=== PATIENT | female | born 1965 | race Two or more races ===

== ENCOUNTER → 2018-06-13 | Day surgery (SDC) | payer OTHER ==
--- NOTE | 2018-06-16 14:01 | OP ---
DATE OF OPERATION: 06/13/2018 PREOPERATIVE DIAGNOSIS: Right breast mass 10 o'clock to 11 o'clock 4 cm from the nipple with suspicious right axillary node. PROCEDURE: Right breast and right axillary node ultrasound-guided core biopsies with clip placements. ANESTHESIA: Local. ATTENDING SURGEON: Maria Alejandra Robertson MD ESTIMATED BLOOD LOSS: Minimal. COMPLICATIONS: None. DESCRIPTION OF PROCEDURE: The patient was made aware of the risks and benefits of the surgery and consented. She was placed in a supine position, and under sterile conditions and 1% lidocaine for local anesthesia, the right axillary node was approached, and a small maurice was made in the skin. Using a 13-gauge suction biopsy device under ultrasound guidance, multiple cores were obtained and submitted to Pathology. Likewise, under ultrasound guidance, a [employer]mark open core clip was placed into the biopsy region. Steri-Strips and a sterile bandage were applied. Right breast mass was then approached. Under sterile conditions with 1% lidocaine for local anesthesia, a small maurice was made in the skin. Using a 13-gauge suction biopsy device under ultrasound guidance, multiple cores were obtained and submitted to Pathology. Likewise, under ultrasound guidance, a U-shaped clip was placed into the biopsy region. Steri-Strips and a sterile dressing was then applied well tolerated by patient. We will contact her with these results. MARIA ALEJANDRA ROBERTSON M.D. [id number]
--- NOTE | 2018-06-16 14:29 | PATH ---
Surgical Pathology Report Patient Name: GENE ARIAS [facility]. Rec. #: [id number] /Age/Gender: 1965 (Age: 53) / F Account: [id number] Location: [facility] Taken: 06/13/2018 Received: 06/13/2018 Reported: 06/16/2018 Physicians: Maria Alejandra Robertson M.D. Specimen(s) Received A: RIGHT AXILLARY LYMPH NODE CORE BIOPSY B: RIGHT BREAST 10:00 4 CM FN CORE BIOPSY Clinical History Ultrasound findings: Highly suspicious/malignant Final Diagnosis A. 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 (See note). Note: No landmark lymph node tissue is identified; this may represent lymph node tissue extensively involved/replaced by metastatic carcinoma. B. breast, right, 10 -:00, 4 cm FN, core biopsy: Invasive ductal carcinoma, poorly differentiated with extensive necrosis. Results of ER and IN studies performed on block B at [facility] are as follows: ER (clone [id number] mouse monoclonal antibody by [employer]): ~5 % nuclear staining with weak intensity (Low Positive). IN (clone16 mouse monoclonal antibody by [employer]): 0 % nuclear staining (Negative). Results of Her2 & Ki67 studies will be reported separately in an addendum. Positive and negative controls (internal if applicable) show appropriate results. Formalin fixation time is within current ASCO/CAP recommendations for ER, IN and Her2 testing. Time to formalin fixation (cold ischemic time) is not given, but presumed to be immediate. Electronically Signed Venecia Lopez M.D. Addendum Reported: 06/17/2018 Addendum Diagnosis Results of Her2 (IHC) & Ki-67 studies performed on block B at [place], [place] ([id number]) are as follows: Her2 IHC (EP3 from [employer], formerly known as [id number], using Fernández Polymer Refine detection kit): 0 (Negative). Ki-67: ~90% (high proliferative index). Positive and negative controls (internal if applicable) show appropriate results. Venecia Lopez M.D. Gross Description A. Received in formalin labeled "right axilla lymph node #1," is a 1.2 x 1.1 x 0.2 cm aggregate of avalos-yellow, irregular to cylindrical portions of fibroadipose tissue admixed with blood clot. The formalin is filtered and the specimen is entirely submitted in one cassette. B. Received in formalin labeled "right breast 10-11:00, 4cmfn #2," is a 1.5 x 1.5 x 0.3 cm aggregate of avalos-yellow, irregular to cylindrical portions of fibroadipose tissue. The formalin is filtered and the specimen is entirely submitted in one cassette. Time to formalin fixation: Not given, presumed immediate Total formalin fixation time: Approximately 6 hours 06/13/201806/13/2018
== END | disposition home or self-care (01) ==
LOC: FRADUS-SUR 10:32
PROVIDERS: ATTEND Surgery Surgical Oncology
PROC: 0HBT3ZX Excision of Right Breast, Percutaneous Approach, Diagnostic (ICD-10-PCS; principal; 2018-06-13)
PROC: 07B53ZX Excision of Right Axillary Lymphatic, Percutaneous Approach, Diagnostic (ICD-10-PCS; 2018-06-13)
PROC: BH47ZZZ Ultrasonography of Upper Extremity (ICD-10-PCS; 2018-06-13)
DX: C50.411 Malignant neoplasm of upper-outer quadrant of right female breast (principal); C77.3 Secondary and unspecified malignant neoplasm of axilla and upper limb lymph nodes; Z17.0 Estrogen receptor positive status [ER+]; N63.11 Unspecified lump in the right breast, upper outer quadrant
CPT/HCPCS: 19083; 76641-TC-RT; 76942-TC; 87899; 88305-TC; 88342-TC; A4648

== ENCOUNTER 2018-07-18 07:22 | Day surgery (SDC) | payer OTHER ==
[2018-07-18] MEDS ORDERED: PALONOSETRON HCL 0.25 MG/5 ML VIAL IVPUSH ONE (08:00)
[2018-07-18] MEDS ORDERED: diphenhydrAMINE HCL 25 MG CAPSULE (FP) PO ONE (08:00)
[2018-07-18] MEDS ORDERED: DEXAMETHASONE SODIUM PHOSPHATE 10 MG in SODIUM CHLORIDE 50 ML IVPB ONE (08:00)
[2018-07-18] MEDS ORDERED: FOSAPREPITANT DIMEGLUMINE 150 MG in SODIUM CHLORIDE 145 ML IVPB ONE (08:00)
[2018-07-18] MEDS ORDERED: ACETAMINOPHEN 325 MG TABLET (FP) PO ONE (08:00)
[2018-07-18] MEDS ORDERED: SODIUM CHLORIDE IV ONE (08:30)
[2018-07-18] MEDS ORDERED: DOCETAXEL IV ONE (08:30)
[2018-07-18] MEDS ORDERED: SODIUM CHLORIDE IVPB ONE (09:30)
[2018-07-18] MEDS ORDERED: CARBOPLATIN IVPB ONE (09:30)
[2018-07-18] MEDS ORDERED: SODIUM CHLORIDE 750 ML IV STA (09:36)
[2018-07-18 09:48] LABS: BASO % 0.1 % (0-2.0); HEMATOCRIT 35.1 % (32.4-45.2); HEMOGLOBIN 11.9 GM/dL (10.7-15.3); LYMPH % 10.1 % (8-40); MCH 31.7 pg (25.7-33.7); MEAN CELL VOLUME 93.1 fl (80-96); MONO % 4.4 % (3.8-10.2); NEUT % 85.4 % (42.8-82.8); PLATELET COUNT 263 K/MM3 (134-434); RBC 3.77 M/mm3 (3.60-5.2); RDW 12.5 % (11.6-15.6); WHITE BLOOD COUNT 7.9 K/mm3 (4.0-10.0)
[2018-07-18 10:18] LABS: ALBUMIN 3.8 g/dl (3.4-5.0); ALK PHOS 95 U/L (45-117); ANION GAP 9 MMOL/L (8-16); BILIRUBIN,DIRECT 0.2 mg/dL (0.0-0.2); BILIRUBIN,TOTAL 0.9 mg/dL (0.2-1); BLOOD UREA NITROGEN 20 mg/dL (7-18); CHLORIDE 105 mmol/L (98-107); CO2 27 mmol/L (21-32); CREATININE 0.6 mg/dL (0.55-1.3); GLUCOSE,RANDOM 138 mg/dL (74-106); POTASSIUM 3.8 mmol/L (3.5-5.1); SGOT/AST 14 U/L (15-37); SGPT/ALT 28 U/L (13-61); SODIUM 141 mmol/L (136-145); TOT PROT 7.6 g/dl (6.4-8.2)
[2018-07-18] MEDS ORDERED: PORTA CATH FLUSH 10 ML IVPUSH ONE (11:10)
[2018-07-18 17:34] VITALS: BP 113/61; PULSE 113; TEMP 98.3
== END 2018-07-18 17:43 | disposition home or self-care (01) ==
LOC: JONCCHEMO 07:22 → J7W 10:13 → JONCCHEMO 17:43
PROVIDERS: ATTEND Internal Medicine Hematology & Oncology
DX: Z51.11 Encounter for antineoplastic chemotherapy (principal); C50.411 Malignant neoplasm of upper-outer quadrant of right female breast; C77.3 Secondary and unspecified malignant neoplasm of axilla and upper limb lymph nodes; Z17.0 Estrogen receptor positive status [ER+]
CPT/HCPCS: 36415; 80048; 80076; 83735; 85025; 96361; 96367; 96375; 96413; 96417; J1453; J2469; J7030; J9171

== ENCOUNTER 2018-07-19 11:46 | Day surgery (SDC) | payer OTHER ==
[~2018-07-19 11:46] MED LIST: PEGFILGRASTIM 6 MG/0.6 ML DISP.SYRIN SQ ONE
[2018-07-19 12:12] VITALS: BP 107/58; PULSE 68; TEMP 98
== END 2018-07-19 12:30 | disposition home or self-care (01) ==
LOC: JONCCHEMO 11:46 → J7W 11:58 → JONCCHEMO 12:30
PROVIDERS: ATTEND Internal Medicine Hematology & Oncology
PROC: 3E013GC Introduction of Other Therapeutic Substance into Subcutaneous Tissue, Percutaneous Approach (ICD-10-PCS; principal; 2018-07-19)
DX: C50.411 Malignant neoplasm of upper-outer quadrant of right female breast (principal); C77.3 Secondary and unspecified malignant neoplasm of axilla and upper limb lymph nodes; Z17.0 Estrogen receptor positive status [ER+]; Z76.89 Persons encountering health services in other specified circumstances
CPT/HCPCS: 96372; J2505

== ENCOUNTER 2018-08-08 06:38 | Day surgery (SDC) | payer OTHER ==
[2018-08-08 09:32] LABS: BASO % 0.7 % (0-2.0); EOS % 0.1 % (0-4.5); HEMATOCRIT 35.8 % (32.4-45.2); HEMOGLOBIN 12.4 GM/dL (10.7-15.3); LYMPH % 19.3 % (8-40); MCH 32.9 pg (25.7-33.7); MCHC 34.6 g/dl (32.0-36.0); MEAN CELL VOLUME 95.1 fl (80-96); MEAN PLT VOLUME 7.9 fl (7.5-11.1); MONO % 5.1 % (3.8-10.2); NEUT % 74.8 % (42.8-82.8); PLATELET COUNT 237 K/MM3 (134-434); RBC 3.76 M/mm3 (3.60-5.2); RDW 13.7 % (11.6-15.6); WHITE BLOOD COUNT 4.3 K/mm3 (4.0-10.0)
[2018-08-08] MEDS ORDERED: FOSAPREPITANT DIMEGLUMINE 150 MG in SODIUM CHLORIDE 150 ML IVPB ONE (10:00)
[2018-08-08] MEDS ORDERED: PALONOSETRON HCL 0.25 MG/5 ML VIAL IVPUSH ONE (10:00)
[2018-08-08] MEDS ORDERED: DEXAMETHASONE SODIUM PHOSPHATE 10 MG in SODIUM CHLORIDE 50 ML IVPB ONE (10:00)
[2018-08-08] MEDS ORDERED: ACETAMINOPHEN 325 MG TABLET (FP) PO ONE (10:00)
[2018-08-08] MEDS ORDERED: diphenhydrAMINE HCL 25 MG CAPSULE (FP) PO ONE (10:00)
[2018-08-08 10:11] LABS: ALK PHOS 121 U/L (45-117); ANION GAP 4 MMOL/L (8-16); BILIRUBIN,DIRECT 0.1 mg/dL (0.0-0.2); BILIRUBIN,TOTAL 0.5 mg/dL (0.2-1); BLOOD UREA NITROGEN 19 mg/dL (7-18); CALCIUM 9.3 mg/dL (8.5-10.1); CHLORIDE 105 mmol/L (98-107); CO2 29 mmol/L (21-32); CREATININE 0.6 mg/dL (0.55-1.3); GLUCOSE,RANDOM 110 mg/dL (74-106); MAGNESIUM 2.1 mg/dL (1.8-2.4); POTASSIUM 4.9 mmol/L (3.5-5.1); SGOT/AST 18 U/L (15-37); SGPT/ALT 40 U/L (13-61); SODIUM 138 mmol/L (136-145); TOT PROT 7.9 g/dl (6.4-8.2)
[2018-08-08] MEDS ORDERED: DOCETAXEL IV ONE (10:30)
[2018-08-08] MEDS ORDERED: SODIUM CHLORIDE IV ONE (10:30)
[2018-08-08] MEDS ORDERED: SODIUM CHLORIDE 750 ML IV SCH (11:15)
[2018-08-08] MEDS ORDERED: DEXAMETHASONE SOD PHOSPHATE 10 MG/1 ML VIAL IVPB ONE (11:15)
[2018-08-08] MEDS ORDERED: SODIUM CHLORIDE IVPB ONE (11:30)
[2018-08-08] MEDS ORDERED: CARBOPLATIN IVPB ONE (11:30)
[2018-08-08 13:35] VITALS: TEMP 98
[2018-08-08] MEDS ORDERED: PORTA CATH FLUSH 10 ML IVPUSH ONE (14:31)
[2018-08-08 17:27] VITALS: BP 113/58; PULSE 61
== END 2018-08-08 17:15 | disposition home or self-care (01) ==
LOC: JONCCHEMO 06:38 → J7W 10:28 → JONCCHEMO 17:15
PROVIDERS: ATTEND Internal Medicine Hematology & Oncology
DX: Z51.11 Encounter for antineoplastic chemotherapy (principal); C50.411 Malignant neoplasm of upper-outer quadrant of right female breast; C77.3 Secondary and unspecified malignant neoplasm of axilla and upper limb lymph nodes; Z17.0 Estrogen receptor positive status [ER+]
CPT/HCPCS: 36415; 80048; 80076; 83735; 85025; 96361; 96367; 96375; 96413; 96417; J1100; J1453; J2469; J7030; J9171

== ENCOUNTER 2018-08-09 10:35 | Day surgery (SDC) | payer OTHER ==
[2018-08-09 11:03] VITALS: BP 115/71; PULSE 78; TEMP 98.4
== END 2018-08-09 11:20 | disposition home or self-care (01) ==
LOC: JONCCHEMO 10:35 → J7W 10:36 → JONCCHEMO 11:20
PROVIDERS: ATTEND Internal Medicine Hematology & Oncology
PROC: 3E013GC Introduction of Other Therapeutic Substance into Subcutaneous Tissue, Percutaneous Approach (ICD-10-PCS; principal; 2018-08-09)
DX: C50.411 Malignant neoplasm of upper-outer quadrant of right female breast (principal); C77.3 Secondary and unspecified malignant neoplasm of axilla and upper limb lymph nodes; Z17.0 Estrogen receptor positive status [ER+]; Z76.89 Persons encountering health services in other specified circumstances
CPT/HCPCS: 96372; J2505

== ENCOUNTER 2018-08-14 15:33 | Inpatient (IN) | payer OTHER ==
--- NOTE | 2018-08-14 15:54 | PDOC ---
Rapid Medical Evaluation Chief Complaint: Cold Symptoms Time Seen by Provider: 08/14/18 15:51 Medical Evaluation: Allergies Allergy/AdvReac Type Severity Reaction Status Date / Time No Known Allergies Allergy Verified 07/16/18 21:12 Vital Signs Temp Pulse Resp BP Pulse Ox 98.9 F 106 H 16 115/73 98 08/14/18 15:40 08/14/18 15:40 08/14/18 15:40 08/14/18 15:40 08/14/18 15:40 08/14/18 15:51 I have performed a brief in-person evaluation of this patient. The patient presents with a chief complaint of: BIBA with h/o breast CA with complains of fever and chills since this AM. Pt report had fever of 104F and took tylenol prior to EMS arriving which fever had improved. Denies cough, SOB, CP, N/V, nasal congestion,. Pertinent physical exam findings: A&O x 3, Afebrile I have ordered the following: CBC, CMP, UA, UCX The patient will proceed to the ED for further evaluation. 08/14/18 15:53 Discharge Disposition - Diagnosis Fever Qualifiers: Fever type: unspecified Qualified Code(s): R50.9 - Fever, unspecified - Discharge Dispostion Condition at time of disposition: Stable - Referrals - Patient Instructions - Post Discharge Activity
[2018-08-14 16:21] LABS: URINE APPEARANCE CLEAR; URINE BILIRUBIN NEGATIVE (<2.0 mg/dL); URINE COLOR LTYELLOW; URINE GLUCOSE (UA) NEGATIVE (NEGATIVE); URINE KETONE NEGATIVE (NEGATIVE); URINE LEUK ESTERASE NEGATIVE (NEGATIVE); URINE NITRITE NEGATIVE (NEGATIVE); URINE PROTEIN NEGATIVE (NEGATIVE); URINE UROBILINOGEN NEGATIVE mg/dL (0.2-1.0)
[2018-08-14 16:25] LABS: HEMATOCRIT 33.4 % (32.4-45.2); HEMOGLOBIN 11.6 GM/dL (10.7-15.3); MCH 32.9 pg (25.7-33.7); MCHC 34.9 g/dl (32.0-36.0); MEAN CELL VOLUME 94.3 fl (80-96); MEAN PLT VOLUME 9.1 fl (7.5-11.1); PLATELET COUNT 161 K/MM3 (134-434); RBC 3.54 M/mm3 (3.60-5.2); RDW 13.9 % (11.6-15.6); WHITE BLOOD COUNT 4.3 K/mm3 (4.0-10.0)
[2018-08-14 16:26] LABS: EOS % 1.3 % (0-4.5); LYMPH % 28.7 % (8-40); MONO % 7.9 % (3.8-10.2); NEUT % 61.1 % (42.8-82.8)
[2018-08-14 16:39] LABS: ALBUMIN 4.4 g/dl (3.4-5.0); ALK PHOS 143 U/L (45-117); ANION GAP 8 MMOL/L (8-16); BILIRUBIN,TOTAL 0.4 mg/dL (0.2-1); BLOOD UREA NITROGEN 18 mg/dL (7-18); CALCIUM 8.7 mg/dL (8.5-10.1); CHLORIDE 102 mmol/L (98-107); CO2 28 mmol/L (21-32); CREATININE 0.6 mg/dL (0.55-1.3); GLUCOSE,RANDOM 97 mg/dL (74-106); POTASSIUM 4.3 mmol/L (3.5-5.1); SGOT/AST 25 U/L (15-37); SGPT/ALT 40 U/L (13-61); SODIUM 137 mmol/L (136-145); TOT PROT 7.5 g/dl (6.4-8.2)
--- NOTE | 2018-08-14 16:46 | PDOC ---
History of Present Illness - General Chief Complaint: Cold Symptoms Stated Complaint: FEVER Time Seen by Provider: 08/14/18 15:51 History Source: Patient - History of Present Illness Initial Comments: 08/14/18 16:55 53 yo female with PMH breast CA (left sided s/p 6 doses chemo and Left total mastectomy, now recent dx right breast Ca, 2nd dose chemo 08/08/18, plan for Right mastectomy) presents with fever that began today around 1pm. She states that her initial temperature was 100.4. She took a cold shower and her temperature improved to 100.2. She denies any other associated symptoms including headache, cough, chills, myalgias, chest pain, SOB, nausea, abdominal pain, vomiting, diarrhea, dysuria, hematuria. She states that with her recent dose of chemo she spoke with her Oncologist, Dr. Finch, who recommended she come to the Emergency room for evaluation and further management. Past History - Travel Traveled outside of the country in the last 30 days: No - Past Medical History Allergies/Adverse Reactions: Allergies Allergy/AdvReac Type Severity Reaction Status Date / Time No Known Allergies Allergy Verified 07/16/18 21:12 Home Medications: Ambulatory Orders NK [No Known Home Medication] 08/14/18 Asthma: No Cancer: Yes (Left breast CA @ 38, recent dx Right breast CA) Cardiac Disorders: No COPD: No Diabetes: No HTN: No - Surgical History Other Surgical History: 08/14/18 17:00 Left total Mastectomy - Immunization History Immunization Up to Date: Yes - Suicide/Smoking/Psychosocial Hx Smoking History: Never smoked Have you smoked in the past 12 months: No Hx Alcohol Use: No Drug/Substance Use Hx: No Review of Systems - Review of Systems Able to Perform ROS?: Yes Is the patient limited Grenadian proficient: Yes Constitutional: Yes: Fever. No: Chills, Loss of Appetite, Night Sweats HEENTM: No: Blurred Vision, Throat Pain Respiratory: No: Cough, Shortness of Breath, Wheezing Cardiac (ROS): No: Chest Pain, Edema ABD/GI: No: Abdominal Distended, Nausea, Vomiting : No: Burning, Dysuria, Discharge, Hematuria Musculoskeletal: No: Back Pain, Muscle Pain Neurological: No: Headache, Weakness *Physical Exam - Vital Signs Last Vital Signs Temp Pulse Resp BP Pulse Ox 98.9 F 106 H 16 115/73 98 02/14/19 15:40 08/14/18 15:40 08/14/18 15:40 08/14/18 15:40 08/14/18 15:40 - Physical Exam Comments: 08/14/18 17:01 GEN: A&O, no acute distress HEENT: moist mucus membranes, no exudates, PERRL, EOMI NECK: Supple, no lymphadenopathy, no point tenderness or nuchal rigidity HEART: Tachycardic, no murmurs or rubs LUNGS: CTA b/l, no wheezes or rhonchi ABDOMEN: Soft, nontender, normoactice bowel sounds EXTREMITIES: no peripheral edema, no calf tenderness Moderate Sedation - Procedure Monitoring Vital Signs: Procedure Monitoring Vital Signs Temperature 98.9 F 08/14/18 15:40 Pulse Rate 106 H 08/14/18 15:40 Respiratory Rate 16 08/14/18 15:40 Blood Pressure 115/73 08/14/18 15:40 O2 Sat by Pulse Oximetry (%) 98 08/14/18 15:40 ED Treatment Course - LABORATORY CBC & Chemistry Diagram: 08/14/18 16:02 08/14/18 16:04 - ADDITIONAL ORDERS Additional order review: Laboratory Results 08/14/18 08/14/18 16:04 16:04 Sodium 137 Potassium 4.3 Chloride 102 Carbon Dioxide 28 Anion Gap 8 BUN 18 Creatinine 0.6 Creat Clearance w eGFR > 60 Random Glucose 97 Calcium 8.7 Total Bilirubin 0.4 AST 25 ALT 40 Alkaline Phosphatase 143 H Total Protein 7.5 Albumin 4.4 Urine Color Ltyellow Urine Appearance Clear Urine pH 5.0 Ur Specific [place] 1.015 Urine Protein Negative Urine Glucose (UA) Negative Urine Ketones Negative Urine Blood Negative Urine Nitrite Negative Urine Bilirubin Negative Urine Urobilinogen Negative Ur Leukocyte Esterase Negative 08/14/18 16:02 RBC 3.54 L MCV 94.3 MCHC 34.9 RDW 13.9 MPV 9.1 D Neutrophils % 61.1 Lymphocytes % 28.7 D Monocytes % 7.9 Eosinophils % 1.3 D Basophils % 1.0 Medical Decision Making - Medical Decision Making 08/14/18 17:[address] Finch who recommends admission for close observation until cultures result, CXR, hydration, cultures (blood/urine/fifi cath), Vanc/ Zosyn, and ID consultation. Discussed with patient who is in agreement with oncology recommendations. 08/14/18 17:30 Case discussed with ED attending, will await CXR and cultures to be drawn and discuss with hospitalist for admission/observation *DC/Admit/Observation/Transfer Diagnosis at time of Disposition: Breast CA Fever Qualifiers: Fever type: unspecified Qualified Code(s): R50.9 - Fever, unspecified - Discharge Dispostion Condition at time of disposition: Stable Decision to Admit order: Yes - Referrals Referrals: Jayla Zamora [Primary Care Provider] - - Patient Instructions - Post Discharge Activity Forms/Work/School Notes: Back to Work
--- NOTE | 2018-08-14 16:49 | PDOC ---
Attending Attestation - HPI HPI: 08/14/18 17:32 The patient is a 53 year old female with a PMH of breast CA who presents to the ER with fever today. Patient states her temperature was 100.4 today. Patient denies any other associated symptoms. Patient follows with Dr. Finch, her oncologist. Denies cp, sob, nausea, vomiting, diarrhea, abd pain, or urinary symptoms. Allergies: NKA Past surgical history: Left total Mastectomy Social history: No reported alcohol, drug or cigarette use. PCP: Dr. Zamora <Leslie Castro - Last Filed: 08/14/18 17:37> - Resident Resident Name: Kendall Real - Physicial Exam PE: 08/14/18 18:15 Agree with resident exam . Patient is alert and oriented x 3 and in no acute distress. Lungs are clear. Heart has regular rate and rhythm. - Medical Decision Making 08/14/18 18:16 Pt presents to the ED complaining of fever at home. Recently started on chemo. Patient has no symptoms that point to a source, and is in no acute distress. However, she was recently started on chemotherapy and Dr. Camacho would like her to be admitted given her immunocompromised state and her fever. Will check labs , blood and urine cx and cxr and start broad spectrum antibiotics. <Carlene Trujillo - Last Filed: 08/14/18 18:18>
[2018-08-14] MEDS ORDERED: LACTATED RINGERS SOLUTION 1000 ML INFUS.BAG IV ONE (17:21)
[2018-08-14] MEDS ORDERED: VANCOMYCIN 1 GM in D5W (PRE-DOCKED) 1,000 MG/250 ML IVPB ONE (17:25)
[2018-08-14] MEDS ORDERED: PIPERACILLIN/TAZOB 3.375 GM 3.375 GM in DEXTROSE 5%-WATER - 50 ML IVPB ONE (17:26)
--- NOTE | 2018-08-14 18:02 | CONSULT ---
Consult - text type - Consultation Consultation Note: Patient seen and exammined Well known to our service 53 y/o patient with stage IIB breast cancer, triple negative , BRCA mutated , on taxotere/carboplatin, here with fever and shaking chaills. Denies abdominal pain/cough/SOB/nausea/vomiting/urinary symptoms Last Vital Signs Temp Pulse Resp BP Pulse Ox 98 F 82 18 125/85 99 08/16/18 09:00 08/16/18 09:00 08/16/18 09:00 08/16/18 09:00 08/16/18 09:00 Cor: RSR, No murmurs, No gallops Lungs: Clear to P&A Abd: Soft, Normal bowel sounds, No organomegaly Ext:No significant edema Labs/Meds reviewed A/P 53 y/o patient with stage IIB breast cancer , triple negative, BRCA mutated,l C2 D7 taxotere/carboplatin Very good clinical response Now with fever to 101 No localizing signs/symptoms Check cultures empiric vanc/zosyn Fluids ID consult
[2018-08-14] MEDS ORDERED: VANCOMYCIN 1 GRAM (PRE-DOCKED) 1,000 MG/250 ML BAG IVPB ONE (19:49)
[2018-08-14] MEDS ORDERED: PIPERACILLIN/TAZOB 3.375 GM 3.375 GM/50 ML BAG IVPB ONE (19:49)
--- NOTE | 2018-08-14 20:29 | HP ---
CHIEF COMPLAINT: fever PCP: Noah Oncology: Josette HISTORY OF PRESENT ILLNESS: This is a 53 year old female with a past medical history of left breast cancer 2002, s/p mastectomy, recent dx right breast cancer, BrCA1 mutation on chemo who presented with fever. Pt denies any other complaints such as cough, runny nose, chest pain, abdominal pain, N/V/D. Pt reports that a bump appeared on her left inner forearm just now. + itchiness. ER course was notable for: (1) given vanc/zosyn (2) CXR unremarkable (3) WBC 4.3 Recent Travel: pt denies PAST MEDICAL HISTORY: Left breast cancer PAST SURGICAL HISTORY: left mastectomy Social History: Smoking: pt denies Alcohol: pt denies Drugs: pt denies Family History: mother , accident father , lung CA aunt s/p breast cancer survivor siblings and children all without medical issues Allergies No Known Allergies Allergy (Verified 07/16/18 21:12) HOME MEDICATIONS: 3 Medication Instructions Recorded NK [No Known Home Medication] 08/14/18 REVIEW OF SYSTEMS CONSTITUTIONAL: present: fever Absent: chills, diaphoresis, generalized weakness, malaise, loss of appetite, weight change HEENT: Absent: rhinorrhea, nasal congestion, throat pain, throat swelling, difficulty swallowing, mouth swelling, ear pain, eye pain, visual changes CARDIOVASCULAR: Absent: chest pain, syncope, palpitations, irregular heart rate, lightheadedness , peripheral edema RESPIRATORY: Absent: cough, shortness of breath, dyspnea with exertion, orthopnea, wheezing, stridor, hemoptysis GASTROINTESTINAL: Absent: abdominal pain, abdominal distension, nausea, vomiting, diarrhea, constipation, melena, hematochezia GENITOURINARY: Absent: dysuria, frequency, urgency, hesitancy, hematuria, flank pain, genital pain MUSCULOSKELETAL: Absent: myalgia, arthralgia, joint swelling, back pain, neck pain SKIN: Present: itching Absent: rash, pallor HEMATOLOGIC/IMMUNOLOGIC: Absent: easy bleeding, easy bruising, lymphadenopathy, frequent infections ENDOCRINE: Absent: unexplained weight gain, unexplained weight loss, heat intolerance, cold intolerance NEUROLOGIC: Absent: headache, focal weakness or paresthesias, dizziness, unsteady gait, seizure, mental status changes, bladder or bowel incontinence PSYCHIATRIC: Absent: anxiety, depression, suicidal or homicidal ideation, hallucinations. PHYSICAL EXAMINATION Vital Signs - 24 hr 3 08/14/18 15:40 Temperature 98.9 F Pulse Rate 106 H Respiratory 16 Rate Blood Pressure 115/73 O2 Sat by Pulse 98 Oximetry (%) GENERAL: Awake, alert, and fully oriented, in no acute distress. HEAD: Normal with no signs of trauma. EYES: Pupils equal, round and reactive to light, extraocular movements intact, sclera anicteric, conjunctiva clear. No lid lag. EARS, NOSE, THROAT: Ears normal, nares patent, oropharynx clear without exudates. Moist mucous membranes. NECK: Normal range of motion, supple without lymphadenopathy, JVD, or masses. LUNGS: Breath sounds equal, clear to auscultation bilaterally. No wheezes, and no crackles. No accessory muscle use. HEART: Regular rate and rhythm, normal S1 and S2 without murmur, rub or gallop. ABDOMEN: Soft, nontender, not distended, normoactive bowel sounds, no guarding, no rebound, no masses. No hepatomegaly or splenomegaly. MUSCULOSKELETAL: Normal range of motion at all joints. No bony deformities or tenderness. No CVA tenderness. UPPER EXTREMITIES: 2+ pulses, warm, well-perfused. No cyanosis. No clubbing. No peripheral edema. LOWER EXTREMITIES: 2+ pulses, warm, well-perfused. No calf tenderness. No peripheral edema. NEUROLOGICAL: Cranial nerves II-XII intact. Normal speech. Normal gait. PSYCHIATRIC: Cooperative. Good eye contact. Appropriate mood and affect. SKIN: Warm, dry, normal turgor, normal capillary refill. + papule left inner forearm, flesh colored, approx 0.7cm diameter. No erythema to surrounding skin Laboratory Results - last 24 hr 3 08/14/18 08/14/18 08/14/18 08/14/18 16:02 16:04 16:04 16:25 WBC 4.3 RBC 3.54 L Hgb 11.6 Hct 33.4 MCV 94.3 MCH 32.9 MCHC 34.9 RDW 13.9 Plt Count 161 D MPV 9.1 D Absolute Neuts (auto) 2.6 Neutrophils % 61.1 Lymphocytes % 28.7 D Monocytes % 7.9 Eosinophils % 1.3 D Basophils % 1.0 Nucleated RBC % 0 Sodium 137 Potassium 4.3 Chloride 102 Carbon Dioxide 28 Anion Gap 8 BUN 18 Creatinine 0.6 Creat Clearance w eGFR > 60 Random Glucose 97 Calcium 8.7 Total Bilirubin 0.4 AST 25 ALT 40 Alkaline Phosphatase 143 H Total Protein 7.5 Albumin 4.4 Urine Color Ltyellow Urine Appearance Clear Urine pH 5.0 Ur Specific [place] 1.015 Urine Protein Negative Urine Glucose (UA) Negative Urine Ketones Negative Urine Blood Negative Urine Nitrite Negative Urine Bilirubin Negative Urine Urobilinogen Negative Ur Leukocyte Esterase Negative Influenza A (Rapid) Negative Influenza B (Rapid) Negative ASSESSMENT/PLAN: 53yF with Breast cancer currently on chemo presented with fever. Fever of unknown origin in setting of current chemotherapy - flu swab negative, u/a negative, CXR unremarkable - cont coverage with vanc/zosyn for now - pt expected to become neutropenic in the next few days, monitor CBC, s/p neulasta on 08/09 - ID consult Skin papule - consider derm consult, monitor closely for s/s progressing rash Breast cancer - s/p chemo 08/08: carboplatin, docetaxel, fosaprepitant, palonosetron, dex and benadryl - d/w Dr. Finch, will be entering [facility] in next few days. DVT PPX - heparin bid FEN - tolerating po - monitor BMP, lytes stable presently - regular diet as tolerated Dispo: pt currently requires further inpatient management for IV antibiotics and close monitoring of her CBC. Visit type - Emergency Visit Emergency Visit: Yes ED Registration Date: 08/14/18 Care time: The patient presented to the Emergency Department on the above date and was hospitalized for further evaluation of their emergent condition. - New Patient This patient is new to me today: Yes Date on this admission: 08/14/18 - Critical Care Critical Care patient: No
[2018-08-14 22:09] LABS: PLATELET ESTIMATE ADEQUATE
[2018-08-14] MEDS ORDERED: HEPARIN NA (PORCINE) 5,000 UNITS/ML 1ML VIAL ONE (23:26)
[2018-08-14] MEDS: HEPARIN NA (PORCINE) 5,000 UNITS/ML 1ML VIAL SQ SCH (23:48)
[2018-08-15 02:49] VITALS: BMI 27.5
[2018-08-15] MEDS ORDERED: PIPERACILLIN/TAZOBACTAM 3.375 GM VIAL IVPB ONE (02:56)
[2018-08-15] MEDS ORDERED: DEXTROSE 5%-WATER - 50 ML IVPB ONE ×2 (02:56→15:55)
[2018-08-15] MEDS ORDERED: PIPERACILLIN/TAZOB 3.375 GM 3.375 GM in DEXTROSE 5%-WATER - 50 ML IVPB ONE (03:00)
[2018-08-15] MEDS ORDERED: SODIUM CHLORIDE 500 ML IV STA (07:08)
[2018-08-15 07:47] LABS: BASO % 1.2 % (0-2.0); EOS % 1.2 % (0-4.5); HEMATOCRIT 29.8 % (32.4-45.2); HEMOGLOBIN 10.2 GM/dL (10.7-15.3); LYMPH % 29.2 % (8-40); MCH 32.2 pg (25.7-33.7); MCHC 34.4 g/dl (32.0-36.0); MEAN CELL VOLUME 93.4 fl (80-96); MEAN PLT VOLUME 8.8 fl (7.5-11.1); MONO % 18.5 % (3.8-10.2); NEUT % 49.9 % (42.8-82.8); PLATELET COUNT 127 K/MM3 (134-434); RBC 3.18 M/mm3 (3.60-5.2); RDW 13.9 % (11.6-15.6); WHITE BLOOD COUNT 2.9 K/mm3 (4.0-10.0)
[2018-08-15 08:10] LABS: ANION GAP 4 MMOL/L (8-16); BLOOD UREA NITROGEN 13 mg/dL (7-18); CALCIUM 8.8 mg/dL (8.5-10.1); CHLORIDE 102 mmol/L (98-107); CO2 32 mmol/L (21-32); CREATININE 0.5 mg/dL (0.55-1.3); GLUCOSE,RANDOM 85 mg/dL (74-106); MAGNESIUM 2.3 mg/dL (1.8-2.4); PHOSPHOROUS 4.4 mg/dL (2.5-4.9); POTASSIUM 4.4 mmol/L (3.5-5.1); SODIUM 137 mmol/L (136-145)
[2018-08-15] MEDS: SODIUM CHLORIDE 1,000 ML IV SCH (09:27)
[2018-08-15] MEDS: HEPARIN NA (PORCINE) 5,000 UNITS/ML 1ML VIAL SQ SCH ×2 (09:27→22:24)
--- NOTE | 2018-08-15 12:56 | PN ---
Progress Note (short form) - Note Progress Note: ID consult dictated imp/reccd 53 yo female with recurrent breast cancer s/p second cycle chemo 07/28 no neutropoenic admitted yesterday with fever 100.4 no symptoms cultured and admitted given vanco/zosyn no further fevers workup negative to date cultures pending suspect transient fever she looks well rocephin today if cultures negative and afebrile home in am off antibiotics d/w dr miller Problem List - Problems (1) Fever Code(s): R50.9 - FEVER, UNSPECIFIED Qualifiers: Fever type: unspecified Qualified Code(s): R50.9 - Fever, unspecified (2) Breast CA Code(s): C50.919 - MALIGNANT NEOPLASM OF UNSP SITE OF UNSPECIFIED FEMALE BREAST
--- NOTE | 2018-08-15 15:43 | PN ---
Progress Note, Physician Chief Complaint: Fever Breast CA L mastectomy History of Present Illness: Previous notes and events reviewed awake and alert NAD currently afebrile WBC 2.9 denies chest pain, SOB - Current Medication List Current Medications: Active Medications Heparin Sodium (Porcine) (Heparin -) 5,000 unit SQ BID [facility] Last Admin: 08/15/18 09:27 Dose: 5,000 unit Sodium Chloride (Normal Saline -) 1,000 mls @ 100 mls/hr IV ASDIR [facility] Last Admin: 08/15/18 09:27 Dose: 100 mls/hr Ceftriaxone Sodium 1 gm/ (Dextrose) 50 mls @ 100 mls/hr IVPB DAILY [facility]; Protocol - Objective Vital Signs: Vital Signs Temperature 98.7 F 08/15/18 13:42 Pulse Rate 102 H 08/15/18 13:42 Respiratory Rate 18 08/15/18 13:42 Blood Pressure 113/67 08/15/18 13:42 O2 Sat by Pulse Oximetry (%) 98 08/15/18 09:00 Constitutional: Yes: No Distress, Calm Eyes: Yes: Conjunctiva Clear HENT: Yes: Normocephalic Cardiovascular: Yes: Regular Rate and Rhythm Respiratory: Yes: Regular, CTA Bilaterally Gastrointestinal: Yes: Normal Bowel Sounds, Soft Musculoskeletal: Yes: Muscle Weakness Extremities: Yes: WNL Edema: No Neurological: Yes: Alert, Oriented Psychiatric: Yes: Alert, Oriented Labs: CBC, BMP 08/15/18 06:00 08/15/18 06:00 Problem List - Problems (1) Breast CA Assessment/Plan: -oncology on board -currently afebrile -ID on board -cont with ceftriaxone -monitor WBC Code(s): C50.919 - MALIGNANT NEOPLASM OF UNSP SITE OF UNSPECIFIED FEMALE BREAST (2) Fever Assessment/Plan: -ID on board -BC, UC pending -currently afebrile -continue ceftriaxone Code(s): R50.9 - FEVER, UNSPECIFIED Qualifiers: Fever type: unspecified Qualified Code(s): R50.9 - Fever, unspecified Assessment/Plan see problem list dvt ppx
[2018-08-15] MEDS ORDERED: cefTRIAXone SODIUM 1 GM VIAL ONE (15:55)
[2018-08-15] MEDS: CEFTRIAXONE 1 GM in DEXTROSE 5%-WATER - 50 ML IVPB SCH (15:57)
--- NOTE | 2018-08-15 16:03 | PN ---
Progress Note (short form) - Note Progress Note: Patient seen and examined Offers no specific complaints on ROS Last Vital Signs Temp Pulse Resp BP Pulse Ox 98.7 F 102 H 18 113/67 98 08/15/18 13:42 08/15/18 13:42 08/15/18 13:42 08/15/18 13:42 08/15/18 09:00 HEENT: NATASHA, EOM Intact Oropharynx: No thrush, No mucositis Cor: RSR, No murmurs, No gallops Lungs: Clear to P&A Abd: Soft, Normal bowel sounds, No organomegaly Ext:No significant edema Skin: No rashes, Integument intact CBC, BMP 08/15/18 06:00 08/15/18 06:00 Current Medications Generic Name Dose Route Start Last Admin Trade Name Freq PRN Reason Stop Dose Admin Heparin Sodium (Porcine) 5,000 unit 08/14/18 22:00 08/15/18 09:27 Heparin - SQ 5,000 unit BID ABEL Administration Sodium Chloride 1,000 mls @ 100 mls/hr 08/15/18 08:08 08/15/18 09:27 Normal Saline - IV 100 mls/hr ASDIR ABEL Administration Ceftriaxone Sodium 1 gm/ 50 mls @ 100 mls/hr 08/15/18 13:00 08/15/18 15:57 Dextrose IVPB 100 mls/hr DAILY ABEL Administration Protocol Impression: Breast ca Chemotherapy Fevers--etiology unclear Neutropenia secondary to chemotherapy Plan: Antibiotic management per ID G-CSF
[2018-08-15] MEDS ORDERED: TBO-FILGRASTIM 300 MCG/0.5 ML DISP.SYRINGE SQ ONE (16:15)
--- NOTE | 2018-08-15 19:08 | CONS ---
DATE OF CONSULTATION: DATE OF DICTATION: 08/15/2018 INFECTIOUS DISEASE CONSULTATION REQUESTING CONSTITUTION PARTY: Hospitalist Service CONSULTING PHYSICIAN: Martha Gonzalez M.D. HISTORY OF PRESENT ILLNESS: This is a 53-year-old woman with recurrent breast cancer status post her second cycle of chemotherapy on July 28. She came to the emergency room yesterday with fever of 100.4. She had no localizing symptoms. She denied nausea, vomiting, cough, shortness of breath, abdominal pain or chest pain. She has a port that is not tender. She was given vancomycin and Zosyn in the ER and admitted for further evaluation. White count was 4.3. PAST MEDICAL HISTORY: Notable for left breast cancer in 2002 status post mastectomy. She now has right breast cancer and is on Taxotere and carboplatin. Today is resting comfortably and feeling well. Past medical history is as stated. FAMILY HISTORY: Notable for lung cancer in her father, breast cancer in her aunt. ALLERGIES: No known drug allergies. MEDICATION: List was not available. SOCIAL HISTORY: Originally from [facility] [place]. Denies any smoking, alcohol or drug use. REVIEW OF SYSTEMS: Fever is resolved and she feels fine. She had a transient itchy bump on her left arm that has now gone away. PHYSICAL EXAMINATION: GENERAL: She is awake and alert, pleasant woman in no acute distress. VITAL SIGNS: Temperature 98.7F, pulse 89, blood pressure 113/67, respiratory rate 18. She is saturating 98% on room air. HEENT: Normocephalic. Eyes are anicteric. She has no thrush. She has some alopecia. NECK: Supple. Port site is without any erythema. BREAST: Her left breast mastectomy sites are well healed. There is no erythema of either breast. ABDOMEN: Soft, nontender. LUNGS: Clear. EXTREMITIES: Without edema. She has no rash. LABORATORY: White count yesterday was 4.3, today is 2.9, hemoglobin 10.2, platelets are 127. BUN and creatinine are 13 and 0.5. LFTs are normal. Urinalysis is negative. Influenza screen is negative. Cultures are pending. A chest x-ray was done which shows no evidence of any infiltrate. IMPRESSION: In summary, this is a 53-year-old woman with breast cancer admitted status post chemotherapy with low grade fever doing well today. She is not neutropenic. If her cultures remain negative and her fevers resolve, it would be reasonable tomorrow to discharge her home off antibiotics. She has been switched to ceftriaxone given the fact she is not neutropenic. Case was discussed with Dr. Carvalho. MARTHA GONZALEZ M.D. [id number] MTDD
[2018-08-16] MEDS ORDERED: DEXTROSE 5%-WATER - 50 ML IVPB ONE (09:10)
[2018-08-16] MEDS ORDERED: cefTRIAXone SODIUM 1 GM VIAL ONE (09:10)
[2018-08-16] MEDS: SODIUM CHLORIDE 1,000 ML IV SCH (09:15)
[2018-08-16] MEDS: HEPARIN NA (PORCINE) 5,000 UNITS/ML 1ML VIAL SQ SCH (09:15)
[2018-08-16] MEDS: CEFTRIAXONE 1 GM in DEXTROSE 5%-WATER - 50 ML IVPB SCH (09:15)
[2018-08-16 09:27] VITALS: BP 125/85; PULSE 82; TEMP 98
[2018-08-16 09:31] LABS: BASO % 0.5 % (0-2.0); EOS % 0.4 % (0-4.5); HEMATOCRIT 29.3 % (32.4-45.2); HEMOGLOBIN 10.1 GM/dL (10.7-15.3); LYMPH % 15.6 % (8-40); MCH 32.6 pg (25.7-33.7); MCHC 34.5 g/dl (32.0-36.0); MEAN CELL VOLUME 94.2 fl (80-96); MONO % 13.3 % (3.8-10.2); NEUT % 70.2 % (42.8-82.8); PLATELET COUNT 140 K/MM3 (134-434); RBC 3.11 M/mm3 (3.60-5.2); RDW 13.8 % (11.6-15.6); WHITE BLOOD COUNT 9.1 K/mm3 (4.0-10.0)
[2018-08-16 11:48] LABS: ALBUMIN 3.4 g/dl (3.4-5.0); ALK PHOS 123 U/L (45-117); ANION GAP 8 MMOL/L (8-16); BILIRUBIN,TOTAL 0.4 mg/dL (0.2-1); BLOOD UREA NITROGEN 9 mg/dL (7-18); CALCIUM 8.3 mg/dL (8.5-10.1); CHLORIDE 107 mmol/L (98-107); CO2 26 mmol/L (21-32); CREATININE 0.5 mg/dL (0.55-1.3); GLUCOSE,RANDOM 70 mg/dL (74-106); POTASSIUM 4.3 mmol/L (3.5-5.1); SGOT/AST 25 U/L (15-37); SGPT/ALT 41 U/L (13-61); SODIUM 141 mmol/L (136-145); TOT PROT 6.6 g/dl (6.4-8.2)
--- NOTE | 2018-08-16 12:01 | DS ---
Physical Examination Vital Signs: Vital Signs Temperature 98 F 08/16/18 09:00 Pulse Rate 82 08/16/18 09:00 Respiratory Rate 18 08/16/18 09:00 Blood Pressure 125/85 08/16/18 09:00 O2 Sat by Pulse Oximetry (%) 99 08/16/18 09:00 Findings/Remarks: Patient is a 53 y/o female with history of L breast CA with mastectomy and recent diagnosis of R breast CA. Patient is actively receiving chemotherapy and developed fever at home. In ER CXR was unremarkable with no leukocytosis noted with WBC 4.3. While in-patient evalued by ID and started on IV ABT which was tolerated with no adverse reactions noted. During hospital stay patient was afebrile but noticed to be neutropenic at 2.9. Followed by hematology and received neupogen yesterday and today WBC 9.1. Denies complaints of pain, nausea, vomiting, SOB. Constitutional: Yes: Well Nourished, No Distress, Calm Eyes: Yes: Conjunctiva Clear HENT: Yes: Normocephalic Neck: Yes: Supple Cardiovascular: Yes: Regular Rate and Rhythm Respiratory: Yes: Regular, CTA Bilaterally Gastrointestinal: Yes: Normal Bowel Sounds, Soft Musculoskeletal: Yes: WNL Extremities: Yes: WNL Edema: No Neurological: Yes: Alert, Oriented Psychiatric: Yes: Alert, Oriented Labs: CBC, BMP 08/16/18 07:33 08/16/18 07:33 Microbiology 08/14/18 16:04 Urine - Urine Clean Catch Urine Culture - Final NO GROWTH OBTAINED 08/14/18 18:40 Blood - Sharona Cath Blood Culture - Preliminary NO GROWTH OBTAINED AFTER 24 HOURS, INCUBATION TO CONTINUE FOR 4 DAYS. 08/14/18 17:49 Blood - Peripheral Venous Blood Culture - Preliminary NO GROWTH OBTAINED AFTER 24 HOURS, INCUBATION TO CONTINUE FOR 4 DAYS. 08/14/18 17:24 Blood - Peripheral Venous Blood Culture - Preliminary NO GROWTH OBTAINED AFTER 24 HOURS, INCUBATION TO CONTINUE FOR 4 DAYS. Discharge Summary Reason For Visit: FEVER, MALIGNANT NEOPLASM OF BREAST Current Active Problems Breast CA (Acute) Fever (Acute) Hospital Course: see progress notes Laboratory Results - last 24 hr 08/16/18 08/16/18 07:33 07:33 WBC 9.1 RBC 3.11 L Hgb 10.1 L Hct 29.3 L MCV 94.2 MCH 32.6 MCHC 34.5 RDW 13.8 Plt Count 140 MPV 9.0 Absolute Neuts (auto) 6.4 Neutrophils % 70.2 D Lymphocytes % 15.6 D Monocytes % 13.3 H Eosinophils % 0.4 Basophils % 0.5 Nucleated RBC % 0 Sodium 141 Potassium 4.3 Chloride 107 Carbon Dioxide 26 Anion Gap 8 BUN 9 Creatinine 0.5 L Creat Clearance w eGFR > 60 Random Glucose 70 L Calcium 8.3 L Total Bilirubin 0.4 AST 25 ALT 41 Alkaline Phosphatase 123 H Total Protein 6.6 Albumin 3.4 Microbiology 08/14/18 16:04 Urine Culture - Final Urine - Urine Clean Catch NO GROWTH OBTAINED 08/14/18 18:40 Blood Culture - Preliminary Blood - Sharona Cath NO GROWTH OBTAINED AFTER 24 HOURS, INCUBATION TO CONTINUE FOR 4 DAYS. 08/14/18 17:49 Blood Culture - Preliminary Blood - Peripheral Venous NO GROWTH OBTAINED AFTER 24 HOURS, INCUBATION TO CONTINUE FOR 4 DAYS. 08/14/18 17:24 Blood Culture - Preliminary Blood - Peripheral Venous NO GROWTH OBTAINED AFTER 24 HOURS, INCUBATION TO CONTINUE FOR 4 DAYS. Active Medications Generic Name Dose Route Start Last Admin Trade Name Dicksonq PRN Reason Stop Dose Admin Heparin Sodium (Porcine) 5,000 unit 08/14/18 22:00 08/16/18 09:15 Heparin - SQ 5,000 unit BID ABEL Administration Sodium Chloride 1,000 mls @ 100 mls/hr 08/15/18 08:08 08/16/18 09:15 Normal Saline - IV Not Given ASDIR ABEL Ceftriaxone Sodium 1 gm/ 50 mls @ 100 mls/hr 08/15/18 13:00 08/16/18 09:15 Dextrose IVPB 100 mls/hr DAILY ABEL Administration Protocol Condition: Stable - Instructions Diet, Activity, Other Instructions: Patient to follow up with PMD in 3-4 days Patient to follow up with Oncologist within 1 week of discharge continue with medication as prescribed avoid sick contacts if develop fever, severe pain at home return to ER Referrals: Jayla Zamora [Primary Care Provider] - Disposition: HOME - Home Medications Comprehensive Discharge Medication List: Ambulatory Orders NK [No Known Home Medication] 08/14/18
[2018-08-16 12:33] LABS: ANISOCYTOSIS 0; MACROCYTOSIS 0; PLATELET ESTIMATE DECREASED
== END 2018-08-16 15:34 | disposition home or self-care (01) | DRG 660 ==
LOC: JER 15:33 → JERBED 19:51 → OBSVTOIN 22:05 → J7W 08-15 00:26
PROVIDERS: ADMIT Internal Medicine; ATTEND Family Medicine
DX: D70.1 Agranulocytosis secondary to cancer chemotherapy (principal); R50.9 Fever, unspecified; C50.919 Malignant neoplasm of unspecified site of unspecified female breast
CPT/HCPCS: 36415; 71046-TC-FY; 80048; 80053; 81003; 83735; 84100; 85025; 87040; 87086; 87804; 99282-25; G0378; J1447; J1644; J7030

== ENCOUNTER 2018-08-28 05:49 | Day surgery (SDC) | payer OTHER ==
[2018-08-28] MEDS ORDERED: DEXAMETHASONE SODIUM PHOSPHATE 10 MG, DIPHENHYDRAMINE 25 MG in SODIUM CHLORIDE 100 ML IVPB ONE (08:00)
[2018-08-28] MEDS ORDERED: FOSAPREPITANT DIMEGLUMINE 150 MG in SODIUM CHLORIDE 145 ML IVPB ONE (08:00)
[2018-08-28] MEDS ORDERED: PALONOSETRON HCL 0.25 MG/5 ML VIAL IVPUSH ONE (08:00)
[2018-08-28] MEDS ORDERED: ACETAMINOPHEN 325 MG TABLET (FP) PO ONE (08:00)
[2018-08-28] MEDS ORDERED: SODIUM CHLORIDE IV ONE (08:30)
[2018-08-28] MEDS ORDERED: DOCETAXEL IV ONE (08:30)
[2018-08-28] MEDS ORDERED: CARBOPLATIN IVPB ONE (09:30)
[2018-08-28] MEDS ORDERED: SODIUM CHLORIDE IVPB ONE (09:30)
[2018-08-28 09:55] LABS: BASO % 0.1 % (0-2.0); HEMATOCRIT 32.9 % (32.4-45.2); HEMOGLOBIN 11.5 GM/dL (10.7-15.3); LYMPH % 20.3 % (8-40); MCH 33.8 pg (25.7-33.7); MCHC 34.9 g/dl (32.0-36.0); MEAN CELL VOLUME 96.7 fl (80-96); MEAN PLT VOLUME 7.7 fl (7.5-11.1); MONO % 8.8 % (3.8-10.2); NEUT % 70.8 % (42.8-82.8); PLATELET COUNT 144 K/MM3 (134-434); RDW 16.4 % (11.6-15.6); WHITE BLOOD COUNT 6.8 K/mm3 (4.0-10.0)
[2018-08-28] MEDS ORDERED: SODIUM CHLORIDE 500 ML IV STA (10:16)
[2018-08-28 10:25] LABS: ALBUMIN 4.3 g/dl (3.4-5.0); ALK PHOS 108 U/L (45-117); ANION GAP 6 MMOL/L (8-16); BILIRUBIN,TOTAL 0.5 mg/dL (0.2-1); BLOOD UREA NITROGEN 15 mg/dL (7-18); CALCIUM 9.8 mg/dL (8.5-10.1); CHLORIDE 105 mmol/L (98-107); CO2 27 mmol/L (21-32); CREATININE 0.6 mg/dL (0.55-1.3); GLUCOSE,RANDOM 95 mg/dL (74-106); POTASSIUM 4.7 mmol/L (3.5-5.1); SGOT/AST 19 U/L (15-37); SGPT/ALT 44 U/L (13-61); SODIUM 137 mmol/L (136-145); TOT PROT 7.9 g/dl (6.4-8.2)
[2018-08-28 10:28] LABS: ALBUMIN 4.3 g/dl (3.4-5.0); BILIRUBIN,DIRECT 0.1 mg/dL (0.0-0.2); BILIRUBIN,TOTAL 0.6 mg/dL (0.2-1); MAGNESIUM 1.9 mg/dL (1.8-2.4); TOT PROT 7.9 g/dl (6.4-8.2)
[2018-08-28] MEDS ORDERED: MAGNESIUM SULF 50% (8.12 MEQ/2 ML-1 GM VIAL) IVPB ONE (10:42)
[2018-08-28 17:21] VITALS: TEMP 98
[2018-08-28] MEDS ORDERED: PORTA CATH FLUSH 10 ML IVPUSH ONE (17:21)
[2018-08-28 18:28] VITALS: BP 121/68; PULSE 84
== END 2018-08-28 18:29 | disposition home or self-care (01) ==
LOC: JONCCHEMO 05:49 → J7W 10:41 → JONCCHEMO 18:29
PROVIDERS: ATTEND Internal Medicine Hematology & Oncology
DX: Z51.11 Encounter for antineoplastic chemotherapy (principal); C50.411 Malignant neoplasm of upper-outer quadrant of right female breast; C77.3 Secondary and unspecified malignant neoplasm of axilla and upper limb lymph nodes; Z17.0 Estrogen receptor positive status [ER+]
CPT/HCPCS: 36415; 80053; 80076; 83735; 85025; 96361; 96366; 96367; 96375; 96413; 96417; J1453; J2469; J9171

== ENCOUNTER 2018-08-29 05:40 | Day surgery (SDC) | payer OTHER ==
[2018-08-29] MEDS ORDERED: PEGFILGRASTIM 6 MG/0.6 ML DISP.SYRIN SQ ONE (09:00)
[2018-08-29 14:46] VITALS: BP 111/61; PULSE 68; TEMP 97.6
== END 2018-08-29 12:00 | disposition home or self-care (01) ==
LOC: JONCCHEMO 05:40 → J7W 11:36 → JONCCHEMO 12:00
PROVIDERS: ATTEND Internal Medicine Hematology & Oncology
PROC: 3E013GC Introduction of Other Therapeutic Substance into Subcutaneous Tissue, Percutaneous Approach (ICD-10-PCS; principal; 2018-08-29)
DX: C50.411 Malignant neoplasm of upper-outer quadrant of right female breast (principal); C77.3 Secondary and unspecified malignant neoplasm of axilla and upper limb lymph nodes; Z17.0 Estrogen receptor positive status [ER+]; Z76.89 Persons encountering health services in other specified circumstances
CPT/HCPCS: 96372; J2505

== ENCOUNTER 2018-09-17 07:17 | Day surgery (SDC) | payer OTHER ==
[2018-09-17] MEDS ORDERED: ACETAMINOPHEN 325 MG TABLET (FP) PO ONE (10:00)
[2018-09-17] MEDS ORDERED: DEXAMETHASONE SODIUM PHOSPHATE 10 MG, DIPHENHYDRAMINE 25 MG in SODIUM CHLORIDE 100 ML IVPB ONE (10:00)
[2018-09-17] MEDS ORDERED: PALONOSETRON HCL 0.25 MG/5 ML VIAL IVPUSH ONE (10:00)
[2018-09-17] MEDS ORDERED: FOSAPREPITANT DIMEGLUMINE 150 MG in SODIUM CHLORIDE 150 ML IVPB ONE (10:00)
[2018-09-17 10:03] LABS: BASO % 0.1 % (0-2.0); HEMATOCRIT 32.1 % (32.4-45.2); HEMOGLOBIN 11.2 GM/dL (10.7-15.3); LYMPH % 14.3 % (8-40); MCH 34.6 pg (25.7-33.7); MCHC 34.8 g/dl (32.0-36.0); MEAN CELL VOLUME 99.5 fl (80-96); NEUT % 77.6 % (42.8-82.8); PLATELET COUNT 169 K/MM3 (134-434); RBC 3.23 M/mm3 (3.60-5.2); RDW 16.6 % (11.6-15.6); WHITE BLOOD COUNT 5.1 K/mm3 (4.0-10.0)
[2018-09-17] MEDS ORDERED: SODIUM CHLORIDE IV ONE (10:30)
[2018-09-17] MEDS ORDERED: DOCETAXEL IV ONE (10:30)
[2018-09-17 10:47] LABS: ALBUMIN 4.2 g/dl (3.4-5.0); ALK PHOS 104 U/L (45-117); ANION GAP 6 MMOL/L (8-16); BILIRUBIN,DIRECT 0.2 mg/dL (0.0-0.2); BILIRUBIN,TOTAL 0.5 mg/dL (0.2-1); BLOOD UREA NITROGEN 14 mg/dL (7-18); CALCIUM 9.3 mg/dL (8.5-10.1); CHLORIDE 105 mmol/L (98-107); CO2 26 mmol/L (21-32); CREATININE 0.6 mg/dL (0.55-1.3); GLUCOSE,RANDOM 107 mg/dL (74-106); MAGNESIUM 2.3 mg/dL (1.8-2.4); POTASSIUM 4.3 mmol/L (3.5-5.1); SGOT/AST 17 U/L (15-37); SGPT/ALT 34 U/L (13-61); SODIUM 137 mmol/L (136-145); TOT PROT 7.7 g/dl (6.4-8.2)
[2018-09-17] MEDS ORDERED: SODIUM CHLORIDE IVPB ONE (11:30)
[2018-09-17] MEDS ORDERED: CARBOPLATIN IVPB ONE (11:30)
[2018-09-17 14:59] VITALS: TEMP 98.2
[2018-09-17] MEDS ORDERED: PORTA CATH FLUSH 10 ML IVPUSH ONE (14:59)
[2018-09-17 15:00] VITALS: BP 114/68; PULSE 77
== END 2018-09-17 14:30 | disposition home or self-care (01) ==
LOC: JONCCHEMO 07:17 → J7W 10:36 → JONCCHEMO 14:30
PROVIDERS: ATTEND Internal Medicine Hematology & Oncology
PROC: 3E04305 Introduction of Other Antineoplastic into Central Vein, Percutaneous Approach (ICD-10-PCS; principal; 2018-09-17)
PROC: 3E043GC Introduction of Other Therapeutic Substance into Central Vein, Percutaneous Approach (ICD-10-PCS; 2018-09-17)
DX: Z51.11 Encounter for antineoplastic chemotherapy (principal); C50.411 Malignant neoplasm of upper-outer quadrant of right female breast; C77.3 Secondary and unspecified malignant neoplasm of axilla and upper limb lymph nodes; Z17.0 Estrogen receptor positive status [ER+]
CPT/HCPCS: 36415; 80053; 80076; 83735; 85025; 96367; 96375; 96413; 96417; J1453; J2469; J9171

== ENCOUNTER 2018-09-18 06:13 | Day surgery (SDC) | payer OTHER ==
[2018-09-18] MEDS ORDERED: PEGFILGRASTIM 6 MG/0.6 ML DISP.SYRIN SQ ONE (10:00)
[2018-09-18 16:15] VITALS: BP 115/69; PULSE 83; TEMP 97.7
== END 2018-09-18 12:15 | disposition home or self-care (01) ==
LOC: JONCCHEMO 06:13 → J7W 11:48 → JONCCHEMO 12:15
PROVIDERS: ATTEND Internal Medicine Hematology & Oncology
PROC: 3E013GC Introduction of Other Therapeutic Substance into Subcutaneous Tissue, Percutaneous Approach (ICD-10-PCS; principal; 2018-09-18)
DX: Z76.89 Persons encountering health services in other specified circumstances (principal); C50.411 Malignant neoplasm of upper-outer quadrant of right female breast; Z17.0 Estrogen receptor positive status [ER+]
CPT/HCPCS: 96372; J2505

== ENCOUNTER 2018-10-08 12:44 | Day surgery (SDC) | payer OTHER ==
[2018-10-08 11:47] LABS: BASO % 0.2 % (0-2.0); HEMATOCRIT 33.1 % (32.4-45.2); HEMOGLOBIN 11.2 GM/dL (10.7-15.3); LYMPH % 9.8 % (8-40); MCH 34.5 pg (25.7-33.7); MCHC 33.8 g/dl (32.0-36.0); MEAN CELL VOLUME 102.1 fl (80-96); MEAN PLT VOLUME 8.1 fl (7.5-11.1); MONO % 2.5 % (3.8-10.2); NEUT % 87.5 % (42.8-82.8); PLATELET COUNT 159 K/MM3 (134-434); RBC 3.25 M/mm3 (3.60-5.2); RDW 15.2 % (11.6-15.6); WHITE BLOOD COUNT 6.3 K/mm3 (4.0-10.0)
[2018-10-08 12:14] LABS: ALBUMIN 3.8 g/dl (3.4-5.0); BILIRUBIN,DIRECT 0.1 mg/dL (0.0-0.2); BILIRUBIN,TOTAL 0.4 mg/dL (0.2-1); MAGNESIUM 1.9 mg/dL (1.8-2.4); TOT PROT 7.6 g/dl (6.4-8.2)
[2018-10-08 12:16] LABS: ALBUMIN 3.8 g/dl (3.4-5.0); ALK PHOS 112 U/L (45-117); ANION GAP 7 MMOL/L (8-16); BILIRUBIN,TOTAL 0.5 mg/dL (0.2-1); BLOOD UREA NITROGEN 17 mg/dL (7-18); CHLORIDE 105 mmol/L (98-107); CO2 24 mmol/L (21-32); CREATININE 0.7 mg/dL (0.55-1.3); GLUCOSE,RANDOM 155 mg/dL (74-106); POTASSIUM 4.4 mmol/L (3.5-5.1); SGOT/AST 18 U/L (15-37); SGPT/ALT 40 U/L (13-61); SODIUM 137 mmol/L (136-145); TOT PROT 7.4 g/dl (6.4-8.2)
[~2018-10-08 12:44] MED LIST changes: +ACETAMINOPHEN 325 MG TABLET (FP) PO ONE; +DEXAMETHASONE INJECTION 10 MG, DIPHENHYDRAMINE 25 MG in SODIUM CHLORIDE 100 ML IVPB ONE; +FOSAPREPITANT DIMEGLUMINE 150 MG in SODIUM CHLORIDE 145 ML IVPB ONE; +PALONOSETRON HCL 0.25 MG/5 ML VIAL IVPUSH ONE; -PEGFILGRASTIM 6 MG/0.6 ML DISP.SYRIN SQ ONE; +SODIUM CHLORIDE 500 ML IV STA
[2018-10-08] MEDS ORDERED: DOCETAXEL IV ONE (13:00)
[2018-10-08] MEDS ORDERED: SODIUM CHLORIDE IV ONE (13:00)
[2018-10-08] MEDS ORDERED: CARBOPLATIN IVPB ONE (14:00)
[2018-10-08] MEDS ORDERED: SODIUM CHLORIDE IVPB ONE (14:00)
[2018-10-08 18:07] VITALS: BP 117/66; PULSE 83; TEMP 98.5
[2018-10-08] MEDS ORDERED: PORTA CATH FLUSH 10 ML IVPUSH ONE (18:07)
== END 2018-10-08 18:25 | disposition home or self-care (01) ==
LOC: J7W 12:44 → JONCCHEMO 12:44
PROVIDERS: ATTEND Internal Medicine Hematology & Oncology
DX: Z51.11 Encounter for antineoplastic chemotherapy (principal); C50.411 Malignant neoplasm of upper-outer quadrant of right female breast; Z17.0 Estrogen receptor positive status [ER+]
CPT/HCPCS: 36415; 80053; 80076; 83735; 85025; 96361; 96367; 96375; 96413; 96417; J1100; J1453; J2469; J9171

== ENCOUNTER 2018-10-09 07:07 | Day surgery (SDC) | payer OTHER ==
[2018-10-09] MEDS ORDERED: PEGFILGRASTIM 6 MG/0.6 ML DISP.SYRIN SQ ONE (14:10)
[2018-10-09 15:55] VITALS: BP 109/60; PULSE 86; TEMP 98
== END 2018-10-09 13:35 | disposition home or self-care (01) ==
LOC: JONCCHEMO 07:07 → J7W 13:00 → JONCCHEMO 13:35
PROVIDERS: ATTEND Internal Medicine Hematology & Oncology
PROC: 3E013GC Introduction of Other Therapeutic Substance into Subcutaneous Tissue, Percutaneous Approach (ICD-10-PCS; principal; 2018-10-09)
DX: C50.411 Malignant neoplasm of upper-outer quadrant of right female breast (principal); Z17.0 Estrogen receptor positive status [ER+]; Z76.89 Persons encountering health services in other specified circumstances
CPT/HCPCS: 96372; J2505

== ENCOUNTER 2018-10-29 07:05 | Day surgery (SDC) | payer OTHER ==
[2018-10-29] MEDS ORDERED: PALONOSETRON HCL 0.25 MG/5 ML VIAL IVPUSH ONE (08:00)
[2018-10-29] MEDS ORDERED: ACETAMINOPHEN 325 MG TABLET (FP) PO ONE (08:00)
[2018-10-29] MEDS ORDERED: FOSAPREPITANT DIMEGLUMINE 150 MG in SODIUM CHLORIDE 145 ML IVPB ONE (08:00)
[2018-10-29] MEDS ORDERED: DEXAMETHASONE SODIUM PHOSPHATE 10 MG, DIPHENHYDRAMINE 25 MG in SODIUM CHLORIDE 100 ML IVPB ONE (08:00)
[2018-10-29] MEDS ORDERED: SODIUM CHLORIDE IV ONE (08:30)
[2018-10-29] MEDS ORDERED: DOCETAXEL IV ONE (08:30)
[2018-10-29] MEDS ORDERED: CARBOPLATIN IVPB ONE (09:30)
[2018-10-29] MEDS ORDERED: SODIUM CHLORIDE IVPB ONE (09:30)
[2018-10-29 10:37] LABS: BASO % 0.1 % (0-2.0); HEMATOCRIT 33.9 % (32.4-45.2); HEMOGLOBIN 11.4 GM/dL (10.7-15.3); LYMPH % 11.2 % (8-40); MCH 34.2 pg (25.7-33.7); MCHC 33.5 g/dl (32.0-36.0); MEAN CELL VOLUME 102.1 fl (80-96); MONO % 4.6 % (3.8-10.2); NEUT % 84.1 % (42.8-82.8); PLATELET COUNT 183 K/MM3 (134-434); RBC 3.32 M/mm3 (3.60-5.2); RDW 14.2 % (11.6-15.6)
[2018-10-29 11:03] LABS: ALK PHOS 120 U/L (45-117); ANION GAP 7 MMOL/L (8-16); BILIRUBIN,DIRECT 0.2 mg/dL (0.0-0.2); BILIRUBIN,TOTAL 0.5 mg/dL (0.2-1); BLOOD UREA NITROGEN 19 mg/dL (7-18); CALCIUM 10.1 mg/dL (8.5-10.1); CHLORIDE 105 mmol/L (98-107); CO2 27 mmol/L (21-32); CREATININE 0.6 mg/dL (0.55-1.3); GLUCOSE,RANDOM 133 mg/dL (74-106); MAGNESIUM 1.8 mg/dL (1.8-2.4); POTASSIUM 4.7 mmol/L (3.5-5.1); SGOT/AST 14 U/L (15-37); SGPT/ALT 35 U/L (13-61); SODIUM 138 mmol/L (136-145); TOT PROT 7.6 g/dl (6.4-8.2)
[2018-10-29] MEDS ORDERED: SODIUM CHLORIDE 500 ML IV STA (11:06)
[2018-10-29 15:54] VITALS: TEMP 97.8
[2018-10-29] MEDS ORDERED: PORTA CATH FLUSH 10 ML IVPUSH ONE (15:54)
[2018-10-29 16:37] VITALS: BP 117/52; PULSE 87
== END 2018-10-29 16:41 | disposition home or self-care (01) ==
LOC: JONCCHEMO 07:05 → J7W 11:24 → JONCCHEMO 16:41
PROVIDERS: ATTEND Internal Medicine Hematology & Oncology
DX: Z51.11 Encounter for antineoplastic chemotherapy (principal); Z17.0 Estrogen receptor positive status [ER+]
CPT/HCPCS: 36415; 80048; 80076; 83735; 85025; 96361; 96367; 96375; 96413; 96417; J1453; J2469; J9171

== ENCOUNTER 2018-10-30 07:16 | Day surgery (SDC) | payer OTHER ==
[2018-10-30] MEDS ORDERED: PEGFILGRASTIM 6 MG/0.6 ML DISP.SYRIN SQ ONE (09:00)
[2018-10-30 17:58] VITALS: BP 110/63; PULSE 67; TEMP 97.8
== END 2018-10-30 12:37 | disposition home or self-care (01) ==
LOC: JONCCHEMO 07:16 → J7W 11:52 → JONCCHEMO 12:37
PROVIDERS: ATTEND Internal Medicine Hematology & Oncology
PROC: 3E013GC Introduction of Other Therapeutic Substance into Subcutaneous Tissue, Percutaneous Approach (ICD-10-PCS; principal; 2018-10-30)
DX: Z51.11 Encounter for antineoplastic chemotherapy (principal); C50.411 Malignant neoplasm of upper-outer quadrant of right female breast; Z17.0 Estrogen receptor positive status [ER+]; Z76.89 Persons encountering health services in other specified circumstances
CPT/HCPCS: 96372; J2505

== ENCOUNTER 2018-11-12 11:14 | Inpatient (IN) | payer OTHER | END 2018-11-19 17:59 | disposition home or self-care (01) | LOC: J7W 11-15 15:54 → JER 11:14 → JERBED 14:55 → J7W 17:31 ==

== ENCOUNTER → 2018-12-05 | Day surgery (SDC) | payer OTHER ==
[2018-12-05 10:01] LABS: BASO % 0.7 % (0-2.0); EOS % 2.2 % (0-4.5); HEMATOCRIT 36.2 % (32.4-45.2); LYMPH % 31.1 % (8-40); MCH 34.3 pg (25.7-33.7); MCHC 33.2 g/dl (32.0-36.0); MEAN CELL VOLUME 103.4 fl (80-96); MEAN PLT VOLUME 7.9 fl (7.5-11.1); MONO % 13.3 % (3.8-10.2); NEUT % 52.7 % (42.8-82.8); PLATELET COUNT 162 K/MM3 (134-434); RBC 3.51 M/mm3 (3.60-5.2); RDW 13.2 % (11.6-15.6)
== END | disposition home or self-care (01) ==
LOC: JONCCHEMO 09:17
PROVIDERS: ATTEND Internal Medicine Hematology & Oncology
DX: Z53.8 Procedure and treatment not carried out for other reasons (principal)
CPT/HCPCS: 36415; 85025

== ENCOUNTER 2018-12-09 11:17 | Inpatient (IN) | payer OTHER ==
--- NOTE | 2018-12-04 09:35 | HP ---
Admitting History and Physical - Primary Care Physician PCP: Maria Alejandra Robertson - Admission Chief Complaint: Right breast cancer ,H/O left breast cancer History of Present Illness: 53 year old postmenapausal female S/P left mastectomy for stage 1 breast cancer with chemotherapy 2002 and saline implant reconstruction 2007. Now with right breast cancer and axillary masses which were bxed and showed poorly differentiated Invasive ductal carcinoma ER5%HER2- Node +. S/P neoadjuvant chemotherapy. CTscan of chest and abdomen were negative. She is BRCA 1 positve. History Source: Patient Limitations to Obtaining History: No Limitations - Past Medical History Heme/Onc: Yes: Cancer (Breast), Current Chemotherapy Additional Past Medical History: Low WBC but improved and was not given Nuprogen by Dr Finch on Eliquis for Port DVT which will be DC 3 days prior to surhery per dr finch - Past Surgical History Past Surgical History: Yes: , Mastectomy (Left at age 37 chemotherapy mastectomy saline implant triple neg ) - Smoking History Smoking history: Never smoked Have you smoked in the past 12 months: No - Alcohol/Substance Use Hx Alcohol Use: Yes (socially) - Social History ADL: Independent History of Recent Travel: No Home Medications - Allergies Allergies/Adverse Reactions: Allergies Allergy/AdvReac Type Severity Reaction Status Date / Time piperacillin [From Zosyn] Allergy Mild Rash Verified 12/04/18 11:50 tazobactam [From Zosyn] Allergy Mild Rash Verified 12/04/18 11:50 - Home Medications Home Medications: Ambulatory Orders Apixaban [Eliquis -] 5 mg PO BID #60 tablet 11/19/18 Family Disease History - Family Disease History Family Disease History: CA: Father (lung ca 68 ) Physical Examination Constitutional: Yes: Well Nourished Breast(s): Yes: Other (good clinical response to neoadjuvant chemotherapy right breast left breast no recurrence incision healed from mastectomy) Problem List - Problems (1) Breast cancer, right breast Code(s): C50.911 - MALIGNANT NEOPLASM OF UNSP SITE OF RIGHT FEMALE BREAST Qualifiers: Breast location: unspecified site of breast Estrogen receptor status: negative Patient sex: female Qualified Code(s): C50.911 - Malignant neoplasm of unspecified site of right female breast; Z17.1 - Estrogen receptor negative status [ER-] Assessment/Plan Right modified radical mastectomy with reconstruction bilaterally
[2018-12-09 12:53] VITALS: BMI 30.2
[2018-12-09] MEDS ORDERED: PROPOFOL 20 ML ONE (14:06)
[2018-12-09] MEDS ORDERED: KETOROLAC TROMETHAMINE 30 MG/1 ML VIAL ONE (14:07)
[2018-12-09] MEDS ORDERED: LIDOCAINE HCL/PF 2% SDV 5ML VIAL ONE (14:07)
[2018-12-09] MEDS ORDERED: ONDANSETRON 4 MG/2 ML VIAL ONE (14:07)
[2018-12-09] MEDS ORDERED: DEXAMETHASONE SOD PHOSPHATE 4 MG/1 ML VIAL ONE (14:07)
[2018-12-09] MEDS ORDERED: ceFAZolin SODIUM 1 GM VIAL ONE ×2 (14:28→15:05)
[2018-12-09] MEDS ORDERED: GENTAMICIN SO4 80 MG/2 ML VIAL ONE (14:28)
[2018-12-09] MEDS ORDERED: MIDAZOLAM HCL 2 MG/2 ML SINGLE DOSE VIAL ONE (14:51)
[2018-12-09] MEDS ORDERED: ROCURONIUM BROMIDE 50 MG/5 ML VIAL ONE ×2 (14:56→15:26)
[2018-12-09] MEDS ORDERED: ePHEDrine SULFATE 50 MG/1 ML AMPULE ONE (15:21)
[2018-12-09] MEDS ORDERED: ZOLPIDEM TARTRATE 5 MG TABLET PO PRN (16:56)
[2018-12-09] MEDS ORDERED: ONDANSETRON 4 MG/2 ML VIAL IVPUSH PRN ×2 (16:56→17:58)
[2018-12-09] MEDS ORDERED: BUPIVACAINE HCL/PF 2.5 MG/ML - 30 ML VIAL IJ ONE (17:16)
[2018-12-09] MEDS ORDERED: BUPIVACAINE HCL/PF 0.25% (2.5MG/ML) 10 ML VIAL IJ ONE (17:18)
[2018-12-09] MEDS ORDERED: GLYCOPYRROLATE 0.2 MG/1 ML VIAL ONE (17:38)
[2018-12-09] MEDS ORDERED: NEOSTIGMINE METHYLSULFATE 0.5 MG/ML - 10 ML MDV ONE (17:39)
[2018-12-09] MEDS ORDERED: PROMETHAZINE HCL 25 MG/1 ML VIAL IVPUSH PRN (17:58)
[2018-12-09] MEDS ORDERED: LACTATED RINGERS SOLUTION 1,000 ML IV SCH (18:00)
[2018-12-09] MEDS: DEXTROSE 5%-0.45% SALINE 1,000 ML IV SCH (19:00)
[2018-12-09] MEDS: ACETAMINOPHEN 325 MG TABLET (FP) PO PRN (21:09)
[2018-12-09] MEDS: oxyCODONE HCL 5 MG TABLET PO PRN (21:09)
[2018-12-09] MEDS: CEFAZOLIN 1 GM/D5W 1 GM/50 ML BAG IVPB SCH (21:10)
[2018-12-09] MEDS ORDERED: LACTATED RINGERS SOLUTION 500 ML IV ONE (23:45)
--- NOTE | 2018-12-10 02:06 | OP ---
DATE OF OPERATION: 12/09/2018 PREOPERATIVE DIAGNOSIS: Locally advanced right breast cancer, status post neoadjuvant chemotherapy. POSTOPERATIVE DIAGNOSIS: Locally advanced right breast cancer, status post neoadjuvant chemotherapy. PROCEDURE: Right modified radical mastectomy. ANESTHESIA: General, intubated. ATTENDING SURGEON: Juan Robertson MD BORING MACHINE OPERATOR HELPER: ERIKA Golden ESTIMATED BLOOD LOSS: 350 mL OPERATIVE REPORT: Patient was made aware of the risks and benefits of the procedure and consented. She was placed in the supine position after general anesthesia was induced. The patient was intubated. A horizontally-oriented elliptical incision was made around the nipple using electrocautery. Skin flaps were made superior to the clavicle, medial to the sternum, lateral to the latissimus dorsi, and inferior to the inframammary folds. Using electrocautery, the breast tissue was taken off of the pectoralis muscle, extending laterally to the lateral chest wall. The long thoracic nerve was identified and retracted medially along its length. Likewise the thoracodorsal trunk was identified and retracted laterally. Tissues between the two were bluntly and sharply dissected using medium-sized hemoclips and sharp dissection. The breast tissue was submitted with a short suture superior, long suture lateral. Additional nodes were taken off under the pectoralis minor muscle and submitted as high axillary nodes. Palpation of the surround area found no other suspicious nodes or nodules. The wound was copiously irrigated with normal saline. Hemostasis was maintained by electrocautery and hemoclips. The procedure was then turned over to Dr. Jerome Bailey who performed implant reconstruction. He will dictate that portion of his procedure separately. JUAN ROBERTSON M.D. [id number]
[2018-12-10] MEDS: CEFAZOLIN 1 GM/D5W 1 GM/50 ML BAG IVPB SCH ×4 (03:10→20:10)
[2018-12-10] MEDS: oxyCODONE HCL 5 MG TABLET PO PRN ×4 (03:27→20:10)
[2018-12-10] MEDS: ACETAMINOPHEN 325 MG TABLET (FP) PO PRN ×3 (03:28→20:10)
[2018-12-10] MEDS ORDERED: HEPARIN NA (PORCINE) 5,000 UNITS/ML 1ML VIAL SQ SCH (08:00)
--- NOTE | 2018-12-10 08:55 | PN ---
Progress Note, Physician Chief Complaint: s/p right MRM with reconstruction and left chest placement of tissue planning rn POD#1 History of Present Illness: Patient was seen at the bedside and reports mild discomfort in the right chest. She is tolerating po well without nausea. - Current Medication List Current Medications: Active Medications Acetaminophen (Tylenol -) 650 mg PO Q4H PRN PRN Reason: FEVER Last Admin: 12/10/18 03:28 Dose: 650 mg Enoxaparin Sodium (Lovenox -) 40 mg SQ DAILY ABEL Cefazolin Sodium (Ancef 1 Gm Premixed Ivpb -) 1 gm in 50 mls @ 100 mls/hr IVPB Q6H-IV ABEL Stop: 12/16/18 20:59 Last Admin: 12/10/18 03:10 Dose: 100 mls/hr Dextrose/Sodium Chloride (D5-1/2ns -) 1,000 mls @ 100 mls/hr IV ASDIR ABEL Last Admin: 12/09/18 19:00 Dose: 0 mls Ondansetron HCl (Zofran Injection) 4 mg IVPUSH Q6H PRN PRN Reason: NAUSEA AND/OR VOMITING Oxycodone HCl (Roxicodone -) 5 mg PO Q4H PRN PRN Reason: PAIN LEVEL 6-10 Last Admin: 12/10/18 03:27 Dose: 5 mg Zolpidem Tartrate (Ambien -) 5 mg PO HS PRN PRN Reason: Insomnia - Objective Vital Signs: Vital Signs Temperature 98.8 F 12/10/18 05:54 Pulse Rate 91 H 12/10/18 05:54 Respiratory Rate 20 12/10/18 05:54 Blood Pressure 92/47 L 12/10/18 05:54 O2 Sat by Pulse Oximetry (%) 98 12/10/18 08:24 Constitutional: Yes: Well Nourished, Calm Breast(s): Yes: Other (Bilateral chest incisions with steristrips intact. No active bleeding or other discharge noted. BISMARK x 2 with serosanginous discharge.) Labs: CBC, BMP 12/10/18 07:13 Problem List - Problems (1) Breast cancer, right breast Code(s): C50.911 - MALIGNANT NEOPLASM OF UNSP SITE OF RIGHT FEMALE BREAST Qualifiers: Breast location: unspecified site of breast Estrogen receptor status: negative Patient sex: female Qualified Code(s): C50.911 - Malignant neoplasm of unspecified site of right female breast; Z17.1 - Estrogen receptor negative status [ER-] Assessment/Plan Assessment: S/P Right MRM and bilateral reconstruction POD#1 Hypotension Plan: OOB today with assistance BISMARK teaching Continue IV axbx and pain meds as ordered IS 10 xs hourly Continue IV fluids Monitor vitals and CBC Dr. Finch ( oncology) to follow as well
[2018-12-10] MEDS: ENOXAPARIN NA (PORCINE) 40 MG/0.4 ML DISP.SYRIN SQ SCH (09:22)
[2018-12-10 10:54] LABS: HEMATOCRIT 27.1 % (32.4-45.2); HEMOGLOBIN 9.1 GM/dl (10.7-15.3); MCH 34.1 pg (25.7-33.7); MCHC 33.5 g/dl (32.0-36.0); MEAN CELL VOLUME 101.8 fl (80-96); MEAN PLT VOLUME 8.4 fl (7.5-11.1); PLATELET COUNT 145 K/MM3 (134-434); RBC 2.66 M/mm3 (3.60-5.2); RDW 12.6 % (11.6-15.6); WHITE BLOOD COUNT 11.8 K/mm3 (4.0-10.8)
[2018-12-10 11:00] LABS: ANISOCYTOSIS 1+; OVALOCYTE 1+
[2018-12-10 11:01] LABS: PLATELET ESTIMATE ADEQUATE
[2018-12-10] MEDS: DEXTROSE 5%-0.45% SALINE 1,000 ML IV SCH ×2 (16:10→18:34)
--- NOTE | 2018-12-10 20:03 | PN ---
Progress Note (short form) - Note Progress Note: POD 1 All tissues viable BISMARK's thin and functioning No infection VSS AF Ambulating, advancing on anticoagulation No evidence of bleed or collection Pain well controlled Plan for discharge on Saturday
[2018-12-11] MEDS: CEFAZOLIN 1 GM/D5W 1 GM/50 ML BAG IVPB SCH ×4 (03:30→22:10)
--- NOTE | 2018-12-11 07:32 | OP ---
DATE OF OPERATION: 12/09/2018 TITLE OF PROCEDURE: 1. Right-sided breast reconstruction using acellular dermal matrix and tissue fuel handler. 2. Left-sided periprosthetic capsulectomy with removal of intact breast prosthesis and placement with new tissue fuel handler. ATTENDING SURGEON: Jerome Bailey MD Procedure was performed in combination with a right-sided modified radical mastectomy performed by Dr. Maria Alejandra Luong and his team. DESCRIPTION OF PROCEDURE: The patient was seen in the holding area. She was preoperatively given subcutaneous heparin. She was given IV antibiotics preoperatively. She was marked in the holding area awake and aware of all incisions and resulting scars. Patient has an existing breast prosthesis in the left side with a reconstructed nipple. The plan is to replace this with a tissue fuel handler in order to enlarge the side and perform a new breast reconstruction using a tissue fuel handler and AlloDerm on the right side. Sequential compression stockings and EH hose were applied. The patient was brought to the operating room and placed in supine position. Position was carefully checked by surgical and anesthesia teams. She was prepped and draped in standard surgical fashion. Time-out was called. Patient, procedure, side and sites were verified. I simultaneously was working on the left side, while Dr. Luong and his team were performing a modified radical mastectomy on the right side. On the left side, an incision was made in the existing mastectomy scar. Dissection was carried down to the level of the periprosthetic capsule. A capsulotomy was performed. The implant was then removed. Internally, a partial capsulectomy was performed. Capsule was sent for biopsy. The borders of the pocket were enlarged in order to accommodate a slightly wider, newer, tissue fuel handler. After hemostasis was meticulously achieved, pocket was irrigated with standard triple antibiotic solution. A tissue fuel handler was then brought onto the field. It was an Allergan AgFlowe style 133 SX-14 fuel handler. It was evacuated of all air, placed into the pocket, secured using the suture tabs, and then inflated in position to 450 mL of saline using a closed filling system. The pocket was then closed with a running locking 3-0 Monocryl suture. Skin was then prepared for closure with a series of interrupted buried deep dermal 3-0 Monocryl suture followed by a running subcuticular 3-0 Monocryl suture. At completion of the mastectomy, hemostasis was meticulously achieved on the patients right side. Copious irrigation using triple antibiotic solution was performed. The reconstruction was then performed by marking the inframammary fold, which will be slightly higher than the original inframammary fold in order to by symmetric with the contralateral reconstructed breast. Once this was marked, the inferior medial attachments of the pectoralis major muscle were divided. Along the marking, an AlloDerm was prepared with triple antibiotic solution. It was oriented properly and secured to the medial inframammary and lateral mammary folds using a running 2-0 PDS suture. A tissue fuel handler was then brought into the field, triple antibiotic solution, evacuated of all air. It was an Zignals style 133 SX tissue fuel handler secured into the pocket using suture tabs. Its position made to be a mirror image of the contralateral side. It was inflated to a total of 150 mL of normal saline, which was the maximum fill before any tension was noted on the mastectomy flaps. At this point, the superior free margin of the AlloDerm was sewn to the inferior free margin of the pectoralis major muscle with a running 2-0 PDS suture. A size 10 round Basilio drain was brought in through lateral stab wound incisions, secured with 3-0 silk drain sutures. The subcutaneous fat was closed with a running 3-0 Monocryl suture. Skin was then closed after trimming the borders of the mastectomy wound until healthy bright red bleeding was noted. Closure was then performed with a running locking 3-0 Monocryl deep dermal suture followed by running subcuticular 3-0 Monocryl suture. Wounds were dressed with Steri-Strips. The drain was placed to bulb suction. A surgical bra was applied. Patient was awoken from anesthesia having tolerated the procedure well, transferred to recovery without complications. Darlene [id number]
[2018-12-11] MEDS ORDERED: DOCUSATE SODIUM 100 MG CAPSULE (FP) PO PRN (08:49)
--- NOTE | 2018-12-11 09:00 | PN ---
Progress Note, Physician Chief Complaint: Right breast cancer S/P right modified radical mastectomy with kids activities coach replaced bilaterally POD#2 History of Present Illness: patient is eating ,pain controlled with current medication, ready for discharge tomorrow per dr brown VSS,C/O constipation - Current Medication List Current Medications: Active Medications Acetaminophen (Tylenol -) 650 mg PO Q4H PRN PRN Reason: FEVER Last Admin: 12/10/18 20:10 Dose: 650 mg Docusate Sodium (Colace -) 100 mg PO BID PRN PRN Reason: CONSTIPATION Enoxaparin Sodium (Lovenox -) 40 mg SQ DAILY ABEL Last Admin: 12/10/18 09:22 Dose: 40 mg Cefazolin Sodium (Ancef 1 Gm Premixed Ivpb -) 1 gm in 50 mls @ 100 mls/hr IVPB Q6H-IV ABEL Stop: 12/16/18 20:59 Last Admin: 12/11/18 08:02 Dose: 100 mls/hr Dextrose/Sodium Chloride (D5-1/2ns -) 1,000 mls @ 100 mls/hr IV ASDIR ABEL Last Admin: 12/10/18 18:34 Dose: 100 mls/hr Ondansetron HCl (Zofran Injection) 4 mg IVPUSH Q6H PRN PRN Reason: NAUSEA AND/OR VOMITING Oxycodone HCl (Roxicodone -) 5 mg PO Q4H PRN PRN Reason: PAIN LEVEL 6-10 Last Admin: 12/10/18 20:10 Dose: 5 mg Zolpidem Tartrate (Ambien -) 5 mg PO HS PRN PRN Reason: Insomnia - Objective Vital Signs: Vital Signs Temperature 99.6 F 12/11/18 08:39 Pulse Rate 93 H 12/11/18 08:39 Respiratory Rate 18 12/11/18 08:39 Blood Pressure 108/48 L 12/11/18 08:39 O2 Sat by Pulse Oximetry (%) 100 12/11/18 08:39 Constitutional: Yes: No Distress Breast(s): Yes: Other (Bilateral flaps viable minmal echymosis incision intact steristrips in place atiya drains functioing well no signs of infection or hematoma ) Labs: CBC, BMP 12/10/18 07:13 Problem List - Problems (1) Breast cancer, right breast Code(s): C50.911 - MALIGNANT NEOPLASM OF UNSP SITE OF RIGHT FEMALE BREAST Qualifiers: Breast location: unspecified site of breast Estrogen receptor status: negative Patient sex: female Qualified Code(s): C50.911 - Malignant neoplasm of unspecified site of right female breast; Z17.1 - Estrogen receptor negative status [ER-] Assessment/Plan continue IV antibiotics Colace for constipation Spirometry SCD while in bed lovenox 40mg today discharge tomorrow per dr brown She will go home on eliquis bid per Dr Finch [facility] social group worker
[2018-12-11] MEDS: ENOXAPARIN NA (PORCINE) 40 MG/0.4 ML DISP.SYRIN SQ SCH (09:31)
[2018-12-11] MEDS: oxyCODONE HCL 5 MG TABLET PO PRN (09:31)
[2018-12-11 10:57] LABS: BASO % 0.2 % (0-2.0); EOS % 2.7 % (0-4.5); HEMATOCRIT 29.3 % (32.4-45.2); HEMOGLOBIN 9.6 GM/dl (10.7-15.3); LYMPH % 22.9 % (8-40); MCH 33.8 pg (25.7-33.7); MCHC 32.6 g/dl (32.0-36.0); MEAN CELL VOLUME 103.6 fl (80-96); MEAN PLT VOLUME 7.6 fl (7.5-11.1); MONO % 14.1 % (3.8-10.2); NEUT % 60.1 % (42.8-82.8); PLATELET COUNT 162 K/MM3 (134-434); RBC 2.83 M/mm3 (3.60-5.2); RDW 12.6 % (11.6-15.6)
[2018-12-11] MEDS: ACETAMINOPHEN 325 MG TABLET (FP) PO PRN (15:34)
--- NOTE | 2018-12-11 19:08 | PN ---
Progress Note (short form) - Note Progress Note: Afebrile, healing well, pain much improved, no infection. Discharge for morning written. Lovenox per Dr. Fnich. joseph Hylton, follow up with Loe one week.
[2018-12-11] MEDS ORDERED: SENNOSIDES/DOCUSATE COMBO (SENNA PLUS) TABLET (UD) PO SCH (22:00)
[2018-12-12] MEDS: CEFAZOLIN 1 GM/D5W 1 GM/50 ML BAG IVPB SCH ×2 (03:21→10:04)
[2018-12-12] MEDS: ACETAMINOPHEN 325 MG TABLET (FP) PO PRN (05:48)
[2018-12-12] MEDS: oxyCODONE HCL 5 MG TABLET PO PRN (05:49)
[2018-12-12 06:27] VITALS: BP 100/56; PULSE 88; TEMP 99.1
--- NOTE | 2018-12-12 09:48 | PN ---
Progress Note, Physician Chief Complaint: S/P right MRM with bilateral reconstruction POD #3 History of Present Illness: Patient is doing well this am without complaints. She is tolerating po and has good pain control. - Current Medication List Current Medications: Active Medications Acetaminophen (Tylenol -) 650 mg PO Q4H PRN PRN Reason: FEVER Last Admin: 12/12/18 05:48 Dose: 650 mg Apixaban (Eliquis -) 5 mg PO BID ABEL Docusate Sodium (Colace -) 100 mg PO BID PRN PRN Reason: CONSTIPATION Last Admin: 12/11/18 09:31 Dose: 100 mg Cefazolin Sodium (Ancef 1 Gm Premixed Ivpb -) 1 gm in 50 mls @ 100 mls/hr IVPB Q6H-IV ABEL Stop: 12/16/18 20:59 Last Admin: 12/12/18 03:21 Dose: 100 mls/hr Dextrose/Sodium Chloride (D5-1/2ns -) 1,000 mls @ 100 mls/hr IV ASDIR ABEL Last Admin: 12/10/18 18:34 Dose: 100 mls/hr Ondansetron HCl (Zofran Injection) 4 mg IVPUSH Q6H PRN PRN Reason: NAUSEA AND/OR VOMITING Oxycodone HCl (Roxicodone -) 5 mg PO Q4H PRN PRN Reason: PAIN LEVEL 6-10 Last Admin: 12/12/18 05:49 Dose: 5 mg Senna/Docusate Sodium (Pericolace -) 2 tablet PO HS ABEL Stop: 12/12/18 19:05 Last Admin: 12/11/18 22:10 Dose: 2 tablet Zolpidem Tartrate (Ambien -) 5 mg PO HS PRN PRN Reason: Insomnia - Objective Vital Signs: Vital Signs Temperature 99.1 F 12/12/18 05:00 Pulse Rate 88 12/12/18 05:00 Respiratory Rate 18 12/12/18 05:00 Blood Pressure 100/56 L 12/12/18 05:00 O2 Sat by Pulse Oximetry (%) 97 12/12/18 08:26 Constitutional: Yes: Well Nourished, Calm Breast(s): Yes: Other (Bilateral incisions are clean with steristrips intact. BISMARK x 2 with serosanginous discharge noted.) Labs: CBC, BMP 12/11/18 10:24 Problem List - Problems (1) Breast cancer, right breast Code(s): C50.911 - MALIGNANT NEOPLASM OF UNSP SITE OF RIGHT FEMALE BREAST Qualifiers: Breast location: unspecified site of breast Estrogen receptor status: negative Patient sex: female Qualified Code(s): C50.911 - Malignant neoplasm of unspecified site of right female breast; Z17.1 - Estrogen receptor negative status [ER-] Assessment/Plan Plan: Repeat CBC this am as per Dr. Finch Lovenox discontinued and Eliquis restarted If Neutrophils are less then 1000, Neupogen will be administered as per Dr. Finch Plan for discharge this am if labs are wnl Followup with Dr. Robertson, Dr. Bailey and Dr. Finch next week
[2018-12-12] MEDS ORDERED: APIXABAN 5 MG TABLET PO SCH (10:00)
[2018-12-12 10:18] LABS: BASO % 0.4 % (0-2.0); EOS % 3.1 % (0-4.5); HEMATOCRIT 30.3 % (32.4-45.2); HEMOGLOBIN 9.9 GM/dl (10.7-15.3); LYMPH % 29.1 % (8-40); MCH 33.5 pg (25.7-33.7); MCHC 32.7 g/dl (32.0-36.0); MEAN CELL VOLUME 102.2 fl (80-96); MEAN PLT VOLUME 7.3 fl (7.5-11.1); MONO % 19.1 % (3.8-10.2); NEUT % 48.3 % (42.8-82.8); PLATELET COUNT 173 K/MM3 (134-434); RBC 2.97 M/mm3 (3.60-5.2); RDW 12.2 % (11.6-15.6); WHITE BLOOD COUNT 4.6 K/mm3 (4.0-10.8)
--- NOTE | 2018-12-12 17:32 | PATH ---
Surgical Pathology Report Patient Name: GENE ARIAS Med. Rec. #: [id number] /Age/Gender: 1965 (Age: 53) / F Account: [id number] Location: [facility] MED-SURG Taken: 12/09/2018 Received: 12/09/2018 Reported: 12/12/2018 Physicians: Maria Alejandra Robertson M.D. Specimen(s) Received A: LEFT BREAST CAPSULE BIOPSY B: RIGHT BREAST IMPLANT C: LEFT BREAST IMPLANT D: RIGHT MODIFIED RADICAL MASTECTOMY E: RIGHT HIGH AXILLARY NODES Clinical History Mammographic findings, ultrasound findings: Highly suspicious/malignant Status post neoadjuvant chemotherapy Final Diagnosis A. CAPSULE, LEFT BREAST, BIOPSY: FIBROUS CAPSULE SHOWING FEW FOCI OF FOREIGN BODY GIANT CELL REACTION. FIBROADIPOSE TISSUE AND SKELETAL MUSCLE WITH NO PATHOLOGIC FINDINGS. B. IMPLANT, RIGHT BREAST, REMOVAL: IMPLANT, DESCRIBED (GROSS EXAMINATION ONLY). C. IMPLANT, LEFT BREAST, REMOVAL: IMPLANT, DESCRIBED (GROSS EXAMINATION ONLY). D. BREAST, RIGHT, MODIFIED RADICAL MASTECTOMY: NO RESIDUAL INVASIVE CARCINOMA IS IDENTIFIED. 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 DENSE HYALINIZING FIBROSIS WITH PROMINENT HISTIOCYTIC REACTION, SPANNING 3.2 CM IN GREATEST DIMENSION (GROSS MEASUREMENT), CONSISTENT WITH TREATED TUMOR BED TISSUE. NO LYMPHOVASCULAR INVASION IS IDENTIFIED. NIPPLE AND SKIN WITH NO PATHOLOGIC FINDINGS. FIBROUS CAPSULE AND SKELETAL MUSCLE IS PRESENT AT THE DEEP ASPECT. REMAINING BREAST TISSUE SHOWS MICROCYSTS, COLUMNAR CELL CHANGE, SCLEROSING ADENOSIS AND ASSOCIATED CALCIFICATIONS. FIFTEEN AXILLARY LYMPH NODES, NEGATIVE FOR METASTATIC CARCINOMA (0/15); THREE LYMPH NODES SHOW PROMINENT FOCI OF HISTIOCYTIC REACTION AND FIBROUS SCAR, CONSISTENT WITH TREATED METASTATIC TUMOR. PATHOLOGIC STAGE (ypTNM): ypTis (DCIS) ypN0. Note: Cytokeratin (AE1/3) immunostain (performed on block D6 at [facility]) is negative in the foci of histiocytic reaction. This finding supports the diagnosis. See also prior right breast and right axillary lymph node core biopsy report ([id number]; 06/13/18). Results of ER and UT studies performed on block D10 (DCIS) at [facility] are as follows: ER (clone [id number] mouse monoclonal antibody by [employer]): 0 % nuclear staining (Negative). UT (clone16 mouse monoclonal antibody by [employer]): 0 % nuclear staining (Negative). E. HIGH AXILLARY NODES, RIGHT, EXCISION: NINE LYMPH NODES, NEGATIVE FOR METASTATIC CARCINOMA (0/9); ONE LYMPH NODE SHOWS FOCI OF HISTIOCYTIC REACTION AND FIBROUS SCAR, CONSISTENT WITH TREATED METASTATIC TUMOR. Positive and negative controls (internal if applicable) show appropriate results. Formalin fixation and cold ischemic times are within current ASCO/CAP recommendations for ER, UT and Her2 testing. Electronically Signed Venecia Lopez M.D. Addendum Reported: 12/15/2018 Addendum Diagnosis Surgical margins are uninvolved by DCIS. Distance from DCIS cannot be determined as the tissue block with DCIS is from central breast tissue with no inked margins present. The transected tissue edges in the block with DCIS are uninvolved by DCIS. Venecia Lopez M.D. Gross Description A. Received in formalin labeled "left breast capsule biopsy," is a 0.9 x 0.9 x 0.6 cm avalos-pink portion of fibrous tissue, consistent with a portion of fibrous capsule. The specimen is trisected and entirely submitted in one cassette. B. Received fresh labeled "right breast implant," is an 11.0 x 9.0 x 3.8 cm intact breast implant. No soft tissue is present. No sections are submitted, gross only. C. Received fresh labeled "left breast implant," is a 13.0 x 10.5 x 4.5 cm intact breast implant. No soft tissue is present. No sections are submitted, gross only. D. Received in formalin, labeled "right modified radical mastectomy," is a 788 gram, 24.0 x 21.0 x 4.0 cm. right mastectomy specimen with a short suture marking the superior aspect and a long suture marking the lateral aspect of the specimen, per the surgeon. There is a 6.0 x 5.0 x 2.0 cm portion of axillary fat attached at the lateral aspect of the specimen. The anterior surface displays a 9.0 x 4.0 cm avalos, elliptical portion of skin with a 1.2 cm in diameter nipple. The deep margin displays and exposed fibrous capsule. The deep margin is inked black and the anterior soft tissue margin is inked blue. The specimen is serially sectioned from lateral to medial. Sectioning reveals a 3.2 x 2.5 x 2.4 cm focus of dense, firm fibrous tissue in the upper outer quadrant (UOQ). The focus is 1.5 cm from the anterior soft tissue margin. No definitive residual mass is identified. The remaining breast parenchyma displays multifocal fibrous tissue. Sectioning of the axillary tissue reveals abundant avalos lymph nodes, measuring up to 1.5 cm in greatest dimension. Outreach Counselor sections are submitted in 27 cassettes as follows: 1-serially sectioned nipple; 2-retroareolar shave; 3-4-one full-face bisected section of UOQ mass; 6-5-cjeehswelq UOQ mass; 10-uninvolved UOQ tissue; 71-91-ztkhf-outer quadrant; 13-14-upper inner quadrant; 15-16-lower inner quadrant; 17-skin and anterior soft tissue margin; 18-deep margin; 19-21-one bisected lymph node each; 22-27-two whole lymph nodes each. Time to formalin fixation: 2 minutes Total formalin fixation time: Approximately 26 hours. E. Received in formalin labeled "right high axillary lymph nodes," is a 5.0 x 3.4 x 0.3 cm aggregate of yellow, lobulated adipose tissue possibly containing lymph nodes. The specimen is submitted in toto in 3 cassettes. 12/10/201812/10/2018
== END 2018-12-12 13:03 | disposition home or self-care (01) | DRG 362 ==
LOC: FM/S 11:17 → UNDOADMIN 11:17
PROVIDERS: ADMIT Surgery Surgical Oncology; ATTEND Surgery Surgical Oncology
PROC: 0HRT0JZ Replacement of Right Breast with Synthetic Substitute, Open Approach (ICD-10-PCS; 2018-12-09)
PROC: 0HPU0JZ Removal of Synthetic Substitute from Left Breast, Open Approach (ICD-10-PCS; 2018-12-09)
PROC: 0HRU0JZ Replacement of Left Breast with Synthetic Substitute, Open Approach (ICD-10-PCS; 2018-12-09)
PROC: 0HTT0ZZ Resection of Right Breast, Open Approach (ICD-10-PCS; principal; 2018-12-09 15:28)
PROC: 07T50ZZ Resection of Right Axillary Lymphatic, Open Approach (ICD-10-PCS; 2018-12-09 15:28)
PROC: 0HHT0NZ Insertion of Tissue Expander into Right Breast, Open Approach (ICD-10-PCS; 2018-12-09 15:28)
DX: C50.911 Malignant neoplasm of unspecified site of right female breast (principal); I95.9 Hypotension, unspecified; Z97.8 Presence of other specified devices; N95.9 Unspecified menopausal and perimenopausal disorder; Z90.12 Acquired absence of left breast and nipple; Z17.1 Estrogen receptor negative status [ER-]; K59.00 Constipation, unspecified
CPT/HCPCS: 36415; 80053; 85025; 85610; 85730; 86850; 86900; 86901; 88300-TC; 88304-TC; 88307-TC; 88309-TC; 88342-TC; 94760

== ENCOUNTER 2018-12-12 14:27 | Inpatient (IN) | payer OTHER ==
[2018-12-12 16:05] LABS: BASO % 0.6 % (0-2.0); EOS % 4.2 % (0-4.5); HEMATOCRIT 32.1 % (32.4-45.2); HEMOGLOBIN 10.6 GM/dl (10.7-15.3); LYMPH % 35.6 % (8-40); MCH 33.7 pg (25.7-33.7); MCHC 32.9 g/dl (32.0-36.0); MEAN CELL VOLUME 102.5 fl (80-96); MEAN PLT VOLUME 7.3 fl (7.5-11.1); MONO % 16.4 % (3.8-10.2); NEUT % 43.2 % (42.8-82.8); PLATELET COUNT 201 K/MM3 (134-434); RBC 3.13 M/mm3 (3.60-5.2); RDW 12.3 % (11.6-15.6); WHITE BLOOD COUNT 4.6 K/mm3 (4.0-10.8)
[2018-12-12 16:13] LABS: ALBUMIN 3.5 g/dl (3.4-5.0); ALK PHOS 84 U/L (45-117); ANION GAP 9 MMOL/L (8-16); BILIRUBIN,TOTAL 0.7 mg/dl (0.2-1); CALCIUM 8.7 mg/dl (8.5-10); CHLORIDE 100 mmol/L (98-107); CO2 26 mmol/L (21-32); GLUCOSE,RANDOM 116 mg/dl (74-106); POTASSIUM 4.5 mmol/L (3.5-5.1); SGOT/AST 30 U/L (15-37); SGPT/ALT 25 U/L (13-61); SODIUM 135 mmol/L (136-145); TOT PROT 6.8 g/dl (6.4-8.2)
[2018-12-12 16:17] LABS: CREATININE < 0.6 mg/dl (0.55-1.3)
[2018-12-12 16:23] LABS: ACTIVATED PTT 28.5 SECONDS (25.2-36.5)
[2018-12-12 16:28] LABS: INR 1.57 (0.82-1.09); PROTHROMBIN TIME (PATIENT) 17.4 SEC (10.2-13.0)
[2018-12-12 17:07] LABS: VENOUS PC02 37.9 mmHg (41-51); VENOUS PH 7.45 (7.31-7.41); VENOUS PO2 59.7 mmHg (30-40)
[2018-12-12] MEDS ORDERED: CEFEPIME HCL/D5W 2 GM/50 ML BAG IVPB ONE ×2 (17:12→19:45)
--- NOTE | 2018-12-12 17:12 | PDOC ---
Documentation entered by Edna Mahajan SCRIBE, acting as scribe for Jabrai John MD. Jabari John MD: This documentation has been prepared by the Zaina lombardi Brenda, SCRIBE, under my direction and personally reviewed by me in its entirety. I confirm that the documentation accurately reflects all work, treatment, procedures, and medical decision making performed by me. History of Present Illness - General Stated Complaint: FEVER History Source: Patient Exam Limitations: No Limitations - History of Present Illness Initial Comments: 12/12/18 15:18 The patient is a 53 year old female with a significant PMH of left and right breast cancer s/p left mastectomy and right mastectomy (12/09/18 at [facility] [place]) who presents to the emergency department with a fever of 100.6 F. Patient reports having a right mastectomy on November, where her surgeon advised her to come to the ED if her temperature reached above 100 F. Patient also notes mild chills associated with her fever, and slight pain on right breast. The patient denies chest pain, shortness of breath and headache. Denies nausea, vomiting, diarrhea and constipation. Denies dysuria, frequency, urgency and hematuria. Allergies: Piperacillin and tazobactam Past medical history: 6 sessions of Chemotherapy every 3 weeks - most recent was last month. Social history: Social Alcohol Use PCP: Dr. Zamora Oncologist: Dr. Finch Surgeon: Dr. Robertson Past History - Past Medical History Allergies/Adverse Reactions: Allergies Allergy/AdvReac Type Severity Reaction Status Date / Time piperacillin [From Zosyn] Allergy Mild Rash Verified 12/04/18 11:50 tazobactam [From Zosyn] Allergy Mild Rash Verified 12/04/18 11:50 Home Medications: Ambulatory Orders Apixaban [Eliquis -] 5 mg PO BID #60 tablet 11/19/18 Cefadroxil 500 mg PO BID #30 capsule 12/11/18 Anemia: No Asthma: No Cancer: Yes (Left breast CA @ 38, recent dx Right breast CA) Cardiac Disorders: No CVA: No COPD: No CHF: No Dementia: No Diabetes: No GI Disorders: No Disorders: No HTN: No Hypercholesterolemia: No Liver Disease: No Seizures: No Thyroid Disease: No - Surgical History Abdominal Surgery: No Appendectomy: No Cardiac Surgery: No Cholecystectomy: No Lung Surgery: No Neurologic Surgery: No Orthopedic Surgery: No - Immunization History Immunization Up to Date: Yes - Suicide/Smoking/Psychosocial Hx Smoking History: Never smoked Have you smoked in the past 12 months: No Hx Alcohol Use: Yes (socially) Drug/Substance Use Hx: No Substance Use Type: None Hx Substance Use Treatment: No Review of Systems - Review of Systems Able to Perform ROS?: Yes Comments:: 12/12/18 15:19 ROS: A complete review of 10 out of 10 review of systems is taken and is negative apart from what is previously mentioned below and in the HPI. *Physical Exam - Vital Signs Last Vital Signs Temp Pulse Resp BP Pulse Ox 101.4 F H 121 H 16 120/79 97 12/12/18 15:00 12/12/18 14:29 12/12/18 14:29 12/12/18 14:29 12/12/18 14:29 - Physical Exam Comments: 12/12/18 15:19 Vitals: Triage vital signs reviewed General Appearance: No acute distress, well nourished, well developed Head: Atraumatic Eyes: Pupils equal reactive round, extraocular movement intact Throat: Posterior oropharynx without erythema, mucous membranes moist Neck: Supple; No nuchal rigidity Chest Wall: Nontender Cardiac: Regular rate and rhythm, no murmurs, no rubs, no gallops Lungs: Clear to auscultation bilateral, good air movement bilaterally Abdomen: Soft, nondistended, normal bowel sounds, nontender to palpation Extremities: Full range of motion to all extremities, no cyanosis, clubbing, or edema Skin: + Faint erythema on right breast on the lateral aspect of the surgical sight. Warm and dry. Neuro: AOX3; Cranial Nerves 2-12 grossly intact, Strength intact to all extremities, Sensation intact to all extremities, gait normal ED Treatment Course - LABORATORY CBC & Chemistry Diagram: 12/12/18 15:40 12/12/18 15:40 - ADDITIONAL ORDERS Additional order review: Laboratory Results 12/12/18 12/12/18 12/12/18 15:40 15:40 15:20 PT with INR 17.4 H INR 1.57 H PTT (Actin FS) 28.5 Sodium 135 L Potassium 4.5 Chloride 100 Carbon Dioxide 26 Anion Gap 9 BUN 12.0 Creatinine < 0.6 Est GFR (CKD-EPI)AfAm 119.77 Est GFR (CKD-EPI)NonAf 103.34 Random Glucose 116 H Calcium 8.7 Total Bilirubin 0.7 AST 30 ALT 25 Alkaline Phosphatase 84 Total Protein 6.8 Albumin 3.5 Urine Color Venecia Urine Appearance Clear Urine pH 7.0 Urine Protein Negative Urine Glucose (UA) Negative Urine Ketones Negative Urine Blood Trace-lysed Urine Nitrite Negative Urine Bilirubin Negative Urine Urobilinogen 0.2 Ur Leukocyte Esterase Negative Urine RBC 2-5 Urine WBC 0-2 12/12/18 15:40 RBC 3.13 L MCV 102.5 H MCHC 32.9 RDW 12.3 MPV 7.3 L Neutrophils % 43.2 Lymphocytes % 35.6 Monocytes % 16.4 H Eosinophils % 4.2 Basophils % 0.6 - RADIOLOGY Radiology Studies Ordered: Category Date Time Status CHEST X-RAY PORTABLE* [RAD] Stat Radiology 12/12/18 15:05 Taken Medical Decision Making - Medical Decision Making 12/12/18 15:20 Call was placed at 15:[address] Robertson, case discussed with Dr. John. Call was placed at 15:[address] Finch, call was transfered to Dr. Carvalho. Case was discussed with Dr. John at 15:31. Patient with new onset fever given recent chemotherapy infectious disease has recommended treatment with cefepime and observation until blood cultures return negative. No obvious source of infection at this time A chest x-ray demonstrates no acute pathology except for a slightly elevated hemidiaphragm We'll observe overnight for monitoring of fever labs antibiotics and follow-up of cultures *DC/Admit/Observation/Transfer Diagnosis at time of Disposition: Fever Qualifiers: Fever type: unspecified Qualified Code(s): R50.9 - Fever, unspecified - Discharge Dispostion Disposition: HOME Condition at time of disposition: Good Decision to Admit order: Yes - Referrals - Patient Instructions - Post Discharge Activity
[2018-12-12] MEDS ORDERED: ENOXAPARIN NA (PORCINE) 40 MG/0.4 ML DISP.SYRIN SQ SCH (17:15)
--- NOTE | 2018-12-12 18:22 | PN ---
Progress Note (short form) - Note Progress Note: Oncology 53 year old female followed by DR. Finch 2002 left breast ca treated with mastectomy and chemotherapy. 2007 saline implants BRCA+ Recently found to have right breast ca treated with neoadjuvant chemotherapy with carboplatinum and taxotere x 6. Last chemotherapy 10/29/18. 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 Did well post op. Discharged but developed fever to 100.4 with chills at home and returned to ER. where temp was 101.4. PMH BRCA+ bilateral breast ca surgery 2002 on left ; 12/09/18 on right IJ thrombus Family HX: Father with lung ca Meds:Eliquis Allergies:-piperacillin;tazobactam ROS denies headaches, diplopia, epistaxis, dysphagia, some right chest wall discomfort s/p surgery, n nausea, vomiting, diarrhea, dysuria, hematuria Last Vital Signs Temp Pulse Resp BP Pulse Ox 101.4 F H 121 H 16 120/79 97 12/12/18 15:00 12/12/18 14:29 12/12/18 14:29 12/12/18 14:29 12/12/18 14:29 HEENT: NATASHA, EOM Intact Oropharynx: No thrush, No mucositis Neck: Supple Breasts: mild erythema right anterior chest wall ; left chest wall clear Cor: RSR, No murmurs, No gallops Lungs: Clear to P&A Abd: Soft, Normal bowel sounds, No organomegaly Ext:No significant edema Skin: No rashes, Integument intact CBC, BMP 12/12/18 15:40 12/12/18 15:40 Current Medications Generic Name Dose Route Start Last Admin Trade Name Freq PRN Reason Stop Dose Admin Apixaban 5 mg 12/12/18 22:00 Eliquis - PO BID ABEL Cefepime HCl 2 gm in 50 mls @ 100 mls/hr 12/12/18 17:12 Maxipime 2gm Ivpb (Premix) IVPB 12/12/18 17:41 ONCE ONE Chest x-ray atelectatic changes bases Impression: S/P right mastectomy on 12/09 and 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 Cefepime after josé culturing Etiology : ? atelectasis To follow post surgical Continue jose armando
--- NOTE | 2018-12-12 18:39 | HP ---
CHIEF COMPLAINT: fever PCP: Dr. Zamora Oncologist: Dr. Finch Surgeon: Dr. Robertson HISTORY OF PRESENT ILLNESS: 53 year old female with a significant past medical history of left and right breast cancer s/p left mastectomy in 2002 [place] [facility] [place] to the emergency department with a fever of 101.4 F. Patient had a right mastectomy on November. She is postoperative day #3. She had was discharged home this afternoon. She had 6 sessions of chemotherapy which she gets every 3 weeks,most recent infusion was last month. Patient also reported mild chills associated with her fever, and slight pain to her right breast. She denied cough, chest pain, shortness of breath, headache,nausea, vomiting, diarrhea, constipation, dysuria, frequency, urgency and hematuria. ER course notable for fever 101.4. Workup showed no evidence of leukocytosis. ID - Dr. Segura was consulted. She received a dose of 2mg of IV Cefipine.She was evaluated by Dr. Finch(oncologist) in the ER. CXR demonstrated a possible effusion with atelectasis. UA was negative. Recent Travel: denies PAST MEDICAL HISTORY: breast cancer with bilateral mastectomy PAST SURGICAL HISTORY: left breast mastectomy 2002 right mastectomy 12/09/2018(undergoing chemotherapy every 3 weeks, had 6 sessions, last infusion last month) Social History: Smoking:denies Alcohol:socially Drugs: denies Family History:noncontributory Allergies piperacillin [From Zosyn] Allergy (Mild, Verified 12/04/18 11:50) Rash isolated single urticaria with mild itchiness to left medial forearm tazobactam [From Zosyn] Allergy (Mild, Verified 12/04/18 11:50) Rash isolated single urticaria with mild itchiness to left medial forearm HOME MEDICATIONS: Home Medications Medication Instructions Recorded Apixaban [Eliquis -] 5 mg PO BID #60 tablet 11/19/18 Cefadroxil 500 mg PO BID #30 capsule 12/11/18 REVIEW OF SYSTEMS CONSTITUTIONAL: Absent: fever, chills, diaphoresis, generalized weakness, malaise, loss of appetite, weight change, right breast pain HEENT: Absent: rhinorrhea, nasal congestion, throat pain, throat swelling, difficulty swallowing, mouth swelling, ear pain, eye pain, visual changes CARDIOVASCULAR: Absent: chest pain, syncope, palpitations, irregular heart rate, lightheadedness , peripheral edema RESPIRATORY: Absent: cough, shortness of breath, dyspnea with exertion, orthopnea, wheezing, stridor, hemoptysis GASTROINTESTINAL: Absent: abdominal pain, abdominal distension, nausea, vomiting, diarrhea, constipation, melena, hematochezia GENITOURINARY: Absent: dysuria, frequency, urgency, hesitancy, hematuria, flank pain, genital pain MUSCULOSKELETAL: Absent: myalgia, arthralgia, joint swelling, back pain, neck pain SKIN: Absent: rash, itching, pallor HEMATOLOGIC/IMMUNOLOGIC: Absent: easy bleeding, easy bruising, lymphadenopathy, frequent infections ENDOCRINE: Absent: unexplained weight gain, unexplained weight loss, heat intolerance, cold intolerance NEUROLOGIC: Absent: headache, focal weakness or paresthesias, dizziness, unsteady gait, seizure, mental status changes, bladder or bowel incontinence PSYCHIATRIC: Absent: anxiety, depression, suicidal or homicidal ideation, hallucinations. PHYSICAL EXAMINATION Vital Signs - 24 hr 12/12/18 12/12/18 14:29 15:00 Temperature 99.5 F 101.4 F H Pulse Rate 121 H Respiratory 16 Rate Blood Pressure 120/79 O2 Sat by Pulse 97 Oximetry (%) GENERAL: awake alert and fully oriented no acute distress HEAD: normal EYES: pupils equal, round and reactive to light NECK: supple LUNGS: breath sounds clear to auscultation bilaterally no wheezes or crackles no accessory muscle use. HEART: regular rate and rhythm, normal S1 and S2 ABDOMEN: soft, nontender, not distended, normoactive bowel sounds UPPER EXTREMITIES: 2+ pulses warm, well-perfused no cyanosis LOWER EXTREMITIES: 2+ pulses, warm well-perfused NEUROLOGICAL: normal speech PSYCHIATRIC: cooperative appropriate mood SKIN: warm dry normal turgor no rashes or lesions noted last 24 hr 12/12/18 12/12/18 12/12/18 15:20 15:40 15:40 WBC 4.6 RBC 3.13 L Hgb 10.6 L Hct 32.1 L MCV 102.5 H MCH 33.7 MCHC 32.9 RDW 12.3 Plt Count 201 MPV 7.3 L Absolute Neuts (auto) 2.0 Neutrophils % 43.2 Lymphocytes % 35.6 Monocytes % 16.4 H Eosinophils % 4.2 Basophils % 0.6 PT with INR 17.4 H INR 1.57 H PTT (Actin FS) 28.5 VBG pH POC VBG pCO2 POC VBG pO2 VBG HCO3 VBG O2 Sat (Diya) VBG Base Excess Sodium Potassium Chloride Carbon Dioxide Anion Gap BUN Creatinine Est GFR (CKD-EPI)AfAm Est GFR (CKD-EPI)NonAf Random Glucose Lactic Acid Calcium Total Bilirubin AST ALT Alkaline Phosphatase Total Protein Albumin Urine Color Venecia Urine Appearance Clear Urine pH 7.0 Urine Protein Negative Urine Glucose (UA) Negative Urine Ketones Negative Urine Blood Trace-lysed Urine Nitrite Negative Urine Bilirubin Negative Urine Urobilinogen 0.2 Ur Leukocyte Esterase Negative Urine RBC 2-5 Urine WBC 0-2 12/12/18 12/12/18 12/12/18 15:40 15:40 15:40 WBC RBC Hgb Hct MCV MCH MCHC RDW Plt Count MPV Absolute Neuts (auto) Neutrophils % Lymphocytes % Monocytes % Eosinophils % Basophils % PT with INR INR PTT (Actin FS) VBG pH 7.45 H POC VBG pCO2 37.9 L POC VBG pO2 59.7 H VBG HCO3 26.0 VBG O2 Sat (Diya) 89.3 H VBG Base Excess 2.5 H Sodium 135 L Potassium 4.5 Chloride 100 Carbon Dioxide 26 Anion Gap 9 BUN 12.0 Creatinine < 0.6 Est GFR (CKD-EPI)AfAm 119.77 Est GFR (CKD-EPI)NonAf 103.34 Random Glucose 116 H Lactic Acid 1.0 Calcium 8.7 Total Bilirubin 0.7 AST 30 ALT 25 Alkaline Phosphatase 84 Total Protein 6.8 Albumin 3.5 Urine Color Urine Appearance Urine pH Urine Protein Urine Glucose (UA) Urine Ketones Urine Blood Urine Nitrite Urine Bilirubin Urine Urobilinogen Ur Leukocyte Esterase Urine RBC Urine WBC ASSESSMENT/PLAN: 53 year old female with a significant past medical history of left and right breast cancer s/p left mastectomy in 2002 [place] [facility] [place] who presented with a fever of 101.4 F. She was discharged home earlier today. She is postoperative day #3. Fever /S/P Right Mastectomy POD #3 Symptomatic with fever and right breast soreness, CXR with ?efussion and atelectasis, UA negative no evidence of leukocytosis Received a dose of 2 gm IV Cefipine - blood and urine culture and lactic acid level pending - ID- Dr. Segura consulted - Tylenol 650 mg prn for fever - Continue with Roxicodone for pain FEN regular diet, monitor electrolytes DVT Eliquis 5 mg twice daily Visit type - Emergency Visit Emergency Visit: Yes ED Registration Date: 12/12/18 Care time: The patient presented to the Emergency Department on the above date and was hospitalized for further evaluation of their emergent condition. - New Patient This patient is new to me today: Yes Date on this admission: 12/12/18 - Critical Care Critical Care patient: No
[2018-12-12 18:46] VITALS: BMI 28.3
--- NOTE | 2018-12-12 18:58 | CON.ID ---
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 discharged home today noted temp to 100.6 after getting home sent to ED found to have temp to 101.4 +bm today no other complaints seen by surgeon earlier today and dressings and drains okay - History Source History Provided By: Patient, Medical Record Limitations to Obtaining History: No Limitations - Past Medical History ...LMP: 11/30/12 ...: No Heme/Onc: Yes: Cancer (left breast cancer 2002 with mastectomy and reconstruction, right breast cancer 2018 s/p chemo), Other (left IJ thrombosis with port removal, neutropenia) - Past Surgical History Past Surgical History: Yes: , Mastectomy (Left at age 37 chemotherapy mastectomy saline implant triple neg ) Additional Surgical History: port placed and removed - Alcohol/Substance Use Hx Alcohol Use: Yes (socially) - Smoking History Smoking history: Never smoked Have you smoked in the past 12 months: No - Social History ADL: Independent Place of : [place] ([place] History of Recent Travel: No Home Medications - Allergies Allergies/Adverse Reactions: Allergies Allergy/AdvReac Type Severity Reaction Status Date / Time piperacillin [From Zosyn] Allergy Mild Rash Verified 12/04/18 11:50 tazobactam [From Zosyn] Allergy Mild Rash Verified 12/04/18 11:50 - Home Medications Home Medications: Ambulatory Orders Apixaban [Eliquis -] 5 mg PO BID #60 tablet 11/19/18 Cefadroxil 500 mg PO BID #30 capsule 12/11/18 Family Disease History - Family Disease History Family Disease History: CA: Father (lung ca 68 ) Other Family History: aunt with breast cancer Review of Systems - Review of Systems Constitutional: reports: Chills, Fever Eyes: reports: No Symptoms HENT: reports: No Symptoms Neck: reports: No Symptoms Cardiovascular: reports: No Symptoms Respiratory: reports: No Symptoms Gastrointestinal: reports: No Symptoms Genitourinary: reports: No Symptoms Physical Exam Vital Signs: Vital Signs Temperature 99.2 F 12/12/18 17:12 Pulse Rate 121 H 12/12/18 17:12 Respiratory Rate 18 06/14/19 17:12 Blood Pressure 118/87 12/12/18 17:12 O2 Sat by Pulse Oximetry (%) 97 12/12/18 17:12 Constitutional: Yes: No Distress, Calm Eyes: Yes: Conjunctiva Clear, EOM Intact HENT: Yes: Atraumatic, Normocephalic. No: Thrush, Tonsillar Exudate Neck: Yes: Supple, Trachea Midline Cardiovascular: Yes: Regular Rate and Rhythm Respiratory: Yes: Regular, CTA Bilaterally, Other (dressing with drains intact chest wall) Gastrointestinal: Yes: Normal Bowel Sounds, Soft ...Rectal Exam: Yes: Deferred Renal/: No: CVA Tenderness - Left, CVA Tenderness - Right Extremities: Yes: WNL Edema: No Psychiatric: Yes: Alert, Oriented Labs: CBC, BMP 12/12/18 15:40 12/12/18 15:40 cultures pending Imaging - Results Chest X-ray: Report Reviewed, Image Reviewed (platelike atelectasis) Assessment/Plan post op fever history of breast cancer not neutropenic cultures sent penicillin allergy would continue cefepime and observe s/p modified right radical mastectomy 12/04 with reconstruction 12/09
[2018-12-12] MEDS: ACETAMINOPHEN 325 MG TABLET (FP) PO PRN (20:32)
[2018-12-12] MEDS: oxyCODONE HCL 5 MG TABLET PO PRN (20:32)
[2018-12-12] MEDS: APIXABAN 5 MG TABLET PO SCH (22:03)
[2018-12-12] MEDS ORDERED: IBUPROFEN 400 MG TABLET (FP) PO ONE (22:44)
[2018-12-13] MEDS: CEFEPIME 1 GM in DEXTROSE 5%-WATER 100 ML IVPB SCH ×2 (04:23→10:26)
[2018-12-13] MEDS: ACETAMINOPHEN 325 MG TABLET (FP) PO PRN ×2 (08:09→14:49)
[2018-12-13 08:26] LABS: BASO % 0.9 % (0-2.0); EOS % 7.3 % (0-4.5); HEMATOCRIT 29.4 % (32.4-45.2); HEMOGLOBIN 9.6 GM/dl (10.7-15.3); LYMPH % 39.9 % (8-40); MCH 33.5 pg (25.7-33.7); MCHC 32.8 g/dl (32.0-36.0); MEAN CELL VOLUME 102.1 fl (80-96); MEAN PLT VOLUME 8.2 fl (7.5-11.1); MONO % 17.4 % (3.8-10.2); NEUT % 34.5 % (42.8-82.8); PLATELET COUNT 170 K/MM3 (134-434); RBC 2.88 M/mm3 (3.60-5.2); WHITE BLOOD COUNT 3.4 K/mm3 (4.0-10.8)
[2018-12-13 09:15] LABS: CALCIUM 8.9 mg/dl (8.5-10); CREATININE 0.5 mg/dl (0.55-1.3); POTASSIUM 4.5 mmol/L (3.5-5.1)
--- NOTE | 2018-12-13 09:31 | CONSULT ---
Consult Consult Specialty:: Surgical Oncology Reason for Consultation:: Patient s/p right Modified Radical Mastectomy after neoadjuvant chemotherapy - History of Present Illness Chief Complaint: Fever History of Present Illness: The patient has a history of bilateral breast cancer and underwent a left breast mastectomy for a stage I breast cancer in 2002 with saline implant reconstruction in 2007. She developed a node positive right breast cancer recently which was poorly differentiated ER+/HER2- and underwent neoadjuvant CTX with Dr. Finch then a right modified radical mastectomy and gunner mate reconstruction and exchange of her left implant on 12/09/18. She developed a fever (101.4) and presented to the ER and was found to be febrile with CXR with signs of atelectasis. She was admitted on 12/12/18 started on cefipime. 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) Pulmonary: No: Asthma, Bronchitis, Cancer, COPD, O2 Dependent, Pneumonia, Previously Intubated, Pulmonary Embolus, Pulmonary Fibrosis, Sleep Apnea, Other Gastrointestinal: No: Ascites, Cancer, Constipation, Crohn's Disease, Diverticulitis, Diverticulosis, Esophageal Varices, Gastritis, GERD, GI Bleed, Hemorrhoids, Hiatal Hernia, Inflamatory Bowel Disease, Irritable Bowel Disease, Pancreatitis, Peptic Ulcer Disease, Ulcerative Colitis, Other ...LMP: 11/30/12 ...: No Heme/Onc: Yes: Anemia (anemia secondary to CTX) Infectious Disease: No: AIDS, C-Diff, Herpes Zoster, HIV, MRSA, STD's, Tuberculosis, VREF, Other Psych: No: Addictions, Anxiety, Bipolar, Depression, Panic, Psychosis, Schizophrenia, Other Musculoskeletal: No: Bursitis, Chronic low back pain, Hemiparesis, Hemiplegia, Osteoarthritis, Paraplegia, Other Rheumatology: No: Fibromyalgia, Gout, Lupus, Rheumatoid Arthritis, Sarcoidosis, Vasculitis, Other ENT: No: Allergic Rhinitis, Sinusitis, Other - Past Surgical History Past Surgical History: Yes: , Mastectomy (Left at age 37 chemotherapy mastectomy saline implant triple neg ) Additional Surgical History: port placed and removed - Alcohol/Substance Use Hx Alcohol Use: Yes (socially) - Smoking History Smoking history: Never smoked Have you smoked in the past 12 months: No - Social History ADL: Independent History of Recent Travel: No Home Medications - Allergies Allergies/Adverse Reactions: Allergies Allergy/AdvReac Type Severity Reaction Status Date / Time piperacillin [From Zosyn] Allergy Mild Rash Verified 12/04/18 11:50 tazobactam [From Zosyn] Allergy Mild Rash Verified 12/04/18 11:50 - Home Medications Home Medications: Ambulatory Orders Apixaban [Eliquis -] 5 mg PO BID #60 tablet 11/19/18 Cefadroxil 500 mg PO BID #30 capsule 12/11/18 Family Disease History - Family Disease History Family Disease History: CA: Father (lung ca 68 ) Other Family History: aunt with breast cancer Review of Systems - Review of Systems Constitutional: reports: Fever Eyes: reports: No Symptoms HENT: reports: No Symptoms Neck: reports: No Symptoms Cardiovascular: reports: No Symptoms Respiratory: reports: No Symptoms Gastrointestinal: reports: No Symptoms Genitourinary: reports: No Symptoms Breasts: reports: Other (postoperative pain from recent surgery) Musculoskeletal: reports: No Symptoms Integumentary: reports: No Symptoms Neurological: reports: No Symptoms Endocrine: reports: No Symptoms Hematology/Lymphatic: reports: Other (History of jugular vein thrombosis on A/C) Psychiatric: reports: No Symptoms Physical Exam Vital Signs: Vital Signs Temperature 99.6 F 12/13/18 08:15 Pulse Rate 94 H 12/13/18 08:15 Respiratory Rate 12/13/18 08:31 Blood Pressure 104/61 12/13/18 08:15 O2 Sat by Pulse Oximetry (%) 100 12/13/18 08:31 Constitutional: Yes: Well Nourished, No Distress, Calm Eyes: Yes: WNL HENT: Yes: Hoarseness Neck: Yes: Supple, Trachea Midline Cardiovascular: Yes: Regular Rate and Rhythm Respiratory: Yes: Regular Gastrointestinal: Yes: Normal Bowel Sounds, Soft ...Rectal Exam: Yes: Deferred Renal/: Yes: WNL Breast(s): Yes: Other (Mastectomy wound clean, dry, and intact. Drains functionning well. No signs of hematoma or infection) Musculoskeletal: Yes: WNL Extremities: Yes: WNL Integumentary: Yes: WNL Wound/Incision: Yes: Clean/Dry, Well Approximated Neurological: Yes: Alert, Oriented Psychiatric: Yes: WNL Labs: CBC, BMP 12/13/18 07:05 12/13/18 08:58 Problem List - Problems (1) Breast cancer, right breast Assessment/Plan: The patient is doing well HD#1 admitted for fever likely secondary to postoperative atelectasis. No leukocytosis but patient recently underwent neoadjuvant CTX. She is currently afebrile on cefipime. She continues on Eliquis with a history of a jugular vein thrombosis during CTX. Breast wounds are clean, dry, and intact. Dressing changes at bedside and no signs of any wound complications. Continue incentive spirometry and OOB ambulating. Continue cefipime. Awaiting final pathology after right modified radical mastectomy. Code(s): C50.911 - MALIGNANT NEOPLASM OF UNSP SITE OF RIGHT FEMALE BREAST Qualifiers: Breast location: unspecified site of breast Estrogen receptor status: negative Patient sex: female Qualified Code(s): C50.911 - Malignant neoplasm of unspecified site of right female breast; Z17.1 - Estrogen receptor negative status [ER-]
--- NOTE | 2018-12-13 10:22 | PN ---
Physical Exam: SUBJECTIVE: Patient seen and examined at bedside. No fever, no sweats, no chills. Has mild pain right surgical site. OBJECTIVE: Vital Signs Period Temp Pulse Resp BP Sys/Wofl Pulse Ox Last 24 Hr 98.3 F-101.4 F 80-121 16-19 91-120/54-87 97-100 GENERAL: The patient is awake, alert, and fully oriented, in no acute distress. LUNGS: Breath sounds equal, clear to auscultation bilaterally HEART: Regular rate and rhythm, S1, S2 CHEST: Two BISMARK drains on right with serosanguinous fluid; surgical site not visualized surgeon viewed today EXTREMITIES: 2+ pulses, warm, well-perfused, no edema. NEUROLOGICAL: Cranial nerves II through XII grossly intact. Normal speech, steady gait in hallway Laboratory Results - last 24 hr 12/12/18 12/12/18 12/12/18 15:20 15:40 15:40 WBC 4.6 RBC 3.13 L Hgb 10.6 L Hct 32.1 L MCV 102.5 H MCH 33.7 MCHC 32.9 RDW 12.3 Plt Count 201 MPV 7.3 L Absolute Neuts (auto) 2.0 Neutrophils % 43.2 Lymphocytes % 35.6 Monocytes % 16.4 H Eosinophils % 4.2 Basophils % 0.6 PT with INR 17.4 H INR 1.57 H PTT (Actin FS) 28.5 VBG pH POC VBG pCO2 POC VBG pO2 VBG HCO3 VBG O2 Sat (Diya) VBG Base Excess Sodium Potassium Chloride Carbon Dioxide Anion Gap BUN Creatinine Est GFR (CKD-EPI)AfAm Est GFR (CKD-EPI)NonAf Random Glucose Lactic Acid Calcium Total Bilirubin AST ALT Alkaline Phosphatase Total Protein Albumin Urine Color Venecia Urine Appearance Clear Urine pH 7.0 Urine Protein Negative Urine Glucose (UA) Negative Urine Ketones Negative Urine Blood Trace-lysed Urine Nitrite Negative Urine Bilirubin Negative Urine Urobilinogen 0.2 Ur Leukocyte Esterase Negative Urine RBC 2-5 Urine WBC 0-2 12/12/18 12/12/18 12/12/18 15:40 15:40 15:40 WBC RBC Hgb Hct MCV MCH MCHC RDW Plt Count MPV Absolute Neuts (auto) Neutrophils % Lymphocytes % Monocytes % Eosinophils % Basophils % PT with INR INR PTT (Actin FS) VBG pH 7.45 H POC VBG pCO2 37.9 L POC VBG pO2 59.7 H VBG HCO3 26.0 VBG O2 Sat (Diya) 89.3 H VBG Base Excess 2.5 H Sodium 135 L Potassium 4.5 Chloride 100 Carbon Dioxide 26 Anion Gap 9 BUN 12.0 Creatinine < 0.6 Est GFR (CKD-EPI)AfAm 119.77 Est GFR (CKD-EPI)NonAf 103.34 Random Glucose 116 H Lactic Acid 1.0 Calcium 8.7 Total Bilirubin 0.7 AST 30 ALT 25 Alkaline Phosphatase 84 Total Protein 6.8 Albumin 3.5 Urine Color Urine Appearance Urine pH Urine Protein Urine Glucose (UA) Urine Ketones Urine Blood Urine Nitrite Urine Bilirubin Urine Urobilinogen Ur Leukocyte Esterase Urine RBC Urine WBC 12/13/18 12/13/18 12/13/18 07:05 07:05 08:58 WBC 3.4 L RBC 2.88 L Hgb 9.6 L Hct 29.4 L MCV 102.1 H MCH 33.5 MCHC 32.8 RDW 12.0 Plt Count 170 MPV 8.2 Absolute Neuts (auto) 1.2 Neutrophils % 34.5 L Lymphocytes % 39.9 Monocytes % 17.4 H Eosinophils % 7.3 H Basophils % 0.9 PT with INR INR PTT (Actin FS) VBG pH POC VBG pCO2 POC VBG pO2 VBG HCO3 VBG O2 Sat (Diya) VBG Base Excess Sodium Cancelled 140 Potassium Cancelled 4.5 Chloride Cancelled 99 Carbon Dioxide Cancelled 29 Anion Gap Cancelled 12 BUN Cancelled 11.0 Creatinine Cancelled 0.5 L Est GFR (CKD-EPI)AfAm Cancelled 127.17 Est GFR (CKD-EPI)NonAf Cancelled 109.72 Random Glucose Cancelled 110 H Lactic Acid Calcium Cancelled 8.9 Total Bilirubin AST ALT Alkaline Phosphatase Total Protein Albumin Urine Color Urine Appearance Urine pH Urine Protein Urine Glucose (UA) Urine Ketones Urine Blood Urine Nitrite Urine Bilirubin Urine Urobilinogen Ur Leukocyte Esterase Urine RBC Urine WBC Active Medications Generic Name Dose Route Start Last Admin Trade Name Freq PRN Reason Stop Dose Admin Acetaminophen 650 mg 12/12/18 20:17 12/13/18 08:09 Tylenol - PO 650 mg Q6H PRN Administration FEVER Apixaban 5 mg 12/12/18 22:00 12/12/18 22:03 Eliquis - PO 5 mg BID ABEL Administration Cefepime HCl 1 gm/ Dextrose 100 mls @ 100 mls/hr 12/13/18 02:00 12/13/18 04: 23 IVPB 100 mls/hr Q8H-IV ABEL Administration Protocol Oxycodone HCl 5 mg 12/12/18 20:16 12/12/18 20:32 Roxicodone - PO 5 mg Q6H PRN Administration PAIN LEVEL 7 - 10 ASSESSMENT/PLAN 53 year-old female with a PMH significant for left breast cancer treated with mastectomy and chemotherapy in 2002, bilateral saline implants 2007, recent right breast cancer s/p taxotere/carboplatin x 6 cycles with neulasta support last treatment 10/29/18, chemotherapy course complicated by neutropenia and 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 Patient underwent right mastectomy on 12/09, was discharged to home on 12/12 but came back same day with fever and chills. 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 Full code. Visit type - Emergency Visit Emergency Visit: Yes ED Registration Date: 12/12/18 Care time: The patient presented to the Emergency Department on the above date and was hospitalized for further evaluation of their emergent condition. - New Patient This patient is new to me today: Yes Date on this admission: 12/13/18 - Critical Care Critical Care patient: No
[2018-12-13] MEDS: APIXABAN 5 MG TABLET PO SCH ×2 (10:25→21:46)
--- NOTE | 2018-12-13 10:39 | PN ---
Progress Note (short form) - Note Progress Note: Patient readmitted last night with low grade fevers at home She has been afebrile overnight, ambulating Exam: small area of skin necrosis on the lateral right mastectomy skin. This is an area of redundancy that can be easily revised in the office. No collections, cellulitis, or evidence of wound/implant infection. BISMARK's with thin, minimal serous fluid. working well. CXR with atelectasis. No lwukocytosis No leg pain I have encouraged more use of the incentive spirometer. Will follow.
--- NOTE | 2018-12-13 12:16 | PN ---
Progress Note (short form) - Note Progress Note: Patient seen and examined Feels better overall c/o occasional twinging pain rt. surgical site with chills Tmax yesterday 101.4 Last Vital Signs Temp Pulse Resp BP Pulse Ox 99.6 F 94 H 19 104/61 100 12/13/18 08:15 12/13/18 08:15 12/13/18 08:31 12/13/18 08:15 12/13/18 08:31 Cor: RSR, No murmurs, No gallops Lungs: Clear to P&A Abd: Soft, Normal bowel sounds, No organomegaly Ext:No significant edema Labs Abnormal Lab Results 12/12/18 12/12/18 12/12/18 15:40 15:40 15:40 WBC RBC 3.13 L Hgb 10.6 L Hct 32.1 L MCV 102.5 H MPV 7.3 L Neutrophils % Monocytes % 16.4 H Eosinophils % PT with INR 17.4 H INR 1.57 H VBG pH 7.45 H POC VBG pCO2 37.9 L POC VBG pO2 59.7 H VBG O2 Sat (Diya) 89.3 H VBG Base Excess 2.5 H Sodium Creatinine Random Glucose 12/12/18 12/13/18 12/13/18 15:40 07:05 08:58 WBC 3.4 L RBC 2.88 L Hgb 9.6 L Hct 29.4 L MCV 102.1 H MPV Neutrophils % 34.5 L Monocytes % 17.4 H Eosinophils % 7.3 H PT with INR INR VBG pH POC VBG pCO2 POC VBG pO2 VBG O2 Sat (Diya) VBG Base Excess Sodium 135 L Creatinine 0.5 L Random Glucose 116 H 110 H Active Medications Generic Name Dose Route Start Last Admin Trade Name Freq PRN Reason Stop Dose Admin Acetaminophen 650 mg 12/12/18 20:17 12/13/18 08:09 Tylenol - PO 650 mg Q6H PRN Administration FEVER Apixaban 5 mg 12/12/18 22:00 12/13/18 10:25 Eliquis - PO 5 mg BID ABEL Administration Cefepime HCl 1 gm/ Dextrose 100 mls @ 100 mls/hr 12/13/18 02:00 12/13/18 10: 26 IVPB 100 mls/hr Q8H-IV ABEL Administration Protocol Oxycodone HCl 5 mg 12/12/18 20:16 12/12/18 20:32 Roxicodone - PO 5 mg Q6H PRN Administration PAIN LEVEL 7 - 10 A/P 53 y/o patient with remote h/o left breast cancr in 2002 s/p mastectomy and adjuvant ? AC. Presents 06/17 with right breast mass . Biopsy c/w poorly differentiated IDC, ER-5% weak, CO-, HEr2-, Ki67-90%. Prognostic stage IIIB s/p taxotere/carboplatin x 6 cycles with neulasta support --last on 10/29/18 Develoed LT. IJ port related thrombosis and s/p removal of port-a-cath s/p rt. mastectomy/bilateral implants on 12/09/18 ---RT. mastectomy --3mm high grade DCIS. No residual invasive carcinoma.Nodes negative. DCIS-ER-0%, CO-0% Post op. fever upto 101.4 Fever curve improved ? atelectasis / ? inflammatory/cytokine On empiric cefepime WBC 3400/ ANC 1200 Would hold neupogen support for ANC > 500 Lt. IJ thrombosis --continue eliquis 5 mg bid to complete 3 months from 11/14/18 incentive spirometer/ambulation
[2018-12-13] MEDS ORDERED: SODIUM CHLORIDE 1,000 ML IV STA ×2 (15:10→17:15)
--- NOTE | 2018-12-13 15:28 | CON.PULM ---
Consult Consult Specialty:: PULMONARY Referred by:: PMD Reason for Consultation:: FEVER - History of Present Illness Chief Complaint: FEVER/SHAKING CHILLS History of Present Illness: The patient is a 53 year old female with a significant PMH of left and right breast cancer s/p left mastectomy and right mastectomy (12/09/18 at [facility]) who presents to the emergency department with a fever of 100.6 F. Patient reports having a right mastectomy on November, where her surgeon advised her to come to the ED if her temperature reached above 100 F. Patient also notes mild chills associated with her fever, and slight pain on right breast. The patient denies chest pain, shortness of breath and headache. Denies nausea, vomiting, diarrhea and constipation. Denies dysuria, frequency, urgency and hematuria. 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/C) Pulmonary: No: Asthma, Bronchitis, Cancer, COPD, O2 Dependent, Pneumonia, Previously Intubated, Pulmonary Embolus, Pulmonary Fibrosis, Sleep Apnea, Other Gastrointestinal: No: Ascites, Cancer, Constipation, Crohn's Disease, Diverticulitis, Diverticulosis, Esophageal Varices, Gastritis, GERD, GI Bleed, Hemorrhoids, Hiatal Hernia, Inflamatory Bowel Disease, Irritable Bowel Disease, Pancreatitis, Peptic Ulcer Disease, Ulcerative Colitis, Other ...LMP: 11/30/12 ...: No Infectious Disease: No: AIDS, C-Diff, Herpes Zoster, HIV, MRSA, STD's, Tuberculosis, VREF, Other Psych: No: Addictions, Anxiety, Bipolar, Depression, Panic, Psychosis, Schizophrenia, Other Musculoskeletal: No: Bursitis, Chronic low back pain, Hemiparesis, Hemiplegia, Osteoarthritis, Paraplegia, Other Rheumatology: No: Fibromyalgia, Gout, Lupus, Rheumatoid Arthritis, Sarcoidosis, Vasculitis, Other ENT: No: Allergic Rhinitis, Sinusitis, Other - Past Surgical History Past Surgical History: Yes: , Mastectomy (Left at age 37 chemotherapy mastectomy saline implant triple neg ) Additional Surgical History: port placed and removed - Alcohol/Substance Use Hx Alcohol Use: Yes (socially) - Smoking History Smoking history: Never smoked Have you smoked in the past 12 months: No - Social History ADL: Independent History of Recent Travel: No Home Medications - Allergies Allergies/Adverse Reactions: Allergies Allergy/AdvReac Type Severity Reaction Status Date / Time piperacillin [From Zosyn] Allergy Mild Rash Verified 12/04/18 11:50 tazobactam [From Zosyn] Allergy Mild Rash Verified 12/04/18 11:50 - Home Medications Home Medications: Ambulatory Orders Apixaban [Eliquis -] 5 mg PO BID #60 tablet 11/19/18 Cefadroxil 500 mg PO BID #30 capsule 12/11/18 Family Disease History - Family Disease History Family Disease History: CA: Father (lung ca 68 ) Other Family History: aunt with breast cancer Review of Systems - Review of Systems Constitutional: reports: Fever. denies: Night Sweats Eyes: denies: Blurred Vision HENT: denies: Difficult Swallowing Neck: denies: Decreased ROM Cardiovascular: denies: Chest Pain Respiratory: denies: Cough Gastrointestinal: denies: Abdominal Pain Genitourinary: denies: Burning Physical Exam Vital Sings: Vital Signs Temperature 101 F H 12/13/18 14:53 Pulse Rate 97 H 12/13/18 14:10 Respiratory Rate 18 12/13/18 14:10 Blood Pressure 109/55 L 12/13/18 14:10 O2 Sat by Pulse Oximetry (%) 99 12/13/18 14:10 Constitutional: Yes: Calm Eyes: Yes: EOM Intact HENT: Yes: Normocephalic Neck: Yes: Trachea Midline Cardiovascular: Yes: Regular Rate and Rhythm Respiratory: Yes: CTA Bilaterally Gastrointestinal: Yes: Normal Bowel Sounds Edema: No Labs: CBC, BMP 12/13/18 07:05 12/13/18 08:58 Imaging - Results Chest X-ray: Report Reviewed, Image Reviewed Cat Scan: Report Reviewed, Image Reviewed Problem List - Problems (1) Fever Code(s): R50.9 - FEVER, UNSPECIFIED Qualifiers: Fever type: unspecified Qualified Code(s): R50.9 - Fever, unspecified (2) Breast CA Code(s): C50.919 - MALIGNANT NEOPLASM OF UNSP SITE OF UNSPECIFIED FEMALE BREAST (3) Internal jugular vein thrombosis Code(s): I82.C19 - ACUTE EMBOLISM AND THROMBOSIS OF UNSP INTERNAL JUGULAR VEIN Assessment/Plan AGREE WITH [employer] C[employer] WHILE CULTURES ARE PENDING INCENTIVE KAMALJIT TYLENOL PRN/IV FLUIDS REQUIRED MAY NEED REPEAT CT CHEST WILL FOLLOW Kathy BROOKE MD
[2018-12-13] MEDS: SODIUM CHLORIDE 1,000 ML IV SCH (16:23)
[2018-12-13 17:40] LABS: BASO % 0.7 % (0-2.0); EOS % 3.7 % (0-4.5); HEMATOCRIT 30.4 % (32.4-45.2); HEMOGLOBIN 10.1 GM/dl (10.7-15.3); LYMPH % 22.8 % (8-40); MCH 33.9 pg (25.7-33.7); MCHC 33.3 g/dl (32.0-36.0); MEAN CELL VOLUME 101.9 fl (80-96); MEAN PLT VOLUME 7.7 fl (7.5-11.1); MONO % 8.7 % (3.8-10.2); NEUT % 64.1 % (42.8-82.8); PLATELET COUNT 212 K/MM3 (134-434); RBC 2.99 M/mm3 (3.60-5.2); RDW 12.1 % (11.6-15.6); WHITE BLOOD COUNT 6.2 K/mm3 (4.0-10.8)
[2018-12-13] MEDS: CEFEPIME HCL/D5W 2 GM/50 ML BAG IVPB SCH (18:02)
[2018-12-13] MEDS: oxyCODONE HCL 5 MG TABLET PO PRN (18:49)
--- NOTE | 2018-12-13 19:13 | PN ---
Physical Exam: SUBJECTIVE: Patient seen and re-examined after spiking fever to 101.3 this afternoon. Complains or right lower chest "pinching" pain and points to site of BISMARK drains as most painful. OBJECTIVE: Vital Signs Period Temp Pulse Resp BP Sys/Wolf Pulse Ox Last 24 Hr 98.3 F-101.3 F 80-110 17-19 91-117/52-74 97-100 Right and left breast surgical wounds examined, small area of erythema right lateral breast; two BISMARK drains under lateral right breast draining thin serosanguinous fluid, no pus; area surrounding the insertion sites is erythematous and exquisitely tender, no exudate seen Lower extremities: 2+ pulses, warm, well-perfused, no edema. No calf tenderness Laboratory Results - last 24 hr 12/13/18 12/13/18 12/13/18 07:05 07:05 08:58 WBC 3.4 L RBC 2.88 L Hgb 9.6 L Hct 29.4 L MCV 102.1 H MCH 33.5 MCHC 32.8 RDW 12.0 Plt Count 170 MPV 8.2 Absolute Neuts (auto) 1.2 Neutrophils % 34.5 L Lymphocytes % 39.9 Monocytes % 17.4 H Eosinophils % 7.3 H Basophils % 0.9 Sodium Cancelled 140 Potassium Cancelled 4.5 Chloride Cancelled 99 Carbon Dioxide Cancelled 29 Anion Gap Cancelled 12 BUN Cancelled 11.0 Creatinine Cancelled 0.5 L Est GFR (CKD-EPI)AfAm Cancelled 127.17 Est GFR (CKD-EPI)NonAf Cancelled 109.72 Random Glucose Cancelled 110 H Lactic Acid Calcium Cancelled 8.9 12/13/18 12/13/18 17:20 17:20 WBC 6.2 RBC 2.99 L Hgb 10.1 L Hct 30.4 L MCV 101.9 H MCH 33.9 H MCHC 33.3 RDW 12.1 Plt Count 212 MPV 7.7 Absolute Neuts (auto) 4.1 Neutrophils % 64.1 Lymphocytes % 22.8 Monocytes % 8.7 Eosinophils % 3.7 Basophils % 0.7 Sodium Potassium Chloride Carbon Dioxide Anion Gap BUN Creatinine Est GFR (CKD-EPI)AfAm Est GFR (CKD-EPI)NonAf Random Glucose Lactic Acid Cancelled Calcium Active Medications Generic Name Dose Route Start Last Admin Trade Name Freq PRN Reason Stop Dose Admin Acetaminophen 650 mg 06/14/19 20:17 12/13/18 14:49 Tylenol - PO 650 mg Q6H PRN Administration FEVER Apixaban 5 mg 12/12/18 22:00 12/13/18 10:25 Eliquis - PO 5 mg BID ABEL Administration Cefepime HCl 2 gm in 50 mls @ 100 mls/hr 12/13/18 18:00 12/13/18 18:02 Maxipime 2gm Ivpb (Premix) IVPB 100 mls/hr Q8H-IV ABEL Administration Protocol Sodium Chloride 1,000 mls @ 75 mls/hr 12/13/18 15:15 12/13/18 16:23 Normal Saline - IV 75 mls/hr ASDIR ABEL Administration Oxycodone HCl 5 mg 12/12/18 20:16 12/12/18 20:32 Roxicodone - PO 5 mg Q6H PRN Administration PAIN LEVEL 7 - 10 ASSESSMENT/PLAN Fever of uncertain etiology SIRS --spiked fever to 101.3 this afternoon with chills, continues to be tachycardic, pain under right breast at site of BISMARK drains; no SOB --repeat CBC improved WBC 3.4k-->6.2k, and ANC 1,200 -->4,100; blood cultures NGTD, urine culture pending --CXR unrevealing for obvious source of infection (possibly atelectasis?), UA negative --will obtain US of LEs to r/o DVT --d-dimer pending,depending on result, CTA to r/o PE (Wells score moderate to high risk) Visit type - Emergency Visit Emergency Visit: Yes ED Registration Date: 12/12/18 Care time: The patient presented to the Emergency Department on the above date and was hospitalized for further evaluation of their emergent condition. - New Patient This patient is new to me today: No - Critical Care Critical Care patient: No
[2018-12-13] MEDS ORDERED: ACETAMINOPHEN 325 MG TABLET (FP) PO ONE (19:33)
[2018-12-14] MEDS: CEFEPIME HCL/D5W 2 GM/50 ML BAG IVPB SCH (01:51)
[2018-12-14] MEDS: ACETAMINOPHEN 325 MG TABLET (FP) PO PRN ×3 (04:54→20:54)
[2018-12-14] MEDS: oxyCODONE HCL 5 MG TABLET PO PRN ×2 (04:54→11:23)
[2018-12-14] MEDS ORDERED: CEFEPIME HCL 2 GM VIAL (RESTRICTED TO ID) ONE (09:43)
[2018-12-14] MEDS ORDERED: DEXTROSE 5%-WATER 100 ML IVPB ONE (09:44)
[2018-12-14] MEDS: APIXABAN 5 MG TABLET PO SCH ×2 (09:46→21:05)
[2018-12-14] MEDS: CEFEPIME 2 GM in DEXTROSE 5%-WATER 100 ML IVPB SCH ×2 (09:46→18:35)
--- NOTE | 2018-12-14 10:37 | PN ---
Progress Note, Physician Chief Complaint: History of bilateral breast cacner s/p right modified radical mastectomy and readmitted for fever/atelectasis History of Present Illness: The patient has a history of bilateral breast cancer and underwent a left breast mastectomy for a stage I breast cancer in 2002 with saline implant reconstruction in 2007. She developed a node positive right breast cancer recently which was poorly differentiated ER+/HER2- and underwent neoadjuvant CTX with Dr. 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 She developed a fever (101.4) and presented to the ER and was found to be febrile with CXR with signs of atelectasis. She was admitted on 12/12/18 started on cefipime. - Current Medication List Current Medications: Active Medications Acetaminophen (Tylenol -) 650 mg PO Q6H PRN PRN Reason: FEVER Last Admin: 12/14/18 04:54 Dose: 650 mg Apixaban (Eliquis -) 5 mg PO BID ABEL Last Admin: 12/14/18 09:46 Dose: 5 mg Sodium Chloride (Normal Saline -) 1,000 mls @ 75 mls/hr IV ASDIR ABEL Last Admin: 12/13/18 16:23 Dose: 75 mls/hr Cefepime HCl 2 gm/ Dextrose 100 mls @ 200 mls/hr IVPB Q8H-IV ABEL; Protocol Last Admin: 12/14/18 09:46 Dose: 200 mls/hr Oxycodone HCl (Roxicodone -) 5 mg PO Q6H PRN PRN Reason: PAIN LEVEL 7 - 10 Last Admin: 12/14/18 04:54 Dose: 5 mg - Objective Vital Signs: Vital Signs Temperature 98.8 F 12/14/18 06:00 Pulse Rate 94 H 12/14/18 06:00 Respiratory Rate 17 12/14/18 06:00 Blood Pressure 101/53 L 12/14/18 06:00 O2 Sat by Pulse Oximetry (%) 98 12/14/18 06:00 Constitutional: Yes: Well Nourished, No Distress, Calm Eyes: Yes: WNL HENT: Yes: Atraumatic, Normocephalic Neck: Yes: WNL Cardiovascular: Yes: Regular Rate and Rhythm Respiratory: Yes: Regular, CTA Bilaterally Gastrointestinal: Yes: Normal Bowel Sounds, Soft ...Rectal Exam: Yes: Deferred Genitourinary: Yes: WNL Breast(s): Yes: Other (Bilateral wounds clean, dry, and intact. Drains functioning well) Extremities: Yes: WNL Edema: Yes Wound/Incision: Yes: Clean/Dry, Well Approximated Neurological: Yes: Alert, Oriented ...Motor Strength: WNL Psychiatric: Yes: WNL Labs: INR, PTT INR 1.57 (0.82-1.09) H 12/12/18 15:40 Problem List - Problems (1) Breast cancer, right breast Assessment/Plan: She is doing well HD#2 admitted for postoperative fever. She is currently afebrile with low grade temp last night. Blood cultures negative to date. On cefipime. Wounds clean, dry, and intact. Drains functioning well. Dressing changed at bedside today. 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 Also had CTA yesterday with no PE but noted mediastinal adenopathy. Has good pain control. Continue IV cefipime and likely stable for discharge tomorrow. Follow up with Dr. Robertson in about 1 week after discharge. Code(s): C50.911 - MALIGNANT NEOPLASM OF UNSP SITE OF RIGHT FEMALE BREAST Qualifiers: Breast location: unspecified site of breast Estrogen receptor status: negative Patient sex: female Qualified Code(s): C50.911 - Malignant neoplasm of unspecified site of right female breast; Z17.1 - Estrogen receptor negative status [ER-]
[2018-12-14 10:48] LABS: BASO % 0.5 % (0-2.0); EOS % 5.5 % (0-4.5); HEMATOCRIT 26.5 % (32.4-45.2); HEMOGLOBIN 8.8 GM/dL (10.7-15.3); LYMPH % 29.5 % (8-40); MCH 33.8 pg (25.7-33.7); MCHC 33.2 g/dl (32.0-36.0); MEAN CELL VOLUME 101.8 fl (80-96); MONO % 16.9 % (3.8-10.2); NEUT % 47.6 % (42.8-82.8); PLATELET COUNT 173 K/MM3 (134-434); RDW 12.8 % (11.6-15.6)
--- NOTE | 2018-12-14 11:06 | PN ---
Progress Note (short form) - Note Progress Note: PULMONARY VSS/AFEBRILE AWAKE/ALERT NO CHANGE IN EXAM NOTES REVIEWED CTA NEG FOR PE VENOUS DUPLEX NEGATIVE RESOLVED POST-OP FEVER AGREE WITH D/C HOME IN AM IF SHE REMAINS STABLE Kathy BROOKE MD Problem List - Problems (1) Fever Code(s): R50.9 - FEVER, UNSPECIFIED Qualifiers: Fever type: unspecified Qualified Code(s): R50.9 - Fever, unspecified (2) Breast CA Code(s): C50.919 - MALIGNANT NEOPLASM OF UNSP SITE OF UNSPECIFIED FEMALE BREAST (3) Internal jugular vein thrombosis Code(s): I82.C19 - ACUTE EMBOLISM AND THROMBOSIS OF UNSP INTERNAL JUGULAR VEIN
[2018-12-14 11:24] LABS: ALBUMIN 2.7 g/dl (3.4-5.0); BILIRUBIN,TOTAL 0.7 mg/dL (0.2-1); CALCIUM 8.1 mg/dL (8.5-10.1); CREATININE 0.5 mg/dL (0.55-1.3); TOT PROT 5.6 g/dl (6.4-8.2)
--- NOTE | 2018-12-14 14:50 | PN ---
Progress Note (short form) - Note Progress Note: low grade temp of 100.3 was up and walking chest CTA negative for PE, no infiltrates, ?mediastinal adenopathy duplex negative no diarrhea Vital Signs Period Temp Pulse Resp BP Sys/Wolf Pulse Ox Last 24 Hr 98.7 F-101.3 F 88-107 - 89-117/51-74 96-100 no thrush cor-rrr lungs clear abd soft,nt ext no edema dressing intact chest CBC, BMP 12/14/18 06:45 12/14/18 06:45 Microbiology 12/12/18 15:20 Urine - Urine Clean Catch Urine Culture - Final 12/12/18 15:30 Blood - Peripheral Venous Blood Culture - Preliminary NO GROWTH OBTAINED AFTER 24 HOURS, INCUBATION TO CONTINUE FOR 4 DAYS. 12/12/18 15:30 Blood - Peripheral Venous Blood Culture - Preliminary NO GROWTH OBTAINED AFTER 24 HOURS, INCUBATION TO CONTINUE FOR 4 DAYS. a/p postop fevers resolving cultures negative ?etiology of mediastinal adenopathy- it would be reasonable to consider d/c home tomorrow with close outpt f/u if she remains stable
--- NOTE | 2018-12-14 15:12 | PN ---
Progress Note (short form) - Note Progress Note: patient continues with low grade fevers. Wounds without evidence of infection. Drainage is clear serous with no turbidity. CTA neg, Duplex negative. SSD to area of skin ischemia ABX per ID. No surgical indication for now.
--- NOTE | 2018-12-14 15:51 | PN ---
Physical Exam: SUBJECTIVE: Patient seen and examined. Had an episode of chills this afternoon. OBJECTIVE: Vital Signs Period Temp Pulse Resp BP Sys/Wolf Pulse Ox Last 24 Hr 98.7 F-100.3 F 88-107 16-19 89-112/51-59 96-100 GENERAL: The patient is awake, alert, and fully oriented, in no acute distress. LUNGS: Breath sounds equal, clear to auscultation bilaterally HEART: Regular rate and rhythm, S1, S2 CHEST: Two BISMARK drains on right with serosanguinous fluid; surgical site not visualized surgeon viewed today EXTREMITIES: 2+ pulses, warm, well-perfused, no edema. NEUROLOGICAL: Cranial nerves II through XII grossly intact. Normal speech, steady gait in hallway Laboratory Results - last 24 hr 12/13/18 12/13/18 12/13/18 17:20 17:20 19:00 WBC 6.2 RBC 2.99 L Hgb 10.1 L Hct 30.4 L MCV 101.9 H MCH 33.9 H MCHC 33.3 RDW 12.1 Plt Count 212 MPV 7.7 Absolute Neuts (auto) 4.1 Neutrophils % 64.1 Lymphocytes % 22.8 Monocytes % 8.7 Eosinophils % 3.7 Basophils % 0.7 Nucleated RBC % D-Dimer Cancelled Sodium Potassium Chloride Carbon Dioxide Anion Gap BUN Creatinine Est GFR (CKD-EPI)AfAm Est GFR (CKD-EPI)NonAf Random Glucose Lactic Acid Cancelled Calcium Ferritin Total Bilirubin AST ALT Alkaline Phosphatase LD Total Total Protein Albumin 12/13/18 12/13/18 12/14/18 19:00 20:54 06:45 WBC 4.0 RBC 2.60 L Hgb 8.8 L Hct 26.5 L D MCV 101.8 H MCH 33.8 H MCHC 33.2 RDW 12.8 Plt Count 173 MPV 8.0 Absolute Neuts (auto) 1.9 Neutrophils % 47.6 Lymphocytes % 29.5 D Monocytes % 16.9 H Eosinophils % 5.5 H D Basophils % 0.5 Nucleated RBC % 0 D-Dimer 530 H Sodium Potassium Chloride Carbon Dioxide Anion Gap BUN Creatinine Est GFR (CKD-EPI)AfAm Est GFR (CKD-EPI)NonAf Random Glucose Lactic Acid 1.4 Calcium Ferritin Total Bilirubin AST ALT Alkaline Phosphatase LD Total Total Protein Albumin 12/14/18 06:45 WBC RBC Hgb Hct MCV MCH MCHC RDW Plt Count MPV Absolute Neuts (auto) Neutrophils % Lymphocytes % Monocytes % Eosinophils % Basophils % Nucleated RBC % D-Dimer Sodium 138 Potassium 4.0 Chloride 104 Carbon Dioxide 26 Anion Gap 8 BUN 7.0 Creatinine 0.5 L Est GFR (CKD-EPI)AfAm 127.17 Est GFR (CKD-EPI)NonAf 109.72 Random Glucose 83 Lactic Acid Calcium 8.1 L Ferritin 154.7 Total Bilirubin 0.7 AST 15 ALT 24 Alkaline Phosphatase 73 LD Total 168 Total Protein 5.6 L Albumin 2.7 L Active Medications Generic Name Dose Route Start Last Admin Trade Name Freq PRN Reason Stop Dose Admin Acetaminophen 650 mg 12/12/18 20:17 12/14/18 14:49 Tylenol - PO 650 mg Q6H PRN Administration FEVER Apixaban 5 mg 12/12/18 22:00 12/14/18 09:46 Eliquis - PO 5 mg BID ABEL Administration Sodium Chloride 1,000 mls @ 75 mls/hr 12/13/18 15:15 12/13/18 16:23 Normal Saline - IV 75 mls/hr ASDIR ABEL Administration Cefepime HCl 2 gm/ Dextrose 100 mls @ 200 mls/hr 12/14/18 09:20 12/14/18 09: 46 IVPB 200 mls/hr Q8H-IV ABEL Administration Protocol Oxycodone HCl 5 mg 12/12/18 20:16 12/14/18 11:23 Roxicodone - PO 5 mg Q6H PRN Administration PAIN LEVEL 7 - 10 ASSESSMENT/PLAN: 53 year-old female with a PMH significant for left breast cancer treated with mastectomy and chemotherapy in 2002, bilateral saline implants 2007, recent right breast cancer s/p taxotere/carboplatin x 6 cycles with neulasta support last treatment 10/29/18, chemotherapy course complicated by neutropenia and 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 Patient underwent right mastectomy on 12/09, was discharged to home on 12/12 but came back same day with fever and chills. 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 Full code. Visit type - Emergency Visit Emergency Visit: Yes ED Registration Date: 12/12/18 Care time: The patient presented to the Emergency Department on the above date and was hospitalized for further evaluation of their emergent condition. - New Patient This patient is new to me today: No - Critical Care Critical Care patient: No
--- NOTE | 2018-12-14 16:57 | EKG ---
Test Reason : Blood Pressure : / mmHG Vent. Rate : 094 BPM Atrial Rate : 094 BPM P-R Int : 146 ms QRS Dur : 076 ms QT Int : 336 ms P-R-T Axes : 057 030 046 degrees QTc Int : 420 ms POOR DATA QUALITY, INTERPRETATION MAY BE ADVERSELY AFFECTED NORMAL SINUS RHYTHM NORMAL ECG WHEN COMPARED WITH ECG OF 05-DEC-2018 11:52, NO SIGNIFICANT CHANGE WAS FOUND Confirmed by MD MARLYS, TATY ([id number]) on 12/14/2018 4:57:36 PM Referred By: MD JONES Confirmed By:TATY FRANKEL MD
[2018-12-14] MEDS: SODIUM CHLORIDE 1,000 ML IV SCH (17:00)
--- NOTE | 2018-12-14 19:23 | PN ---
Progress Note (short form) - Note Progress Note: Patient seen and examined Feels better overall c/o occasional twinging pain rt. surgical site with chills Tmax yesterday 101.4 Low grade temps today Last Vital Signs Temp Pulse Resp BP Pulse Ox 100.3 F H 98 H 16 112/59 L 98 12/14/18 14:03 12/14/18 14:03 12/14/18 14:03 12/14/18 14:03 12/14/18 14:03 Cor: RSR, No murmurs, No gallops Lungs: Clear to P&A Abd: Soft, Normal bowel sounds, No organomegaly Ext:No significant edema Labs Abnormal Lab Results 12/13/18 12/14/18 12/14/18 20:54 06:45 06:45 RBC 2.60 L Hgb 8.8 L Hct 26.5 L D MCV 101.8 H MCH 33.8 H Monocytes % 16.9 H Eosinophils % 5.5 H D D-Dimer 530 H Creatinine 0.5 L Calcium 8.1 L Total Protein 5.6 L Albumin 2.7 L Active Medications Generic Name Dose Route Start Last Admin Trade Name Freq PRN Reason Stop Dose Admin Acetaminophen 650 mg 12/12/18 20:17 12/14/18 14:49 Tylenol - PO 650 mg Q6H PRN Administration FEVER Apixaban 5 mg 12/12/18 22:00 12/14/18 09:46 Eliquis - PO 5 mg BID ABEL Administration Sodium Chloride 1,000 mls @ 75 mls/hr 12/13/18 15:15 12/14/18 17:00 Normal Saline - IV 75 mls/hr ASDIR ABEL Administration Cefepime HCl 2 gm/ Dextrose 100 mls @ 200 mls/hr 12/14/18 09:20 12/14/18 18: 35 IVPB 200 mls/hr Q8H-IV ABEL Administration Protocol Oxycodone HCl 5 mg 12/12/18 20:16 12/14/18 11:23 Roxicodone - PO 5 mg Q6H PRN Administration PAIN LEVEL 7 - 10 A/P 53 y/o patient with remote h/o left breast cancr in 2002 s/p mastectomy and adjuvant ? AC. Presents 06/17 with right breast mass/axillary nodes . Biopsy c/ w poorly differentiated IDC, ER-5% weak, IA-, HEr2-, Ki67-90%. Prognostic stage IIIB s/p taxotere/carboplatin x 6 cycles with neulasta support --last on 10/29/[address] IJ port related thrombosis and s/p removal of port-a-cath s/p rt. mastectomy/bilateral implants on 12/09/18 ---pathology revealed 3mm high grade DCIS. No residual invasive carcinoma.Nodes negative. DCIS-ER-0%, IA-0% admitted for post op. fever upto 101.4 Fever curve improved ? atelectasis / ? inflammatory/cytokine On empiric cefepime cultures negative WBC 4000/ANC 1900 . Would hold off neupogen for ANC >500 Lt. IJ thrombosis --continue eliquis 5 mg bid to complete 3 months from 11/14/18 DUp[viktoriya lower ext. neg. CTA --no PE incentive spirometer/ambulation d/c planning based on clinical course
[2018-12-15] MEDS ORDERED: DEXTROSE 5%-WATER 100 ML IVPB ONE ×2 (01:03→09:16)
[2018-12-15] MEDS ORDERED: CEFEPIME HCL 2 GM VIAL (RESTRICTED TO ID) ONE ×2 (01:03→09:15)
[2018-12-15] MEDS: CEFEPIME 2 GM in DEXTROSE 5%-WATER 100 ML IVPB SCH ×2 (01:11→09:40)
--- NOTE | 2018-12-15 05:45 | DS ---
Physical Exam: SUBJECTIVE: Patient seen and examined OBJECTIVE: Vital Signs Period Temp Pulse Resp BP Sys/Wolf Pulse Ox Last 24 Hr 98.8 F-100.3 F 94-103 16-17 100-112/50-77 98-98 PHYSICAL EXAM GENERAL: The patient is awake, alert, and fully oriented, in no acute distress. HEAD: Normal with no signs of trauma. EYES: PERRL, extraocular movements intact, sclera anicteric, conjunctiva clear. ENT: Ears normal, nares patent, oropharynx clear without exudates, moist mucous membranes. NECK: Trachea midline, full range of motion, supple. LUNGS: Breath sounds equal, clear to auscultation bilaterally, no wheezes, no crackles, no accessory muscle use. HEART: Regular rate and rhythm, S1, S2 without murmur, rub or gallop. ABDOMEN: Soft, nontender, nondistended, normoactive bowel sounds, no guarding, no rebound, no hepatosplenomegaly, no masses. EXTREMITIES: 2+ pulses, warm, well-perfused, no edema. NEUROLOGICAL: Cranial nerves II through XII grossly intact. Normal speech, gait not observed. PSYCH: Normal mood, normal affect. SKIN: Warm, dry, normal turgor, no rashes or lesions noted. LABS Laboratory Results - last 24 hr 12/14/18 12/14/18 06:45 06:45 WBC 4.0 RBC 2.60 L Hgb 8.8 L Hct 26.5 L D MCV 101.8 H MCH 33.8 H MCHC 33.2 RDW 12.8 Plt Count 173 MPV 8.0 Absolute Neuts (auto) 1.9 Neutrophils % 47.6 Lymphocytes % 29.5 D Monocytes % 16.9 H Eosinophils % 5.5 H D Basophils % 0.5 Nucleated RBC % 0 Sodium 138 Potassium 4.0 Chloride 104 Carbon Dioxide 26 Anion Gap 8 BUN 7.0 Creatinine 0.5 L Est GFR (CKD-EPI)AfAm 127.17 Est GFR (CKD-EPI)NonAf 109.72 Random Glucose 83 Calcium 8.1 L Ferritin 154.7 Total Bilirubin 0.7 AST 15 ALT 24 Alkaline Phosphatase 73 LD Total 168 Total Protein 5.6 L Albumin 2.7 L HOSPITAL COURSE: Date of Admission:12/12/18 Date of Discharge: 12/15/18 Discharge Summary Reason For Visit: FEVER Current Active Problems Fever (Acute) Condition: Good - Instructions - Home Medications Comprehensive Discharge Medication List: Ambulatory Orders Apixaban [Eliquis -] 5 mg PO BID #60 tablet 11/19/18 Cefadroxil 500 mg PO BID #30 capsule 12/11/18
[2018-12-15 07:54] LABS: BASO % 0.4 % (0-2.0); EOS % 4.7 % (0-4.5); HEMATOCRIT 26.9 % (32.4-45.2); HEMOGLOBIN 8.7 GM/dl (10.7-15.3); LYMPH % 23.1 % (8-40); MCHC 32.6 g/dl (32.0-36.0); MEAN CELL VOLUME 101.4 fl (80-96); MEAN PLT VOLUME 7.5 fl (7.5-11.1); NEUT % 58.8 % (42.8-82.8); PLATELET COUNT 202 K/MM3 (134-434); RBC 2.65 M/mm3 (3.60-5.2); RDW 12.1 % (11.6-15.6); WHITE BLOOD COUNT 4.3 K/mm3 (4.0-10.8)
[2018-12-15 07:56] LABS: ALBUMIN 2.7 g/dl (3.4-5.0); BILIRUBIN,TOTAL 0.8 mg/dl (0.2-1); CALCIUM 8.4 mg/dl (8.5-10); CREATININE 0.4 mg/dl (0.55-1.3); POTASSIUM 4.1 mmol/L (3.5-5.1); TOT PROT 5.8 g/dl (6.4-8.2)
[2018-12-15] MEDS: APIXABAN 5 MG TABLET PO SCH ×2 (09:40→22:27)
--- NOTE | 2018-12-15 09:48 | PN ---
Progress Note, Physician History of Present Illness: AWAKE, ALERT NO FOCAL COMPLAINT + LOW GRADE TEMP PAST 24HR NO C/O CHILLS/ RIGORS NO CHEST PAIN/DYSPNEA/ COUGH NO DYSURIA - Current Medication List Current Medications: Active Medications Acetaminophen (Tylenol -) 650 mg PO Q6H PRN PRN Reason: FEVER Last Admin: 12/14/18 20:54 Dose: 650 mg Apixaban (Eliquis -) 5 mg PO BID ABEL Last Admin: 12/15/18 09:40 Dose: 5 mg Sodium Chloride (Normal Saline -) 1,000 mls @ 75 mls/hr IV ASDIR ABEL Last Admin: 12/14/18 17:00 Dose: 75 mls/hr Cefepime HCl 2 gm/ Dextrose 100 mls @ 200 mls/hr IVPB Q8H-IV ABEL; Protocol Last Admin: 12/15/18 09:40 Dose: 200 mls/hr Oxycodone HCl (Roxicodone -) 5 mg PO Q6H PRN PRN Reason: PAIN LEVEL 7 - 10 Last Admin: 12/14/18 11:23 Dose: 5 mg - Objective Vital Signs: Vital Signs Temperature 99.3 F 12/15/18 06:58 Pulse Rate 94 H 12/15/18 06:58 Respiratory Rate 16 12/15/18 06:58 Blood Pressure 101/50 L 12/15/18 06:58 O2 Sat by Pulse Oximetry (%) 96 12/15/18 06:00 Constitutional: Yes: No Distress Eyes: Yes: Conjunctiva Clear Cardiovascular: Yes: Regular Rate and Rhythm, S1, S2 Respiratory: Yes: CTA Bilaterally Gastrointestinal: Yes: Normal Bowel Sounds, Soft. No: Tenderness Musculoskeletal: Yes: Other (L BREAST SURGICAL WOUND HEALING WELL. R BREAST WOUND WITH SOME ULCERATION LATERALLY. NO ERYTHEMA OR DRAINAGE) Extremities: No: Calf Tenderness Edema: LLE: 1+, RLE: 1+ Labs: CBC, BMP 12/15/18 07:03 12/15/18 07:03 INR, PTT INR 1.57 (0.82-1.09) H 12/12/18 15:40 Assessment/Plan LOW GRADE FEVER ? SOURCE POD# 6 CULTURES NO GROWTH DISCUSSED WITH SURGERY SWITCH TO PO KEFLEX, OBSERVE
--- NOTE | 2018-12-15 11:23 | PN ---
Progress Note (short form) - Note Progress Note: s/p right modified radical mastectomy after neoadj chemo path showed near complete response with residual DCIS, 0 nodes admitted with low grade temp most likely secondary to atelectasis concern because of leukopenia appreciate id note pt looks well right chest wall incision has small area of skin necrosis w/o cellulitis all right to discharge home with dressing changes with silvadene rto next week
--- NOTE | 2018-12-15 13:24 | PN ---
Progress Note (short form) - Note Progress Note: Patient seen and examined Low grade temps today upto 100.6 Last Vital Signs Temp Pulse Resp BP Pulse Ox 99.3 F 94 H 16 101/50 L 96 12/15/18 06:58 12/15/18 06:58 12/15/18 06:58 12/15/18 06:58 12/15/18 06:00 Cor: RSR, No murmurs, No gallops Lungs: Clear to P&A Abd: Soft, Normal bowel sounds, No organomegaly Ext:No significant edema Labs Abnormal Lab Results 12/15/18 12/15/18 07:03 07:03 RBC 2.65 L Hgb 8.7 L Hct 26.9 L MCV 101.4 H Monocytes % 13.0 H Eosinophils % 4.7 H Creatinine 0.4 L Calcium 8.4 L Total Protein 5.8 L Albumin 2.7 L Active Medications Generic Name Dose Route Start Last Admin Trade Name Freq PRN Reason Stop Dose Admin Acetaminophen 650 mg 12/12/18 20:17 12/14/18 20:54 Tylenol - PO 650 mg Q6H PRN Administration FEVER Apixaban 5 mg 12/12/18 22:00 12/15/18 09:40 Eliquis - PO 5 mg BID ABEL Administration Sodium Chloride 1,000 mls @ 75 mls/hr 12/13/18 15:15 12/14/18 17:00 Normal Saline - IV 75 mls/hr ASDIR ABEL Administration Cefepime HCl 2 gm/ Dextrose 100 mls @ 200 mls/hr 12/14/18 09:20 12/15/18 09: 40 IVPB 200 mls/hr Q8H-IV ABEL Administration Protocol Oxycodone HCl 5 mg 12/12/18 20:16 12/14/18 11:23 Roxicodone - PO 5 mg Q6H PRN Administration PAIN LEVEL 7 - 10 A/P 53 y/o patient with remote h/o left breast cancer in 2002 s/p mastectomy and adjuvant ? AC. Presents 06/17 with right breast mass/axillary nodes . Biopsy c/ w poorly differentiated IDC, ER-5% weak, IA-, HEr2-, Ki67-90%. Prognostic stage IIIB s/p taxotere/carboplatin x 6 cycles with neulasta support --last on 10/29/18 s/p rt. mastectomy/bilateral implants on 12/09/18 ---pathology revealed 3mm high grade DCIS. No residual invasive carcinoma.Nodes negative. DCIS-ER-0%, IA-0% admitted for post op. fever upto 101.4 Fever curve improved ? atelectasis / ? inflammatory/cytokine On empiric cefepime WBC normal. Would hold off neupogen for ANC >500 Lt. IJ thrombosis --continue eliquis 5 mg bid to complete 3 months from 11/14/18 DUplex lower ext. neg. CTA --no PE compared with previous CT scans -- patient with mediastinal goiter/ borderline 12mm node. TSH,fT4--normal Post op. anemia -- stable check iron studies d/c planning
[2018-12-15] MEDS: oxyCODONE HCL 5 MG TABLET PO PRN (14:25)
[2018-12-15] MEDS: ACETAMINOPHEN 325 MG TABLET (FP) PO PRN ×2 (14:26→22:27)
[2018-12-15] MEDS: SODIUM CHLORIDE 1,000 ML IV SCH (15:15)
[2018-12-15] MEDS: CEPHALEXIN MONOHYDRATE 500 MG CAPSULE (UD) PO SCH (18:07)
--- NOTE | 2018-12-15 19:27 | PN ---
Physical Exam: SUBJECTIVE: Patient seen and examined at bedside. Feeling better but concerned about fevers. OBJECTIVE: Vital Signs Period Temp Pulse Resp BP Sys/Wolf Pulse Ox Last 24 Hr 99.3 F-100.8 F 94-105 16-18 91-101/45-77 96-99 GENERAL: The patient is awake, alert, and fully oriented, in no acute distress. LUNGS: Breath sounds equal, clear to auscultation bilaterally HEART: Regular rate and rhythm, S1, S2 CHEST: Two BISMARK drains on right with serosanguinous fluid EXTREMITIES: 2+ pulses, warm, well-perfused, no edema. NEUROLOGICAL: Cranial nerves II through XII grossly intact. Normal speech, steady gait Laboratory Results - last 24 hr 12/15/18 12/15/18 07:03 07:03 WBC 4.3 RBC 2.65 L Hgb 8.7 L Hct 26.9 L MCV 101.4 H MCH 33.0 MCHC 32.6 RDW 12.1 Plt Count 202 MPV 7.5 Absolute Neuts (auto) 2.5 Neutrophils % 58.8 Lymphocytes % 23.1 Monocytes % 13.0 H Eosinophils % 4.7 H Basophils % 0.4 Sodium 136 Potassium 4.1 Chloride 100 Carbon Dioxide 25 Anion Gap 11 BUN 7.0 Creatinine 0.4 L Est GFR (CKD-EPI)AfAm 136.86 Est GFR (CKD-EPI)NonAf 118.08 Random Glucose 105 Calcium 8.4 L Total Bilirubin 0.8 AST 15 ALT 19 Alkaline Phosphatase 61 D Total Protein 5.8 L Albumin 2.7 L TSH 0.56 Free T4 1.11 Active Medications Generic Name Dose Route Start Last Admin Trade Name Freq PRN Reason Stop Dose Admin Acetaminophen 650 mg 12/12/18 20:17 12/15/18 14:26 Tylenol - PO 650 mg Q6H PRN Administration FEVER Apixaban 5 mg 12/12/18 22:00 12/15/18 09:40 Eliquis - PO 5 mg BID ABEL Administration Cephalexin HCl 500 mg 12/15/18 18:00 12/15/18 18:07 Keflex - PO 500 mg Q6HPO ABEL Administration Sodium Chloride 1,000 mls @ 75 mls/hr 12/13/18 15:15 12/15/18 15:15 Normal Saline - IV 75 mls/hr ASDIR ABEL Administration Oxycodone HCl 5 mg 12/12/18 20:16 12/15/18 14:25 Roxicodone - PO 5 mg Q6H PRN Administration PAIN LEVEL 7 - 10 ASSESSMENT/PLAN 53 year-old female with a PMH significant for left breast cancer treated with mastectomy and chemotherapy in 2002, bilateral saline implants 2007, recent right breast cancer s/p taxotere/carboplatin x 6 cycles with neulasta support last treatment 10/29/18, chemotherapy course complicated by neutropenia and 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 Patient underwent right mastectomy on 12/09, was discharged to home on 12/12 but came back same day with fever and chills. 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 Full code. Visit type - Emergency Visit Emergency Visit: Yes ED Registration Date: 12/15/18 Care time: The patient presented to the Emergency Department on the above date and was hospitalized for further evaluation of their emergent condition. - New Patient This patient is new to me today: No - Critical Care Critical Care patient: No
[2018-12-16] MEDS: CEPHALEXIN MONOHYDRATE 500 MG CAPSULE (UD) PO SCH ×2 (05:03)
[2018-12-16 08:13] LABS: BASO % 0.3 % (0-2.0); EOS % 4.2 % (0-4.5); HEMATOCRIT 28.7 % (32.4-45.2); HEMOGLOBIN 9.4 GM/dl (10.7-15.3); LYMPH % 23.8 % (8-40); MCH 33.4 pg (25.7-33.7); MCHC 32.7 g/dl (32.0-36.0); MEAN CELL VOLUME 102.1 fl (80-96); MEAN PLT VOLUME 7.4 fl (7.5-11.1); MONO % 9.3 % (3.8-10.2); NEUT % 62.4 % (42.8-82.8); PLATELET COUNT 253 K/MM3 (134-434); RBC 2.82 M/mm3 (3.60-5.2); RDW 11.8 % (11.6-15.6); WHITE BLOOD COUNT 5.1 K/mm3 (4.0-10.8)
--- NOTE | 2018-12-16 08:18 | PN ---
Progress Note (short form) - Note Progress Note: Continue SSD No evidence of wound infection BISMARK's thin serous fluid: low output, but only for 24 hours. I will leave BISMARK's until follow up on Saturday. Plan skin revisiion of necrosis. OK for discharge on PO abx from plastics standpoint. f/u w/ me Saturday.
[2018-12-16] MEDS: APIXABAN 5 MG TABLET PO SCH ×2 (09:34→21:24)
--- NOTE | 2018-12-16 10:14 | PN ---
Progress Note, Physician History of Present Illness: PULMONARY ALERT,NO DISTRESS,-SOB,-COUGH,-CONGESTION. Tmax 101.1 - Current Medication List Current Medications: Active Medications Acetaminophen (Tylenol -) 650 mg PO Q6H PRN PRN Reason: FEVER Last Admin: 12/15/18 22:27 Dose: 650 mg Apixaban (Eliquis -) 5 mg PO BID [facility] Last Admin: 12/16/18 09:34 Dose: 5 mg Cephalexin HCl (Keflex -) 500 mg PO Q6HPO [facility] Last Admin: 12/16/18 05:03 Dose: 500 mg Sodium Chloride (Normal Saline -) 1,000 mls @ 75 mls/hr IV ASDIR [facility] Last Admin: 12/15/18 15:15 Dose: 75 mls/hr Oxycodone HCl (Roxicodone -) 5 mg PO Q6H PRN PRN Reason: PAIN LEVEL 7 - 10 Last Admin: 12/15/18 14:25 Dose: 5 mg - Objective Vital Signs: Vital Signs Temperature 99.4 F 12/16/18 06:00 Pulse Rate 103 H 12/16/18 06:00 Respiratory Rate 18 12/16/18 08:49 Blood Pressure 103/73 12/16/18 06:00 O2 Sat by Pulse Oximetry (%) 99 12/16/18 08:49 Constitutional: Yes: Well Nourished, Calm Eyes: Yes: WNL HENT: Yes: WNL Neck: Yes: WNL Cardiovascular: Yes: Regular Rate and Rhythm, S1, S2 Respiratory: Yes: CTA Bilaterally Gastrointestinal: Yes: Normal Bowel Sounds, Soft Extremities: Yes: WNL Edema: No Labs: CBC, BMP 12/16/18 07:29 12/15/18 07:03 INR, PTT INR 1.57 (0.82-1.09) H 12/12/18 15:40 Assessment/Plan Problem List - Problems (1) Fever Code(s): R50.9 - FEVER, UNSPECIFIED Qualifiers: Fever type: unspecified Qualified Code(s): R50.9 - Fever, unspecified (2) Breast CA Code(s): C50.919 - MALIGNANT NEOPLASM OF UNSP SITE OF UNSPECIFIED FEMALE BREAST (3) Internal jugular vein thrombosis Code(s): I82.C19 - ACUTE EMBOLISM AND THROMBOSIS OF UNSP INTERNAL JUGULAR VEIN 4 ANEMIA PLAN ABX PER ID INCENTIVE SPIROMETER CHEST X-RAY DR GATES
--- NOTE | 2018-12-16 11:00 | PN ---
Progress Note, Physician History of Present Illness: AWAKE, ALERT NO FOCAL COMPLAINT NON-TOXIC APPEARING + FEBRILE PAST 24HR NO C/O CHILLS/ RIGORS NO CHEST PAIN/DYSPNEA/ COUGH NO DYSURIA - Current Medication List Current Medications: Active Medications Acetaminophen (Tylenol -) 650 mg PO Q6H PRN PRN Reason: FEVER Last Admin: 12/15/18 22:27 Dose: 650 mg Apixaban (Eliquis -) 5 mg PO BID [facility] Last Admin: 12/16/18 09:34 Dose: 5 mg Cephalexin HCl (Keflex -) 500 mg PO Q6HPO [facility] Last Admin: 12/16/18 05:03 Dose: 500 mg Sodium Chloride (Normal Saline -) 1,000 mls @ 75 mls/hr IV ASDIR [facility] Last Admin: 12/15/18 15:15 Dose: 75 mls/hr Oxycodone HCl (Roxicodone -) 5 mg PO Q6H PRN PRN Reason: PAIN LEVEL 7 - 10 Last Admin: 12/15/18 14:25 Dose: 5 mg - Objective Vital Signs: Vital Signs Temperature 99.4 F 12/16/18 06:00 Pulse Rate 103 H 12/16/18 06:00 Respiratory Rate 18 12/16/18 08:49 Blood Pressure 103/73 12/16/18 06:00 O2 Sat by Pulse Oximetry (%) 99 12/16/18 08:49 Constitutional: Yes: No Distress Eyes: Yes: Conjunctiva Clear Cardiovascular: Yes: Regular Rate and Rhythm, S1, S2 Respiratory: Yes: CTA Bilaterally Gastrointestinal: Yes: Normal Bowel Sounds, Soft. No: Tenderness Breast(s): Yes: Other (SURGICAL WOUNDS HEALING WELL W/O SIGNS OF INFECTION. BISMARK DRAINS WITH SEROSANGUINOUS FLUID) Extremities: No: Calf Tenderness Edema: No Labs: CBC, BMP 12/16/18 07:29 12/15/18 07:03 INR, PTT INR 1.57 (0.82-1.09) H 12/12/18 15:40 Assessment/Plan POD# 7 FEVERS ? SOURCE NO LOCALIZING SIGNS/ SYMPTOMS OF INFECTION NON TOXIC APPEARING CULTURES NO GROWTH DISCUSSED WITH SURGERY OK FOR D/C HOME ON PO ANTIBIOTICS OUTPATIENT SURGICAL F/U
--- NOTE | 2018-12-16 11:28 | DS ---
Physical Exam: SUBJECTIVE: Patient seen and examined. Feels much better, feels ready to go home. OBJECTIVE: Vital Signs Period Temp Pulse Resp BP Sys/Wolf Pulse Ox Last 24 Hr 99.4 F-101.3 F 101-105 18-20 91-138/45-74 97-100 PHYSICAL EXAM GENERAL: The patient is awake, alert, and fully oriented, in no acute distress. LUNGS: Breath sounds equal, clear to auscultation bilaterally HEART: Regular rate and rhythm, S1, S2 CHEST: Two BISMARK drains on right with serosanguinous fluid EXTREMITIES: 2+ pulses, warm, well-perfused, no edema. NEUROLOGICAL: Cranial nerves II through XII grossly intact. Normal speech, steady gait LABS Laboratory Results - last 24 hr 12/15/18 12/16/18 12/16/18 07:03 07:29 07:29 WBC 5.1 RBC 2.82 L Hgb 9.4 L Hct 28.7 L MCV 102.1 H MCH 33.4 MCHC 32.7 RDW 11.8 Plt Count 253 MPV 7.4 L Absolute Neuts (auto) 3.2 Neutrophils % 62.4 Lymphocytes % 23.8 Monocytes % 9.3 Eosinophils % 4.2 Basophils % 0.3 ESR 104 H Total T3 106.00 Date of Admission:12/15/18 Date of Discharge: 12/16/18 Pre hospital course 53 year-old female with a PMH significant for left breast cancer treated with mastectomy and chemotherapy in 2002, bilateral saline implants 2007, recent right breast cancer s/p taxotere/carboplatin x 6 cycles with neulasta support last treatment 10/29/18, chemotherapy course complicated by neutropenia and 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 Patient underwent right mastectomy on 12/09, was discharged to home on 12/12 but came back same day with fever and chills. Hospital course Right breast cancer s/p right mastectomy and exchange of left implant on 12/09/18 Post-operative fevers --discharged on POD #7, hospital stay marked by persistent fevers with no obvious source --CTA chest negative for PE, no infiltrates --US BLE negative for DVT --no sign of surgical infection, BISMARK drainage was thin, clear serous --cultures negative --was treated inpatient with Cefepime; discharged on cefadroxil x 7 more days of treatment; follow up with Dr. 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 Take this medication as directed for 7 days. You have an appointment to follow up with Dr. Bailey on December 19 at 2: 15pm at his office located at [address] [place] [address], [address] Referrals: Jerome Bailey MD [Staff Physician] - 12/19/18 2:15 pm Disposition: HOME - Home Medications Comprehensive Discharge Medication List: Ambulatory Orders Apixaban [Eliquis -] 5 mg PO BID #60 tablet 11/19/18 Cefadroxil 500 mg PO BID #30 capsule 12/11/18 This patient is new to me today: No Emergency Visit: Yes ED Registration Date: 12/15/18 Care time: The patient presented to the Emergency Department on the above date and was hospitalized for further evaluation of their emergent condition. Critical Care patient: No - Discharge Referral Referred to [facility] Med [facility].C.: No
--- NOTE | 2018-12-16 15:59 | HOSP ---
Subjective - Review of Symptoms Events since last encounter: Discussion with Dr. Finch (heme/onc) with input from Dr. Bailey (surgery), Dr. Guerrero (ID). Patient continues to spike fevers with no obvioius infectious source despite extensive workup. Low suspicion for metastatic disease per Dr. Finch based on negative imaging and lab results. Will re-culture patient, stop Keflex, and switch to levaquin. Physical Examination Vital Signs: Vital Signs Temperature 101.1 F H 12/16/18 14:21 Pulse Rate 101 H 12/16/18 14:21 Respiratory Rate 20 12/16/18 14:21 Blood Pressure 121/64 12/16/18 14:21 O2 Sat by Pulse Oximetry (%) 98 12/16/18 14:21 Labs: CBC, BMP 12/16/18 07:29 12/15/18 07:03
--- NOTE | 2018-12-16 18:28 | PN ---
Progress Note (short form) - Note Progress Note: Patient seen and examined Temps upto 101.5 Very anxious and tearful Last Vital Signs Temp Pulse Resp BP Pulse Ox 101.1 F H 101 H 20 121/64 98 12/16/18 14:21 12/16/18 14:21 12/16/18 14:21 12/16/18 14:21 12/16/18 14:21 Cor: RSR, No murmurs, No gallops Lungs: Clear to P&A Abd: Soft, Normal bowel sounds, No organomegaly Ext: LUE --phlebitis/ swelling Labs Abnormal Lab Results 12/15/18 12/16/18 12/16/18 07:03 07:29 07:29 RBC 2.82 L Hgb 9.4 L Hct 28.7 L MCV 102.1 H MPV 7.4 L ESR Iron 10 L TIBC 208 L Iron Saturation 5 L C-Reactive Protein 14.7 H Urine Urobilinogen 12/16/18 12/16/18 07:29 16:15 RBC Hgb Hct MCV MPV ESR 104 H Iron TIBC Iron Saturation C-Reactive Protein Urine Urobilinogen 4.0 e.u/dl H Active Medications Generic Name Dose Route Start Last Admin Trade Name Freq PRN Reason Stop Dose Admin Acetaminophen 650 mg 12/12/18 20:17 12/16/18 18:59 Tylenol - PO 650 mg Q6H PRN Administration FEVER Apixaban 5 mg 12/12/18 22:00 12/16/18 09:34 Eliquis - PO 5 mg BID [facility] Administration Sodium Chloride 1,000 mls @ 42 mls/hr 12/16/18 19:00 Normal Saline - IV ASDIR [facility] Levofloxacin 500 mg 12/17/18 17:00 Levaquin - PO DAILY@1700 [facility] Oxycodone HCl 5 mg 12/12/18 20:16 12/15/18 14:25 Roxicodone - PO 5 mg Q6H PRN Administration PAIN LEVEL 7 - 10 A/P 53 y/o patient with remote h/o left breast cancer in 2002 s/p mastectomy and adjuvant ? AC. Presents 06/17 with right breast mass/axillary nodes . Biopsy c/ w poorly differentiated IDC, ER-5% weak, MO-, HEr2-, Ki67-90%. 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 No residual invasive carcinoma.Nodes negative. DCIS-ER-0%, MO-0% admitted for post op. fever upto 101.4 Fevers ? atelectasis / ? inflammatory/cytokine/? Beta lactam drug fever/ fever due to seroma/hematoma/ ? superficial phlebitis in rt. forearm Discussed with Dr. Guerrero/Dr. Bailey -- will stop blactam, reculture, start levaquin WBC normal. Would hold off neupogen for ANC >500 Lt. IJ thrombosis --continue eliquis 5 mg bid to complete 3 months from 11/14/18 DUplex lower ext. neg. CTA --no PE compared with previous CT scans -- patient with mediastinal goiter/ borderline 12mm nodesmall reactive hilar nodes TSH,fT4, TT3 Nl--normal Post op. anemia -- stable check iron studies will follow
[2018-12-16] MEDS: ACETAMINOPHEN 325 MG TABLET (FP) PO PRN (18:59)
[2018-12-16] MEDS ORDERED: SODIUM CHLORIDE 1,000 ML IV SCH (19:00)
[2018-12-17 08:03] LABS: BASO % 0.6 % (0-2.0); EOS % 4.7 % (0-4.5); HEMATOCRIT 27.1 % (32.4-45.2); HEMOGLOBIN 9.1 GM/dl (10.7-15.3); LYMPH % 20.1 % (8-40); MCH 33.7 pg (25.7-33.7); MCHC 33.6 g/dl (32.0-36.0); MEAN CELL VOLUME 100.1 fl (80-96); MEAN PLT VOLUME 7.5 fl (7.5-11.1); MONO % 8.3 % (3.8-10.2); NEUT % 66.3 % (42.8-82.8); PLATELET COUNT 225 K/MM3 (134-434); WHITE BLOOD COUNT 4.6 K/mm3 (4.0-10.8)
[2018-12-17 08:23] LABS: ALBUMIN 2.8 g/dl (3.4-5.0); BILIRUBIN,TOTAL 1.1 mg/dl (0.2-1); CALCIUM 8.4 mg/dl (8.5-10); CREATININE 0.5 mg/dl (0.55-1.3); MAGNESIUM 1.8 mg/dL (1.8-2.4); TOT PROT 6.3 g/dl (6.4-8.2)
--- NOTE | 2018-12-17 09:14 | PN ---
Physical Exam: SUBJECTIVE: Patient seen and examined. Has been without fever since last night. Now asking to go home. OBJECTIVE: Vital Signs Period Temp Pulse Resp BP Sys/Wolf Pulse Ox Last 24 Hr 98.3 F-101.5 F 89-119 18-20 92-121/52-69 95-100 GENERAL: The patient is awake, alert, and fully oriented, in no acute distress. LUNGS: Breath sounds equal, clear to auscultation bilaterally HEART: Regular rate and rhythm, S1, S2 CHEST: Two BISMARK drains on right with serosanguinous fluid EXTREMITIES: 2+ pulses, warm, well-perfused, no edema. NEUROLOGICAL: Cranial nerves II through XII grossly intact. Normal speech, steady gait Laboratory Results - last 24 hr 12/15/18 12/16/18 12/16/18 07:03 07:29 07:29 WBC RBC Hgb Hct MCV MCH MCHC RDW Plt Count MPV Absolute Neuts (auto) Neutrophils % Lymphocytes % Monocytes % Eosinophils % Basophils % ESR 104 H Sodium Potassium Chloride Carbon Dioxide Anion Gap BUN Creatinine Est GFR (CKD-EPI)AfAm Est GFR (CKD-EPI)NonAf Random Glucose Calcium Magnesium Iron 10 L TIBC 208 L Iron Saturation 5 L Ferritin 202.1 Total Bilirubin AST ALT Alkaline Phosphatase C-Reactive Protein 14.7 H Total Protein Albumin Urine Color Urine Appearance Urine pH Urine Protein Urine Glucose (UA) Urine Ketones Urine Blood Urine Nitrite Urine Bilirubin Urine Urobilinogen Ur Leukocyte Esterase Urine RBC Urine WBC Urine Bacteria 12/16/18 12/17/18 12/17/18 16:15 07:20 07:20 WBC 4.6 RBC 2.70 L Hgb 9.1 L Hct 27.1 L MCV 100.1 H MCH 33.7 MCHC 33.6 RDW 12.0 Plt Count 225 MPV 7.5 Absolute Neuts (auto) 3.1 Neutrophils % 66.3 Lymphocytes % 20.1 Monocytes % 8.3 Eosinophils % 4.7 H Basophils % 0.6 ESR Sodium 134 L Potassium 4.0 Chloride 99 Carbon Dioxide 24 Anion Gap 11 BUN 11.0 Creatinine 0.5 L Est GFR (CKD-EPI)AfAm 127.17 Est GFR (CKD-EPI)NonAf 109.72 Random Glucose 106 Calcium 8.4 L Magnesium 1.8 Iron TIBC Iron Saturation Ferritin Total Bilirubin 1.1 H AST 18 ALT 21 Alkaline Phosphatase 66 C-Reactive Protein Total Protein 6.3 L Albumin 2.8 L Urine Color Yellow Urine Appearance Clear Urine pH 7.0 Urine Protein Negative Urine Glucose (UA) Negative Urine Ketones Negative Urine Blood Trace-intact Urine Nitrite Negative Urine Bilirubin Negative Urine Urobilinogen 4.0 e.u/dl H Ur Leukocyte Esterase Negative Urine RBC 2-5 Urine WBC 0-2 Urine Bacteria Few Active Medications Generic Name Dose Route Start Last Admin Trade Name Freq PRN Reason Stop Dose Admin Acetaminophen 650 mg 12/12/18 20:17 12/16/18 18:59 Tylenol - PO 650 mg Q6H PRN Administration FEVER Apixaban 5 mg 12/12/18 22:00 12/16/18 21:24 Eliquis - PO 5 mg BID [facility] Administration Sodium Chloride 1,000 mls @ 42 mls/hr 12/16/18 19:00 12/16/18 21:24 Normal Saline - IV 42 mls/hr ASDIR [facility] Administration Levofloxacin 500 mg 12/17/18 17:00 Levaquin - PO DAILY@1700 [facility] Oxycodone HCl 5 mg 12/12/18 20:16 12/15/18 14:25 Roxicodone - PO 5 mg Q6H PRN Administration PAIN LEVEL 7 - 10 ASSESSMENT/PLAN-UPDATE TO DISCHARGE PLAN Patient was scheduled for discharge yesterday, 12/16/18. See discharge summary. Yesterday afternoon, patient spiked a fever. Antibiotic was switched to levofloxacin and she has gotten 2 doses. If patient remains afebrile we will discharge home later today. Visit type - Emergency Visit Emergency Visit: Yes ED Registration Date: 12/15/18 Care time: The patient presented to the Emergency Department on the above date and was hospitalized for further evaluation of their emergent condition. - New Patient This patient is new to me today: No - Critical Care Critical Care patient: No
[2018-12-17] MEDS: APIXABAN 5 MG TABLET PO SCH (10:38)
[2018-12-17 14:21] VITALS: BP 110/52; PULSE 113
[2018-12-17 14:22] VITALS: TEMP 100.9
== END 2018-12-17 16:53 | disposition home or self-care (01) | DRG 660 ==
LOC: FER 14:27 → FM/S 17:12 → OBSVTOIN 12-15 14:22
PROVIDERS: ADMIT Internal Medicine; ATTEND Nurse Practitioner Acute Care
DX: R50.82 Postprocedural fever (principal); C50.911 Malignant neoplasm of unspecified site of right female breast; Z17.1 Estrogen receptor negative status [ER-]; D70.9 Neutropenia, unspecified; J98.11 Atelectasis; D64.9 Anemia, unspecified; R59.0 Localized enlarged lymph nodes; R00.0 Tachycardia, unspecified; I96 Gangrene, not elsewhere classified; L76.82 Other postprocedural complications of skin and subcutaneous tissue
CPT/HCPCS: 36415; 71045-TC-FY; 71275-TC; 80048; 80053; 81003; 81015; 82728; 82803; 83540; 83550; 83605; 83615; 83735; 84439; 84443; 84480; 85025; 85379; 85610; 85651; 85730; 86140; 86480; 87040; 87086; 93005; 93970-TC; 99282-25; G0378; J7030

== ENCOUNTER 2018-12-26 06:09 | Day surgery (SDC) | payer OTHER ==
[2018-12-26] MEDS ORDERED: FERRIC CARBOXYMALTOSE 750 MG in SODIUM CHLORIDE 250 ML IVPB ONE (09:00)
[2018-12-26 10:55] LABS: BASO % 0.9 % (0-2.0); HEMOGLOBIN 8.3 GM/dL (10.7-15.3); LYMPH % 28.9 % (8-40); MCH 31.8 pg (25.7-33.7); MEAN CELL VOLUME 96.4 fl (80-96); MONO % 14.9 % (3.8-10.2); NEUT % 49.3 % (42.8-82.8); PLATELET COUNT 322 K/MM3 (134-434); RDW 13.5 % (11.6-15.6); WHITE BLOOD COUNT 2.9 K/mm3 (4.0-10.0)
[2018-12-26] MEDS ORDERED: DEXAMETHASONE SOD PHOSPHATE 10 MG/1 ML VIAL ONE (11:51)
[2018-12-26 12:00] LABS: ERYTHROCYTE SEDIMENTATION RATE 121 mm/hr (0-30)
[2018-12-26] MEDS ORDERED: DEXAMETHASONE SOD PHOSPHATE 10 MG/1 ML VIAL IVPB ONE (12:00)
[2018-12-26 13:54] VITALS: TEMP 97.9
[2018-12-26 14:06] VITALS: BP 96/56; PULSE 86
== END 2018-12-26 13:30 | disposition home or self-care (01) ==
LOC: JONCNONCHE 06:09 → J7W 11:25 → JONCNONCHE 13:30
PROVIDERS: ATTEND Internal Medicine Hematology & Oncology
PROC: 3E033GC Introduction of Other Therapeutic Substance into Peripheral Vein, Percutaneous Approach (ICD-10-PCS; principal; 2018-12-26)
DX: C50.919 Malignant neoplasm of unspecified site of unspecified female breast (principal); Z90.13 Acquired absence of bilateral breasts and nipples
CPT/HCPCS: 36415; 82728; 85025; 85651; 86850; 86900; 86901; 96365; 96375; J1100; J1439

== ENCOUNTER 2019-01-02 06:35 | Day surgery (SDC) | payer OTHER ==
[2019-01-02] MEDS ORDERED: FERRIC CARBOXYMALTOSE 750 MG in SODIUM CHLORIDE 250 ML IVPB ONE (09:00)
[2019-01-02 11:34] LABS: BASO % 0.9 % (0-2.0); EOS % 5.9 % (0-4.5); HEMATOCRIT 31.3 % (32.4-45.2); HEMOGLOBIN 10.3 GM/dL (10.7-15.3); LYMPH % 42.2 % (8-40); MCH 32.5 pg (25.7-33.7); MEAN CELL VOLUME 98.5 fl (80-96); MEAN PLT VOLUME 7.3 fl (7.5-11.1); MONO % 14.9 % (3.8-10.2); NEUT % 36.1 % (42.8-82.8); PLATELET COUNT 299 K/MM3 (134-434); RBC 3.18 M/mm3 (3.60-5.2); RDW 14.8 % (11.6-15.6); WHITE BLOOD COUNT 3.2 K/mm3 (4.0-10.0)
[2019-01-02 11:57] LABS: ALBUMIN 3.5 g/dl (3.4-5.0); BILIRUBIN,DIRECT 0.1 mg/dL (0.0-0.2); BILIRUBIN,TOTAL 0.5 mg/dL (0.2-1); BLOOD UREA NITROGEN 7.8 mg/dL (7-18); CALCIUM 9.2 mg/dL (8.5-10.1); CREATININE 0.5 mg/dL (0.55-1.3); POTASSIUM 4.5 mmol/L (3.5-5.1); TOT PROT 7.9 g/dl (6.4-8.2)
[2019-01-02] MEDS ORDERED: DEXAMETHASONE SOD PHOSPHATE 10 MG/1 ML VIAL IVPB ONE (12:06)
[2019-01-02 13:33] LABS: ERYTHROCYTE SEDIMENTATION RATE 90 mm/hr (0-30)
[2019-01-02 16:44] VITALS: TEMP 98.3
[2019-01-02 16:45] VITALS: BP 109/62; PULSE 88
== END 2019-01-02 14:55 | disposition home or self-care (01) ==
LOC: JONCNONCHE 06:35 → J7W 12:19 → JONCNONCHE 14:55
PROVIDERS: ATTEND Internal Medicine Hematology & Oncology
PROC: 3E033GC Introduction of Other Therapeutic Substance into Peripheral Vein, Percutaneous Approach (ICD-10-PCS; principal; 2019-01-02)
DX: D50.9 Iron deficiency anemia, unspecified (principal); C50.919 Malignant neoplasm of unspecified site of unspecified female breast
CPT/HCPCS: 36415; 80048; 80053; 80076; 83615; 85025; 85651; 86140; 96365; J1100; J1439

== ENCOUNTER 2019-06-02 06:21 | Inpatient (IN) | payer OTHER ==
[2019-06-01 09:14] VITALS: BMI 28.0
[2019-06-02 07:11] LABS: INR 1.12 (0.83-1.09); PROTHROMBIN TIME (PATIENT) 13.2 SEC (9.7-13.0)
[2019-06-02] MEDS ORDERED: HEPARIN NA (PORCINE) 5,000 UNITS/ML 1ML VIAL ONE ×2 (07:24→07:34)
[2019-06-02] MEDS ORDERED: BUPIVACAINE LIPOSOME/PF (EXPAREL) 266 MG/20 ML VIAL ONE (07:24)
[2019-06-02] MEDS ORDERED: LIDOCAINE HCL 4% PRESERVE-FREE 5 ML AMP ONE (07:26)
[2019-06-02] MEDS ORDERED: MIDAZOLAM HCL 2 MG/2 ML SINGLE DOSE VIAL ONE (07:33)
[2019-06-02] MEDS ORDERED: fentaNYL CITRATE 250 MCG/5 ML VIAL ONE ×3 (07:33→13:43)
[2019-06-02] MEDS ORDERED: SUCCINYLCHOLINE CHLORIDE 200 MG/10 ML SYRINGE ONE (07:33)
[2019-06-02] MEDS ORDERED: ROCURONIUM BROMIDE 50 MG/5 ML SYRINGE ONE ×2 (07:33→09:08)
[2019-06-02] MEDS ORDERED: PROPOFOL 20 ML ONE ×2 (07:33)
[2019-06-02] MEDS ORDERED: DEXAMETHASONE SOD PHOSPHATE 4 MG/1 ML VIAL ONE (07:40)
[2019-06-02] MEDS ORDERED: ceFAZolin SODIUM 1 GM VIAL ONE ×2 (08:42→22:25)
[2019-06-02] MEDS ORDERED: ceFAZolin SODIUM 1 GM VIAL IVPB ONE ×3 (08:45→15:30)
[2019-06-02] MEDS ORDERED: DESFLURANE GAS 240 ML BOTTLE IH ONE (09:06)
[2019-06-02] MEDS ORDERED: BUPIVACAINE LIPOSOME/PF (EXPAREL) 266 MG/20 ML VIAL NR ONE (12:37)
[2019-06-02] MEDS ORDERED: BACITRACIN 15 GM TUBE TOPICAL OINTMENT ONE (16:48)
[2019-06-02] MEDS ORDERED: HYDROmorphone HCL CARPU-JECT 2 MG/1 ML DISP.SYRIN IVPB PRN (17:21)
[2019-06-02] MEDS ORDERED: METOCLOPRAMIDE HCL INJECTION 10 MG/2 ML VIAL IVPB PRN (17:21)
[2019-06-02] MEDS ORDERED: ZOLPIDEM TARTRATE 5 MG TABLET PO PRN (17:21)
[2019-06-02] MEDS ORDERED: ONDANSETRON 4 MG/2 ML VIAL IVPUSH PRN (17:21)
[2019-06-02] MEDS ORDERED: PROCHLORPERAZINE MALEATE 25 MG SUPP.RECT PR PRN (17:21)
--- NOTE | 2019-06-02 17:42 | OPR ---
DATE OF OPERATION: 06/02/19 ATTENDING SURGEON: Jerome Bailey CO-SURGEON: Efraín Lehman COORDINATE MEASURING MACHINE TECHNICIAN: Mehdi Gallegos; Kimo Yoo PREOPERATIVE DIAGNOSIS: POSTOPERATIVE DIAGNOSIS: PROCEDURE PERFORMED: 1. Bilateral breast reconstruction with VERENICE (deep inferior epigastric perforators) flap. 2. Bilateral rib resection with additiional rib ressection on the left 3. Bilateral ligation of SIEV (superficial inferior epigastric vein). 4. Bilateral intercostal nerve block for postoperative pain relief. 5. Bilateral transversus abdominis plane block for postoperative pain relief. COMPLICATIONS: None. ESTIMATED BLOOD LOSS: 150 mL DESCRIPTION OF PROCEDURE: The patient was brought to the OR, placed in a supine position. Positioning was done with arms tucked prior to my arrival. A cazares catheter was placed, EH hose and SCD's are applied. She is given 2g ancef and 5000 units of SQ heparin. She is draped and prepped ins standard surgical fashion and time out is called. Patient, procedure, and side sites are verified. At the abdomen the previously marked ellipse of tissue from just above the umbilicus down to the pubic hairline was incised using a 15 blade scalpel. Dissection was carried down through the subcutaneous tissues using electrocautery, beveling away from the flap in order to increase the volume of the flap. At the right side, 6 cm off the midline, the superficial inferior epigastric artery and vein were identified. They were meticulously freed of all surrounding tissue, and they were traced down to their origin in the groin where they were ligated and divided and kept in continuity with the flap in case they were needed later in the flap for additional inflow or outflow to the flap. At the left side, 6 cm off the midline the left superficial inferior epigastric artery and vein were identified. Using microsurgical technique, they were meticulously dissected down to their origin in the groin where they were ligated and divided. They were kept in continuity with the left VERENICE flap in case they were needed later in the case for additional inflow or outflow to the flap. Attention was first paid to harvest of the right VERENICE flap. The right VERENICE flap was elevated in a lateral to medial direction using electrocautery until the lateral edge of the rectus abdominis sheath was encountered. At this point, meticulous dissection continued using bipolar cautery, and the dominant perforators to this side, that were identified preoperatively on the MRA, were identified and preserved and kept in continuity with the flap. The anterior rectus fascia was then incised in a superior and inferior direction, and a small cuff of fascia, less than 1 cm, was kept in continuity with the perforators and freed from the surrounding tissue. The perforators were then dissected free of all surrounding tissue. The rectus muscle was atraumatically split in line with its longitudinal fibers, and the perforators were followed down through the rectus muscle to the lateral main branch of the deep inferior epigastric artery. Two perforators were kept in continuity with the flap and dissected in this technique. The main pedicle was then traced back to its origin in the groin where all small branches along the way were clipped and divided. at the groin the takeoff of the deep inferior epigastric artery and vein were identified. On the right side, there was noted to be one large deep inferior epigastric artery and two accompanying large venae comitantes. A single green clamp was applied to the pedicle, medium automatic clips were placed around the deep inferior epigastric artery and two accompanying veins. They were then divided. Simultaneously, at the left chest, exposure of the internal mammary artery and vein was performed. The mastectomy pocket was thoroughly irrigated, all points of bleeding were stopped with electrocautery. The pectoralis major muscle was then divided in line with its longitudinal fibers overlying the third rib. Gelpi retractors were placed for exposure. The third rib was scored using electrocautery, and then, the perichondrium surrounding the cartilaginous portion of the third rib was elevated using a periosteal elevator. Then, 2 cm of cartilaginous portion of the rib were removed using a rongeur, and under loupe magnification, the posterior perichondrium was elevated using microsurgical technique and bipolar cautery. Meticulous dissection was performed, and the internal mammary artery and vein were identified. The internal mammary artery and vein were freed of all surrounding tissue for a total length of 2 cm in order to allow microsurgical anastomoses. On the left side an additional rib is removed in the same fashion in order to gain necessary length on the vessels. This dissection is connected to the original rib ressection. The operating microscope was brought into position on the left side. The right VERENICE flap was rotated 180 degrees. It was then placed at the right chest. It was sutured in position using 2-0 Vicryl sutures for temporary securing. The pedicle was placed in alignment with the internal mammary artery and vein. Under the operating microscope, the internal mammary vein had a single green clip applied proximally and a single green clip applied distally, and it was divided in the middle using straight microscissors. The vein lumen was irrigated and measured, and it was noted that a 2.5 -mm natural resources extension educator would fit well upon the internal mammary vein. The two veins of the flap pedicle were measured, and it was noted that 2.5 -mm natural resources extension educator would fit well upon each of these veins. The coupling device was loaded with a 2.5 -mm natural resources extension educator, which was lowered into the operative field under the operating microscope. The antegrade pedicle vein was brought up and through the coupling device. It was everted over the coupling spikes. It was secured in position using the J-Hole. The lumen was irrigated with heparinized saline solution, and the natural resources extension educator was lowered adjacent to the antegrade portion of the internal mammary vein, the cut end of which was brought up and through the coupling device, everted over the coupling spikes, secured in position using the J-Hole. The lumen was then irrigated with heparinized saline solution. It was noted to be in good position and free of debris. The natural resources extension educator was closed, creating a secured couple anastomosis. The single green clamp was removed, and there was noted to be excellent flow across the anastomosis. Attention was then paid to the retrograde vein. The veins were measured and a 2 mm natural resources extension educator was selected. The second vein of the pedicle was then brought up and through a 2 mm natural resources extension educator. It was everted over the coupling spikes. It was secured in position using the J-Hole. The natural resources extension educator was then lowered adjacent to the retrograde internal mammary vein, the cut end of which was brought up and through the coupling device, everted over the coupling spikes, and secured in position using the J-Hole. The lumens were irrigated, noted to be free of debris and in good position. The natural resources extension educator was closed, and a secured couple anastomosis was created. The single green clamp was removed, and there was noted to be excellent flow across the anastomosis. Attention was then paid to the arterial anastomosis. The pedicle artery was placed in alignment with the internal mammary artery. The internal mammary artery had a single green clamp applied proximally, and a medium automatic green clip applied distally, and it was divided using a straight microscissor. The lumen was irrigated and noted to be free of debris and healthy in appearance. The arterial artery of the flap was placed in alignment with the internal mammary artery, and a hand-sewn anastomosis was performed. The 8-0 nylon was used in an interrupted fashion to perform the hand-sewn anastomosis. The single green clamp was removed, and there was noted to be strong healthier flow across the anastomosis with a very strong audible signal using the hand-held Doppler. At this point, an implantable Doppler was placed for monitoring of the flap postoperatively. Using the Bettencourt dissector, a small window was created around the pedicle artery. The cuff of the implantable Doppler was passed around this. It was then secured in position using MicroClips and hooked to the Doppler box where there was noted to be a strong bounding signal within the pedicle artery. This was left attached to the Doppler box and monitored throughout the entirety of the rest of the case, and there was excellent flow throughout the entire rest of this case. The operating microscope was removed. Flap was gently placed within the mastectomy pocket while monitoring the entire time. There was noted to be excellent shape to the flap and the skin was temporarily closed using skin staplers, and attention was paid to reconstruction of the contralateral side. At the left abdomen, the left VERENICE flap was elevated in a lateral to medial direction using electrocautery until the lateral edge of the rectus abdominis muscle was encountered. Then, dissection continued using bipolar cautery in a meticulous fashion using loupe magnification, and the two dominant perforators identified on the preoperative MRA were encountered and preserved. They were circumferentially freed. An incision was made in the anterior rectus fascia in a superior and inferior direction. A small cuff of fascia was kept adherent to the perforators, approximately 1 cm in size. The perforators were followed down into the rectus muscle freeing all small branches as necessary. The rectus muscle was atraumatically split using Gelpi retractors, and the perforators were traced down to the left deep inferior epigastric artery pedicle. The pedicle was then traced down to its origin in the groin, clipping and dividing all small branches as necessary. At the groin, there was noted to be one large artery and two large venae comitantes. These were clipped with the medium automatic clip front sight attacher and divided. Simultaneous to this dissection, at the right chest, exposure of the internal mammary artery and vein was performed. The mastectomy pocket was irrigated, all points of bleeding were stopped with electrocautery. The pectoralis major muscle was divided overlying the third rib in line with its longitudinal fibers. The underlying third rib was exposed. The perichondrium was scored using electrocautery and then freed using a periosteal elevator. Then, 2 cm of cartilaginous portion of the rib were resected using a large rongeur. Under loupe magnification, the posterior perichondrium was elevated and the internal mammary artery and vein were identified. All small branches were divided, and the internal mammary artery and vein were exposed for a length of 2 cm in order to allow microsurgical anastomosis. The left VERENICE flap was rotated 180 degrees. It was placed at the left chest and temporarily secured in position using 2-0 Vicryl sutures. The pedicle of the flap was placed in alignment with the internal mammary artery and vein. The operating microscope was brought into position. Under the operating microscope, attention was first paid to the venous anastomosis. The internal mammary vein had a clip applied distally and a single green clamp applied Proximally and distally. It was then divided using straight microscissors. The lumen was measured, and noted to be 3 mm. The pedicle vein was measured and noted to be 3 mm. A coupling device was loaded with a 3 _ -mm natural resources extension educator. It was lowered into the operative field under the operating microscope. The cut end of the pedicle vein was brought up and through the natural resources extension educator, everted over the coupling spike, secured in position using the J-Hole. The lumen was irrigated with heparinized saline solution, and it was noted to be in good potion and free of all debris. The natural resources extension educator was lowered adjacent to the internal mammary vein antegrade portion, the cut end of which was brought up and through the coupling device, everted over the coupling spikes, secured in position using the J-Hole, irrigated with heparinized saline solution, noted to be free of debris and in good position. The natural resources extension educator was closed, creating a secured couple anastomosis. The single green clamp was removed, and there was noted to be excellent flow across the venous anastomosis. Attention was then paid to the retrograde vein. The veins were measured and a 2.5 mm natural resources extension educator was selected. The second vein of the pedicle was then brought up and through a 2.5 mm natural resources extension educator. It was everted over the coupling spikes. It was secured in position using the J-Hole. The natural resources extension educator was then lowered adjacent to the retrograde internal mammary vein, the cut end of which was brought up and through the coupling device, everted over the coupling spikes, and secured in position using the J-Hole. The lumens were irrigated, noted to be free of debris and in good position. The natural resources extension educator was closed, and a secured couple anastomosis was created. The single green clamp was removed, and there was noted to be excellent flow across the anastomosis. Attention was then paid to the arterial anastomosis. The internal mammary artery had a medium clip applied distally, a single green clamp applied proximally. It was then divided using straight microscissors. The lumen was irrigated and noted to be free of debris and healthy in appearance. The pedicle artery was placed in alignment with the internal mammary artery, and a hand-sewn anastomosis was performed using an 8-0 nylon suture in an interrupted fashion. After completion of the hand-sewn anastomosis, the single green clamp was removed, and there was noted to be excellent strong pulsatile flow across the arterial anastomosis and a bounding pedicle. The pedicle was interrogated using the hand-held Doppler. There was noted to be strong, healthy pulsatile flow. For postoperative monitoring, the decision was made to place an implantable Doppler. A small window was created around the pedicle artery using the Bettencourt dissector. The [employer] implantable Doppler cuff was passed around this and secured in position using MicroClips. The Doppler was hooked to the Doppler box, and it was noted to have a strong pulsatile signal. This was monitored throughout the entirety of the rest of the case. The operating microscope was then removed from the field. The flap was gently placed within the mastectomy cavity. The skin incisions were temporarily closed using skin staplers, and there was noted to be excellent shape and symmetry between the left and right breasts. Attention was then paid to closure of the left and right side. The left and right VERENICE flaps were appropriately shaped, recreating a beautiful natural lateral sweep to the breasts and a sharp inframammary fold. The skin paddle of the flaps was marked to replace the areola in a circular pattern. This was preserved. The rest of the skin along the flaps was deepithelialized using facelift scissors. The flaps were then inset in the appropriate position, and skin incisions were closed in multiple layers with 3-0 PDS as the deep layer and 4-0 Monocryl as the final running subcuticular closure. At the left and right side, prior to closure, an intercostalnerve block was performed using 0.25% Marcaine, 15 mL of 0.25% Marcaine was used on the left and 15 mL was used on the right, injecting small amounts of Marcaine adjacent to the intercostal nerve and rib space 2-7 in order to provide Postoperative pain relief. Prior to closing the incisions, a No. 19 Basilio drain was placed on the left and right side and brought out through a small separate stab wound incision. Attention was then paid to closure of the abdomen. The anterior rectus fascia including both the anterior layer and posterior layer of anterior rectus fascia was reapproximated using 0 PDS sutures in a figure-of-8 fashion with one suture placed every centimeter. After reapproximating the fascia, this was then overrun with a 0 V-Loc PDS suture in multiple layers in order to plicate and strengthen the closure. In the epigastric area, there was noted to be a small amount of bulging and a central plication was performed using a 0 V-Loc suture in a running fashion. The patient had an excellent shape to the abdomen after closure of the fascia, and the skin and subcutaneous flap was advanced in the inferior direction. A low transverse incision was then closed in multiple layers with 0 PDS as the first layer and 3-0 V-Loc as the final running subcuticular closure. The umbilicus was brought up to and out through an inverted V-shaped incision and inset using 4-0 Monocryl. At the abdomen prior to closure, a transversus abdominis plane block was performed at the left and right side using 0.25% Marcaine, 15 mL of Marcaine was introduced through multiple small injections in the transversus abdominis plane on the left and right side in order to provide postoperative pain relief; 15 mL of Marcaine was used on the left side, and 15 mL of Marcaine was used on the right side. Also, at the abdomen, a left and right 19 basilio abdominal drain was placed prior to closure. After closure of the incisions, sterile dressings were applied of 0.5-inch Steri-Strips to the incisions. The drains were placed to bulb suction,and the patient was awakened from anesthesia in stable condition. She tolerated the procedure well and there were no complications.
--- NOTE | 2019-06-02 17:43 | PN ---
Progress Note (short form) - Note Progress Note: Post op check: Comfortable with good pain control Flaps with good flow signals and color BISMARK's thin and functioning Will continue standard monitoring
[2019-06-02] MEDS: LACTATED RINGERS SOLUTION 1,000 ML IV SCH (18:15)
--- NOTE | 2019-06-02 20:34 | CONSULT ---
Consultation: REQUESTING PROVIDER: CONSULT REQUEST: We have been asked to medically evaluate this patient for post- op management. HISTORY OF PRESENT ILLNESS: 54yo F with PMH left and right breast cx s/p bilateral mastectomy (left breast mastectomy 2002, right breast mastectomy 12/09/18 at [facility] - [place], [place]), left breast implant 2007, now s/p 6 rounds carboplatin / docetaxel chemotherapy (last 10/29/18), presenting for bilateral breast reconstruction with VERENICE, now POD #0 with adequate pain control, JPs with seosanguinous drainage, oral hugger and SCDs in place, doppler probes with good pulse, flaps soft and well perfused. Denies pain, nausea, vomiting, SOB. Allergies: Piperacillin/tazobactam Meds: MVI Past medical history: As above Social history: Social Alcohol Use PCP: Dr. Zamora Oncologist: Dr. Finch Surgeon: Dr. Robertson, Dr. Baiely Procedures performed: 1. Bilateral breast reconstruction with VERENICE (deep inferior epigastric perforators) flap. 2. Bilateral rib resection with additiional rib ressection on the left. 3. Bilateral ligation of SIEV (superficial inferior epigastric vein). 4. Bilateral intercostal nerve block for postoperative pain relief. 5. Bilateral transversus abdominis plane block for postoperative pain relief. REVIEW OF SYSTEMS: As above PHYSICAL EXAMINATION Vital Signs - 24 hr 06/02/19 06/02/19 06/02/19 07:23 07:28 17:13 Temperature 98.2 F 97.5 F L Pulse Rate 80 98 H Respiratory 20 18 Rate Blood Pressure 105/73 110/59 L O2 Sat by Pulse 97 96 Oximetry (%) 06/02/19 06/02/19 06/02/19 17:25 17:40 17:55 Temperature Pulse Rate 90 86 83 Respiratory 14 16 14 Rate Blood Pressure 106/70 108/62 100/58 L O2 Sat by Pulse 100 100 100 Oximetry (%) 06/02/19 06/02/19 06/02/19 18:05 18:20 18:35 Temperature Pulse Rate 89 90 86 Respiratory 14 16 16 Rate Blood Pressure 103/56 L 97/46 L 103/45 L O2 Sat by Pulse 100 100 100 Oximetry (%) 06/02/19 06/02/19 06/02/19 18:50 19:05 19:20 Temperature Pulse Rate 90 87 92 H Respiratory 14 14 16 Rate Blood Pressure 105/50 L 103/45 L 112/67 O2 Sat by Pulse 100 100 100 Oximetry (%) 06/02/19 06/02/19 06/02/19 19:35 19:50 20:05 Temperature Pulse Rate 100 H 98 H 104 H Respiratory 16 14 14 Rate Blood Pressure 116/66 106/68 101/66 O2 Sat by Pulse 100 100 100 Oximetry (%) GENERAL: Awake, A&Ox3, in no acute distress. HEAD: Normal with no signs of trauma. EYES: Pupils equal, round and reactive to light, extraocular movements intact, sclera anicteric, conjunctiva clear. No lid lag. EARS, NOSE, THROAT: Ears externally normal, nares patent, oropharynx clear without exudates. Moist mucous membranes. LUNGS: Breath sounds equal, clear to auscultation bilaterally. No wheezes, and no crackles. No accessory muscle use. HEART: Tachycardic to 100-110s, normal S1 and S2 without murmur, rub or gallop, 2 doppler electrodes implanted with audible pulses. ABDOMEN: Dressing clean / dry / intact, 4x BISMARK drains in place with small volume serosanguinous drainage, abdominal binder in place. MUSCULOSKELETAL: Deferred UPPER EXTREMITIES: 2+ pulses, warm, well-perfused. No cyanosis. No clubbing. Cap refill <2 seconds. No peripheral edema. LOWER EXTREMITIES: 2+ pulses, warm, well-perfused. No peripheral edema. SCDs in place. NEUROLOGICAL: Cranial nerves II-XII grossly intact. Normal speech. Gait not assessed. PSYCHIATRIC: Cooperative. Good eye contact. Appropriate mood and affect. SKIN: Warm, dry, no rashes or lesions noted, surgical flaps soft, warm, well- perfused. Laboratory Results - last 24 hr 06/02/19 06/02/19 06:32 06:32 PT with INR 13.20 H INR 1.12 H Blood Type O POSITIVE Antibody Screen Negative Active Medications Generic Name Dose Route Start Last Admin Trade Name Freq PRN Reason Stop Dose Admin Aspirin 325 mg 06/03/19 10:00 Asa - PO DAILY ABEL Fentanyl 50 mcg 06/02/19 16:48 06/02/19 19:30 Sublimaze Injection - IVPUSH 50 mcg [id number] PRN Administration PAIN-PACU ORDER X 4 DOSES ONLY Heparin Sodium (Porcine) 5,000 unit 06/02/19 22:00 Heparin - SQ BID ABEL Hydromorphone HCl 2 mg 06/02/19 18:48 Dilaudid Vial - IVPB Q3H PRN PAIN SCALE 7-10 Lactated Ringer's 1,000 mls @ 125 mls/hr 06/02/19 17:00 Lactated Ringers Solution IV ASDIR ABEL Cefazolin Sodium 1 gm in 50 mls @ 100 mls/hr 06/02/19 23:00 Ancef 1 Gm Premixed Ivpb - IVPB Q8H ABEL Potassium Chloride/Dextrose/Sod Cl 10 meq in 1,000 mls @ 150 mls/hr 06/02/19 17:30 D5-1/2ns+10 Meq Kcl - IV 06/03/19 17:29 ASDIR ABEL Metoclopramide HCl 10 mg 06/02/19 17:21 Reglan Injection - IVPB Q6H PRN NAUSEA AND/OR VOMITING Morphine Sulfate 3 mg 06/02/19 17:21 Morphine Sulfate IVPUSH Q3H PRN PAIN SCALE 1-5 Ondansetron HCl 4 mg 06/02/19 17:21 Zofran Injection IVPUSH Q6H PRN NAUSEA AND/OR VOMITING Prochlorperazine Maleate 25 mg 06/02/19 17:21 Compazine Suppository - [place] Q12H PRN NAUSEA AND/OR VOMITING Zolpidem Tartrate 5 mg 06/02/19 17:21 Ambien - PO HS PRN INSOMNIA ASSESSMENT/PLAN: 54yo F with PMH left and right breast cx s/p bilateral mastectomy (left breast mastectomy 2002, right breast mastectomy 12/09/18 at [facility] - [place], [place]), left breast implant 2007, now s/p 6 rounds carboplatin / docetaxel chemotherapy (last 10/29/18), presenting for bilateral breast reconstruction with VERENICE, now POD #0. Progressing appropriately. #Neuro: Post-op analgesia - A&Ox3 at baseline - Pain control per surgical team - S/p Exparel, Nerve block - S/p fentanyl at 7:30PM - Dilaudid and Morphine PRNs - Home ambien 5mg qHS #CV: MARYAN, monitoring for thrombus formation / graft failure - Monitor vitals, continuous cardiac monitoring - Q1H doppler pulse checks and flap inspection #Pulm: MARYAN, currently on NC for comfort with 100% O2 Sat - Encourage ISS use - Maintain O2 Sat > 92% #Renal: MARYAN - Monitory I&Os, Espitia, 4x BISMARK drains - Trend lytes, replete as necessary - Trend BUN/Cr - S/p 4L IVF intraoperatively - Continue D5 NS at 150 per surgical team #ID: MARYAN - Anceph x2 intraop, third dose due at 11:00PM - Monitor for fever / leukocytosis #GI: MARYAN - Ice chips, will advance per surgery - Zosyn, reglan, compazine PRNs for nausea / vomiting #Endo: MARYAN #PPX: - SCDs/TEDs - Oral Hugger - Heparin / ASA #Dispo: - Continue ICU monitoring, disposition per surgery team - We will continue to follow the patient - Thank you for this consultative opportunity Visit type - Emergency Visit Emergency Visit: No - New Patient This patient is new to me today: Yes Date on this admission: 06/02/19 - Critical Care Critical Care patient: Yes Total Critical Care Time (in minutes): 36 Critical Care Statement: The care of this patient involved high complexity decision making to prevent further life threatening deterioration of the patient 's condition and/or to evaluate & treat vital organ system(s) failure or risk of failure. ATTENDING PHYSICIAN STATEMENT I saw and evaluated the patient. I reviewed the resident's note and discussed the case with the resident. I agree with the resident's findings and plan as documented. SUBJECTIVE: OBJECTIVE: ASSESSMENT AND PLAN:
[2019-06-02] MEDS: D5-1/2NS+10 MEQ KCL - 10 MEQ/1,000 ML INFUS.BAG IV SCH (20:40)
[2019-06-02] MEDS ORDERED: HEPARIN NA (PORCINE) 5,000 UNITS/ML 1ML VIAL SQ SCH (22:00)
[2019-06-02] MEDS ORDERED: DEXTROSE 5%-WATER - 50 ML IVPB ONE (22:26)
[2019-06-02] MEDS: CEFAZOLIN 1 GM in DEXTROSE 5%-WATER - 50 ML IVPB SCH (22:33)
[2019-06-03] MEDS: D5-1/2NS+10 MEQ KCL - 10 MEQ/1,000 ML INFUS.BAG IV SCH (00:14)
[2019-06-03] MEDS: MORPHINE SULFATE 2 MG/ML VIAL IVPUSH PRN ×2 (00:15→15:16)
[2019-06-03] MEDS ORDERED: SODIUM CHLORIDE 500 ML IV STA ×2 (01:18→01:43)
[2019-06-03] MEDS ORDERED: PIPERACILLIN/TAZOB 2.25 GM 2.25 GM in DEXTROSE 5%-WATER - 50 ML IVPB ONE (01:45)
[2019-06-03] MEDS ORDERED: SODIUM CHLORIDE 1,000 ML IV STA ×2 (02:24→04:14)
[2019-06-03 05:23] LABS: BASO % 0.2 % (0-2.0); EOS % 0.1 % (0-4.5); HEMATOCRIT 21.1 % (32.4-45.2); HEMOGLOBIN 7.2 GM/dL (10.7-15.3); LYMPH % 18.3 % (8-40); MCH 33.7 pg (25.7-33.7); MCHC 34.1 g/dl (32.0-36.0); MEAN CELL VOLUME 98.8 fl (80-96); MEAN PLT VOLUME 7.4 fl (7.5-11.1); MONO % 10.8 % (3.8-10.2); NEUT % 70.6 % (42.8-82.8); PLATELET COUNT 142 K/MM3 (134-434); RBC 2.14 M/mm3 (3.60-5.2); RDW 12.9 % (11.6-15.6); WHITE BLOOD COUNT 7.8 K/mm3 (4.0-10.0)
[2019-06-03 05:29] LABS: INR 1.39 (0.83-1.09); PROTHROMBIN TIME (PATIENT) 16.4 SEC (9.7-13.0)
[2019-06-03] MEDS ORDERED: DEXTROSE 5%-WATER - 50 ML IVPB ONE ×2 (05:42→16:01)
[2019-06-03] MEDS ORDERED: ceFAZolin SODIUM 1 GM VIAL ONE ×2 (05:42→16:01)
[2019-06-03 05:52] LABS: ALBUMIN 2.1 g/dl (3.4-5.0); BILIRUBIN,TOTAL 0.6 mg/dL (0.2-1); BLOOD UREA NITROGEN 14.6 mg/dL (7-18); CREATININE 0.5 mg/dL (0.55-1.3); MAGNESIUM 1.5 mg/dL (1.8-2.4); PHOSPHOROUS 2.8 mg/dL (2.5-4.9); TOT PROT 3.9 g/dl (6.4-8.2)
[2019-06-03 05:57] LABS: CALCIUM 6.9 mg/dL (8.5-10.1)
[2019-06-03] MEDS: CEFAZOLIN 1 GM in DEXTROSE 5%-WATER - 50 ML IVPB SCH ×2 (06:51→16:31)
--- NOTE | 2019-06-03 08:41 | PN ---
Physical Exam: SUBJECTIVE: Patient seen and examined. Doing well, complaining of some chest pain. Seen by Dr. Bailey due to concern for bleeding. Returned to the OR and had a 100cc hematoma evacuated. Will continue to monitor CBC, 2 units PRBC transfused. OBJECTIVE: Vital Signs Period Temp Pulse Resp BP Sys/Wolf Pulse Ox Last 24 Hr 97.5 F-101.8 F 83-137 11-21 83-130/42-70 96-100 GENERAL: The patient is awake, alert, and fully oriented, in no acute distress. HEAD: Normal with no signs of trauma. EYES: EOMI ENT: moist mucous membranes NECK: Trachea midline, supple LUNGS: Breath sounds equal, clear to auscultation bilaterally, no wheezes, no crackles, no accessory muscle use. HEART: Tachycardic, S1, S2 without murmur, rub or gallop. ABDOMEN: mild diffuse tenderness to palpation. BISMARK drains in place x4 with serosanguinous drainage. Abd binder in place EXTREMITIES: 2+ pulses, warm, well-perfused, no edema. NEUROLOGICAL:Normal speech, gait not observed. SKIN: skin flaps soft, warm, slightly purple on left side and enlarged. Dopplerable pulses bilaterally over skin flaps Laboratory Results - last 24 hr 06/02/19 06/03/19 06/03/19 06:32 04:45 04:45 WBC RBC Hgb Hct MCV MCH MCHC RDW Plt Count MPV Absolute Neuts (auto) Neutrophils % Lymphocytes % Monocytes % Eosinophils % Basophils % Nucleated RBC % PT with INR INR Sodium Potassium Chloride Carbon Dioxide Anion Gap BUN Creatinine Est GFR (CKD-EPI)AfAm Est GFR (CKD-EPI)NonAf Random Glucose Lactic Acid Calcium Phosphorus Magnesium Total Bilirubin AST ALT Alkaline Phosphatase Total Protein Albumin Ur Random Creatinine 149.0 Ur Random Sodium 75 Blood Type O POSITIVE Antibody Screen Negative Crossmatch See Detail 06/03/19 06/03/19 06/03/19 05:00 05:00 05:00 WBC 7.8 RBC 2.14 L Hgb 7.2 L Hct 21.1 L D MCV 98.8 H MCH 33.7 MCHC 34.1 RDW 12.9 Plt Count 142 D MPV 7.4 L Absolute Neuts (auto) 5.5 Neutrophils % 70.6 D Lymphocytes % 18.3 D Monocytes % 10.8 H Eosinophils % 0.1 D Basophils % 0.2 Nucleated RBC % 0 PT with INR 16.40 H INR 1.39 H Sodium 144 Potassium 4.0 Chloride 112 H Carbon Dioxide 26 Anion Gap 6 L BUN 14.6 Creatinine 0.5 L Est GFR (CKD-EPI)AfAm 126.28 Est GFR (CKD-EPI)NonAf 108.96 Random Glucose 128 H Lactic Acid Calcium 6.9 L* Phosphorus 2.8 Magnesium 1.5 L Total Bilirubin 0.6 AST 19 ALT 21 Alkaline Phosphatase 47 Total Protein 3.9 L Albumin 2.1 L Ur Random Creatinine Ur Random Sodium Blood Type Antibody Screen Crossmatch 06/03/19 05:00 WBC RBC Hgb Hct MCV MCH MCHC RDW Plt Count MPV Absolute Neuts (auto) Neutrophils % Lymphocytes % Monocytes % Eosinophils % Basophils % Nucleated RBC % PT with INR INR Sodium Potassium Chloride Carbon Dioxide Anion Gap BUN Creatinine Est GFR (CKD-EPI)AfAm Est GFR (CKD-EPI)NonAf Random Glucose Lactic Acid 1.5 Calcium Phosphorus Magnesium Total Bilirubin AST ALT Alkaline Phosphatase Total Protein Albumin Ur Random Creatinine Ur Random Sodium Blood Type Antibody Screen Crossmatch Active Medications Generic Name Dose Route Start Last Admin Trade Name Freq PRN Reason Stop Dose Admin Acetaminophen 1,000 mg 06/03/19 01:43 Ofirmev Injection - IVPB Q6H PRN FEVER Aspirin 325 mg 06/03/19 10:00 Asa - PO DAILY ABEL Fentanyl 50 mcg 06/02/19 16:48 06/02/19 20:30 Sublimaze Injection - IVPUSH 50 mcg [id number] PRN Administration PAIN-PACU ORDER X 4 DOSES ONLY Hydromorphone HCl 2 mg 06/02/19 18:48 Dilaudid Vial - IVPB Q3H PRN PAIN SCALE 7-10 Lactated Ringer's 1,000 mls @ 125 mls/hr 06/02/19 17:00 06/02/19 18:15 Lactated Ringers Solution IV 1,000 mls ASDIR ABEL Administration Cefazolin Sodium 1 gm/ 50 mls @ 100 mls/hr 06/02/19 23:00 06/03/19 06:51 Dextrose IVPB 06/03/19 22:59 100 mls/hr Q8H ABEL Administration Potassium Chloride/Dextrose/Sod Cl 10 meq in 1,000 mls @ 150 mls/hr 06/02/19 17:30 06/03/19 00:14 D5-1/2ns+10 Meq Kcl - IV 06/03/19 17:29 150 mls/hr ASDIR ABEL Administration Metoclopramide HCl 10 mg 06/02/19 17:21 Reglan Injection - IVPB Q6H PRN NAUSEA AND/OR VOMITING Morphine Sulfate 3 mg 06/02/19 17:21 06/03/19 00:15 Morphine Sulfate IVPUSH 3 mg Q3H PRN Administration PAIN SCALE 1-5 Ondansetron HCl 4 mg 06/02/19 17:21 Zofran Injection IVPUSH Q6H PRN NAUSEA AND/OR VOMITING Prochlorperazine Maleate 25 mg 06/02/19 17:21 Compazine Suppository - [place] Q12H PRN NAUSEA AND/OR VOMITING Zolpidem Tartrate 5 mg 06/02/19 17:21 Ambien - PO HS PRN INSOMNIA ASSESSMENT/PLAN: 54 y/o/f with PMHx of left and right breast cx s/p bilateral mastectomy (left breast mastectomy 2002, right breast mastectomy 12/09/18 at [facility] ), left breast implant 2007, now s/p 6 rounds carboplatin / docetaxel chemotherapy (last 10/29/18), presenting for bilateral breast reconstruction with VERENICE, now POD#1. #Neuro - A&Ox3 at baseline - Pain control per surgical team - Dilaudid and Morphine PRNs - Home ambien 5mg qHS #CV - monitoring for thrombus formation / graft failure. dopplerable pulses bilaterally over skin flaps - Monitor vitals, continuous cardiac monitoring - Q1H doppler pulse checks and flap inspection - Hgb/Hct at 7.2/21.1 this morning. Seen by Dr. Bailey due to concern for bleeding. Returned to OR and had 100cc hematoma evacuated. No anastamotic problems seen, flap trimmed and re-inserted. - S/P 2 Units PRBC. Monitor H&H. Transfuse as needed. #Pulm - currently on NC for comfort with 100% O2 Sat - Encourage ISS use - Maintain O2 Sat > 92% #Renal - Monitory I&Os, Espitia, 4x BISMARK drains - Trend lytes, replete as necessary - Trend BUN/Cr #ID - Ancef x3 - WBC at 7.8 - Febrile during blood transfusion, ID consulted per request by Heme/Onc - Cefazolin IV Q8 per surgery - Tylenol for fever #GI - Ice chips, will advance per surgery - Zosyn, reglan, compazine PRNs for nausea/vomiting #PPX - SCDs/TEDs - Opal Hugger - holding Heparin due to bleeding risk. #FEN - LR @ 125mls/hr - Diet as per surgery. NPO except for meds now #Dispo - Continue ICU monitoring, disposition per surgery team Visit type - Emergency Visit Emergency Visit: No - New Patient This patient is new to me today: Yes Date on this admission: 06/03/19 - Critical Care Critical Care patient: Yes Total Critical Care Time (in minutes): 36 Critical Care Statement: The care of this patient involved high complexity decision making to prevent further life threatening deterioration of the patient 's condition and/or to evaluate & treat vital organ system(s) failure or risk of failure. ATTENDING PHYSICIAN STATEMENT I saw and evaluated the patient. I reviewed the resident's note and discussed the case with the resident. I agree with the resident's findings and plan as documented. SUBJECTIVE: OBJECTIVE: ASSESSMENT AND PLAN:
[2019-06-03] MEDS ORDERED: PROPOFOL 20 ML ONE ×3 (09:12→10:21)
[2019-06-03] MEDS ORDERED: LIDOCAINE HCL/PF 2% SDV 5ML VIAL ONE (09:12)
[2019-06-03] MEDS ORDERED: MIDAZOLAM HCL 2 MG/2 ML SINGLE DOSE VIAL ONE (09:14)
[2019-06-03] MEDS ORDERED: ROCURONIUM BROMIDE 50 MG/5 ML SYRINGE ONE (09:14)
[2019-06-03] MEDS ORDERED: DESFLURANE GAS 240 ML BOTTLE IH ONE (09:23)
[2019-06-03] MEDS ORDERED: SEVOFLURANE 250 ML BTL ONE (09:23)
[2019-06-03] MEDS ORDERED: ceFAZolin 2 GRAM PREMIX BAG IVPB ONE (09:35)
[2019-06-03] MEDS ORDERED: HEPARIN NA (PORCINE) 5,000 UNITS/ML 1ML VIAL ONE (09:46)
[2019-06-03] MEDS ORDERED: ePHEDrine SULFATE 50 MG/1 ML AMPULE ONE (09:48)
[2019-06-03] MEDS ORDERED: LIDOCAINE HCL 4% PRESERVE-FREE 5 ML AMP ONE (09:48)
[2019-06-03] MEDS ORDERED: ASPIRIN 325 MG TABLET PO SCH (10:00)
[2019-06-03] MEDS ORDERED: LIDOCAINE HCL 4% PRESERVE-FREE 5 ML AMP NR ONE (10:19)
[2019-06-03] MEDS ORDERED: NEOSTIGMINE METHYLSULFATE 0.5 MG/ML - 10 ML MDV ONE (10:20)
[2019-06-03] MEDS ORDERED: GLYCOPYRROLATE 0.2 MG/1 ML VIAL ONE (10:20)
--- NOTE | 2019-06-03 11:01 | PN ---
Progress Note (short form) - Note Progress Note: POD 1 Called at 6 AM regarding HCT 21 with patient symptomatic. Tachycardic with slightly purple left breast on mastectomy skin and flap and left side enlarged. BISMARK output on the left side is darker blood. Low UOP overnight having received 3 L LR. Patient counseled on need to return to OR for evacuation of hematoma and exploration of pedicle. RBA discussed and understood. Transfuse 2u PPRBC, continue IVF, recheck CBC at 1600 and possibly transfuse further if necessary. Patient taken to OR. 100cc hematoma evacuated and pedicle explored. No anastamotic problem, flap trimmed and re-inset.
--- NOTE | 2019-06-03 12:05 | PN ---
Teaching Attending Note Name of Resident: Tamera Briseno ATTENDING PHYSICIAN STATEMENT I saw and evaluated the patient. I reviewed the resident's note and discussed the case with the resident. I agree with the resident's findings and plan as documented. SUBJECTIVE: Pt seen and examined in the ICU. s/p hematoma evacuation. No active bleeding noted. OBJECTIVE: Vital Signs Period Temp Pulse Resp BP Sys/Wolf Pulse Ox Last 24 Hr 97.5 F-101.8 F 83-137 11-21 83-130/42-70 96-100 Intake & Output 05/31/19 06/01/19 06/02/19 06/03/19 23:59 23:59 23:59 23:59 Intake Total 5300 6380 Output Total 975 1563 Balance 4325 4817 Weight 71.668 kg Gen: NAD at rest Heart: RRR Lung: decreased breath sounds at the bases Abd: soft, dressings intact Ext: no edema CBC, BMP 06/03/19 05:00 06/03/19 05:00 Active Medications Acetaminophen (Ofirmev Injection -) 1,000 mg IVPB Q6H PRN PRN Reason: FEVER Fentanyl (Sublimaze Injection -) 50 mcg IVPUSH [id number] PRN PRN Reason: PAIN-PACU ORDER X 4 DOSES ONLY Last Admin: 06/02/19 20:30 Dose: 50 mcg Hydromorphone HCl (Dilaudid Vial -) 2 mg IVPB Q3H PRN PRN Reason: PAIN SCALE 7-10 Lactated Ringer's (Lactated Ringers Solution) 1,000 mls @ 125 mls/hr IV ASDIR ABEL Last Admin: 06/02/19 18:15 Dose: 1,000 mls Cefazolin Sodium 1 gm/ (Dextrose) 50 mls @ 100 mls/hr IVPB Q8H ABEL Stop: 06/03/19 22:59 Last Admin: 06/03/19 06:51 Dose: 100 mls/hr Potassium Chloride/Dextrose/Sod Cl (D5-1/2ns+10 Meq Kcl -) 10 meq in 1,000 mls @ 150 mls/hr IV ASDIR ABEL Stop: 06/03/19 17:29 Last Admin: 06/03/19 00:14 Dose: 150 mls/hr Metoclopramide HCl (Reglan Injection -) 10 mg IVPB Q6H PRN PRN Reason: NAUSEA AND/OR VOMITING Morphine Sulfate (Morphine Sulfate) 3 mg IVPUSH Q3H PRN PRN Reason: PAIN SCALE 1-5 Last Admin: 06/03/19 00:15 Dose: 3 mg Ondansetron HCl (Zofran Injection) 4 mg IVPUSH Q6H PRN PRN Reason: NAUSEA AND/OR VOMITING Prochlorperazine Maleate (Compazine Suppository -) 25 mg NC Q12H PRN PRN Reason: NAUSEA AND/OR VOMITING Zolpidem Tartrate (Ambien -) 5 mg PO HS PRN PRN Reason: INSOMNIA ASSESSMENT AND PLAN: s/p Bilateral Breast Reconstruction with VERENICE flap/Bilateral Rib Resections/ Bilateral SIEV ligations h/o Breast Ca Anemia - pain control - incentive spirometry - monitor H/H - transfuse as needed - monitor drain output - flap monitoring - IVF - PO per surgery - DVT prophylaxis - continue ICU monitoring
[2019-06-03] MEDS ORDERED: MAGNESIUM SULF 50% (8.12 MEQ/2 ML-1 GM VIAL) IVPB ONE (13:54)
[2019-06-03 14:10] LABS: HEMOGLOBIN 9.8 GM/dL (10.7-15.3); MEAN PLT VOLUME 7.4 fl (7.5-11.1)
[2019-06-03 14:15] LABS: HEMATOCRIT 28.3 % (32.4-45.2); MCH 32.2 pg (25.7-33.7); MCHC 34.7 g/dl (32.0-36.0); MEAN CELL VOLUME 92.8 fl (80-96); PLATELET COUNT 117 K/MM3 (134-434); RBC 3.05 M/mm3 (3.60-5.2); RDW 16.7 % (11.6-15.6); WHITE BLOOD COUNT 8.4 K/mm3 (4.0-10.0)
--- NOTE | 2019-06-03 14:27 | OP ---
DATE OF OPERATION: 06/03/2019 TITLE OF OPERATION: 1. Emergent return to the operating room on postoperative day one for threatened left deep flap breast reconstruction and hematoma. Evacuation of hematoma left reconstructed breast. 2. Exploration and ligation of bleeding superficial inferior epigastric vein. 3. Revision of left breast reconstruction by trimming borders of the deep inferior epigastric artery steel pan form placing supervisor flap and modifying deepithelialization of the inset flap and repositioning the pectoralis major muscle in order for re-inset of deep inferior epigastric artery steel pan form placing supervisor flap. ATTENDING SURGEON: Jerome Bailey MD CO-SURGEON: Efraín Lehman MD PREOPERATIVE DIAGNOSIS: Hematoma to the left breast reconstruction with threatened and congested left breast deep inferior epigastric artery steel pan form placing supervisor flap with areas of hypoperfusion. POSTOPERATIVE DIAGNOSIS: Hematoma to the left breast reconstruction with threatened and congested left breast deep inferior epigastric artery steel pan form placing supervisor flap with areas of hypoperfusion. The patient is seen in the ICU. The morning prior to surgery we were called to see the patient on account of a low hematocrit, as well as increasing size and ecchymosis on the left chest. Risks, benefits and alternatives are discussed with the patient regarding re-exploration of the left breast wound and re-inset and modification of the flap. She understands and agrees to proceed. PROCEDURE: Patient is given 2 units of packed red blood cells, the first of which was given in ICU, the 2nd of which is given in the operating room. She is positioned by the surgical and anesthesia teams. Sequential compression stockings and EH hose were applied. A Espitia catheter had been in the patient. She was prepped and draped in standard surgical fashion and a timeout was called. Patient, procedure, sides and sites are verified. At this point, the skin paddle is disconnected from the mastectomy flaps. A plane was dissected between the free flap and the surrounding mastectomy skin and the underlying pectoralis major muscle. A 100 mL hematoma is evacuated from the pocket. The superficial inferior epigastric vein on the flap in the chest was found to be bleeding and is dissected under high power loop magnification, is clip ligated. The pedicle was then explored under loop magnification and a clearly patent arterial and 2 clearly patent venous anastomoses are seen with good flow across both anastomoses. A hand held Doppler was used to assess the flow in the pedicle. The artery and both veins were able to be assessed independently, all with excellent flow. The pectoralis major muscle is incised further to allow for more space for the pedicle to prevent kinking and congestion. The flap is re-oriented 180 degrees to allow for a more gentle inset and less tortuosity to the pedicle. The flap tolerated this repositioning. The areas of congestion on the flap and hypoperfusion are identified along its perimeter. This flap is noted to be larger on the contralateral side and this hypoperfused fat is excised. The skin paddle was modified by additional deepithelialization in order to inset in this new rotation position. The inset is then performed with the flap gently laying back into the mastectomy wound defect without tension. The skin paddle was then sewn to the mastectomy skin first with a series of deep dermal 3-0 Monocryl suture, followed by a running mid dermal 3-0 PDS V-Loc suture. Laterally, the mastectomy wound is closed in a VY closure with primary closure of the donor site Y limb with a series of deep dermal 3-0 Monocryl suture, followed by a running mid dermal 3-0 V-Loc suture. A size 19 round Basilio drain is brought out through the lateral stab wound incision, placed to bulb suction. There is good audible Doppler flow signals, both the left and the right sides. Flap color is good. It should be noted that during the deepithelialization process the bleeding from the fresh dermis is bright red and slow without any signs of congestion at the new inset. Patient is awoken from anesthesia, maintained in a flexed position, transferred to her hospital bed and to the ICU without complication. The flaps are checked after transfer with good flow signals and color. Darlene [id number]
[2019-06-03 16:52] LABS: HEMATOCRIT 27.7 % (32.4-45.2); HEMOGLOBIN 9.7 GM/dL (10.7-15.3); MCH 32.5 pg (25.7-33.7); MEAN CELL VOLUME 92.9 fl (80-96); MEAN PLT VOLUME 7.5 fl (7.5-11.1); PLATELET COUNT 109 K/MM3 (134-434); RBC 2.98 M/mm3 (3.60-5.2); RDW 17.3 % (11.6-15.6)
[2019-06-03] MEDS: LACTATED RINGERS SOLUTION 1,000 ML IV SCH (17:30)
[2019-06-03] MEDS ORDERED: PT OWN MED DRAWER 7, Y5N ONE (18:09)
[2019-06-03] MEDS: CEFEPIME 2 GM in DEXTROSE 5%-WATER 100 ML IVPB SCH (18:30)
[2019-06-03] MEDS: VANCOMYCIN 1 GRAM (PRE-DOCKED) 1,000 MG/250 ML BAG IVPB SCH (19:00)
[2019-06-03] MEDS: ACETAMINOPHEN 1000 MG/100 ML VIAL (NON FORMULARY) IVPB PRN (20:44)
--- NOTE | 2019-06-03 20:44 | PN ---
Progress Note (short form) - Note Progress Note: Patient evaluated post re-operation today: Flaps are bilaterally viable with good color and flow signals. Bilaterally warm and soft. With a hand held doppler I can hear a good arterial signal and vein with good venous augmentation. BISMARK's are thinning and low output. Excellent UOP No collection noted. Good response to the earlier transfusion, but she remains tachycardic. Plan for transfusion 2 more units PRBC. will cut down IVF to KVO rate once blood starts Fever work-up done, CXR normal. Plan OOB to chair tomorrow.
[2019-06-03] MEDS ORDERED: LACTATED RINGERS SOLUTION 1,000 ML/1,000 ML INFUS.BAG IV SCH (20:45)
--- NOTE | 2019-06-03 20:46 | OP ---
Operative Note - Note: Operative Date: 06/03/19 Pre-Operative Diagnosis: hematoma Operation: exploration of left chest wound with evacuation and hematoma and revision of flap Findings: 100cc hematoma Post-Operative Diagnosis: Same as Pre-op Surgeon: Jerome Bailey [employer] Dispatcher: Efraín Lehman Anesthesia: General Operative Report Dictated: Yes
[2019-06-03 20:58] LABS: HEMATOCRIT 29.4 % (32.4-45.2); HEMOGLOBIN 10.3 GM/dL (10.7-15.3); MCH 32.5 pg (25.7-33.7); MCHC 34.9 g/dl (32.0-36.0); MEAN CELL VOLUME 93.1 fl (80-96); MEAN PLT VOLUME 7.9 fl (7.5-11.1); PLATELET COUNT 113 K/MM3 (134-434); RBC 3.16 M/mm3 (3.60-5.2); RDW 17.5 % (11.6-15.6)
[2019-06-03] MEDS: LACTATED RINGERS SOLUTION 1,000 ML/1,000 ML INFUS.BAG IV SCH (22:56)
[2019-06-04] MEDS: CEFEPIME 2 GM in DEXTROSE 5%-WATER 100 ML IVPB SCH ×3 (02:20→17:53)
[2019-06-04] MEDS: MORPHINE SULFATE 2 MG/ML VIAL IVPUSH PRN ×3 (02:20→13:46)
[2019-06-04 05:29] LABS: HEMATOCRIT 27.9 % (32.4-45.2); HEMOGLOBIN 9.9 GM/dL (10.7-15.3); MCH 32.4 pg (25.7-33.7); MCHC 35.3 g/dl (32.0-36.0); MEAN CELL VOLUME 91.8 fl (80-96); MEAN PLT VOLUME 7.3 fl (7.5-11.1); PLATELET COUNT 124 K/MM3 (134-434); RBC 3.04 M/mm3 (3.60-5.2); WHITE BLOOD COUNT 8.8 K/mm3 (4.0-10.0)
[2019-06-04] MEDS: VANCOMYCIN 1 GRAM (PRE-DOCKED) 1,000 MG/250 ML BAG IVPB SCH ×2 (05:59→17:53)
[2019-06-04] MEDS: ACETAMINOPHEN 1000 MG/100 ML VIAL (NON FORMULARY) IVPB PRN ×2 (06:20→14:17)
[2019-06-04 06:21] LABS: ALBUMIN 2.2 g/dl (3.4-5.0); BILIRUBIN,TOTAL 1.2 mg/dL (0.2-1); BLOOD UREA NITROGEN 5.6 mg/dL (7-18); CALCIUM 7.8 mg/dL (8.5-10.1); CREATININE 0.4 mg/dL (0.55-1.3); MAGNESIUM 1.7 mg/dL (1.8-2.4); PHOSPHOROUS 2.5 mg/dL (2.5-4.9); POTASSIUM 3.9 mmol/L (3.5-5.1); TOT PROT 4.6 g/dl (6.4-8.2)
--- NOTE | 2019-06-04 07:15 | PN ---
Progress Note (short form) - Note Progress Note: POD 1 post takeback: Flaps viable low grade fevers, w/u neg likely atelectasis plan OOB to chair today Continue monitoring. Continue cazares as diuresis is expected
--- NOTE | 2019-06-04 07:29 | PN ---
Progress Note (short form) - Note Progress Note: Anesthesia Post Op Note Pt seen s/p GA for L breast reop Pt awake alert NAD denies n/v, puritis, no complaints VSS SpO2 99% on RA no apparent anesthesia complications Maximiliano Marquez.
--- NOTE | 2019-06-04 08:29 | PN ---
Physical Exam: SUBJECTIVE: Patient seen and examined during AM ICU rounds. Strong doppler pulses to bilateral VERENICE grafts. Patient with mild discomfort over left chest wall. Denies fevers, chills, SOB, nausea, vomiting. Endorses feelign subjectively feverish last night, denies this AM. Remained tachycardic overnight, improved at time of exam. On 1L NC for comfort, 100% Sat. OBJECTIVE: Vital Signs Period Temp Pulse Resp BP Sys/Wolf Pulse Ox Last 24 Hr 98.7 F-101.6 F 104-123 06-22 99-118/49-69 88-100 GENERAL: The patient is awake, alert, and fully oriented, in no acute distress. HEENT: Normal with no signs of trauma, EOMI, moist mucous membranes, trachea midline. LUNGS: Breath sounds equal, clear to auscultation bilaterally, no wheezes, no crackles, no accessory muscle use. HEART: NSR, nl S1/S2 without murmur, rub or gallop. ABDOMEN: Non-tender, non-distended. BISMARK drains in place x4 with serosanguinous drainage. Abd binder in place c/d/i. EXTREMITIES: 2+ pulses, warm, well-perfused, no edema. SCDs in place. NEUROLOGICAL:Normal speech, gait not observed. SKIN: Skin flaps soft, warm, non-tender to palpation. Doppler pulses bilaterally over skin flaps. Laboratory Results - last 24 hr 06/02/19 06/03/19 06/03/19 06:32 13:55 16:25 WBC 8.4 8.0 RBC 3.05 L 2.98 L Hgb 9.8 L 9.7 L Hct 28.3 L D 27.7 L MCV 92.8 D 92.9 MCH 32.2 32.5 MCHC 34.7 35.0 RDW 16.7 H 17.3 H Plt Count 117 L 109 L MPV 7.4 L 7.5 Manual Slide Review Nc Platelet Comment Decreased Sodium Potassium Chloride Carbon Dioxide Anion Gap BUN Creatinine Est GFR (CKD-EPI)AfAm Est GFR (CKD-EPI)NonAf Random Glucose Calcium Phosphorus Magnesium Total Bilirubin AST ALT Alkaline Phosphatase Total Protein Albumin Blood Type O POSITIVE Antibody Screen Negative Crossmatch See Detail 06/03/19 06/04/19 06/04/19 20:05 05:12 05:12 WBC 9.0 8.8 RBC 3.16 L 3.04 L Hgb 10.3 L 9.9 L Hct 29.4 L 27.9 L MCV 93.1 91.8 MCH 32.5 32.4 MCHC 34.9 35.3 RDW 17.5 H 17.0 H Plt Count 113 L 124 L MPV 7.9 7.3 L Manual Slide Review Platelet Comment Sodium 139 Potassium 3.9 Chloride 105 Carbon Dioxide 29 Anion Gap 5 L BUN 5.6 L Creatinine 0.4 L Est GFR (CKD-EPI)AfAm 135.90 Est GFR (CKD-EPI)NonAf 117.26 Random Glucose 108 H Calcium 7.8 L Phosphorus 2.5 Magnesium 1.7 L Total Bilirubin 1.2 H AST 25 ALT 20 Alkaline Phosphatase 56 Total Protein 4.6 L Albumin 2.2 L Blood Type Antibody Screen Crossmatch Active Medications Generic Name Dose Route Start Last Admin Trade Name Freq PRN Reason Stop Dose Admin Acetaminophen 1,000 mg 06/03/19 01:43 06/04/19 06:20 Ofirmev Injection - IVPB 1,000 mg Q6H PRN Administration FEVER Fentanyl 50 mcg 06/02/19 16:48 06/02/19 20:30 Sublimaze Injection - IVPUSH 50 mcg [id number] PRN Administration PAIN-PACU ORDER X 4 DOSES ONLY Hydromorphone HCl 2 mg 06/02/19 18:48 Dilaudid Vial - IVPB Q3H PRN PAIN SCALE 7-10 Vancomycin HCl 1,000 mg in 250 mls @ 166.667 mls/hr 06/03/19 17:00 06/04/19 05:59 Vancomycin (Pre-Docked) IVPB 166.667 mls/hr Q12H ABEL Administration Protocol Cefepime HCl 2 gm/ Dextrose 100 mls @ 200 mls/hr 06/03/19 18:00 06/04/19 02: 20 IVPB 200 mls/hr Q8H-IV ABEL Administration Protocol Lactated Ringer's 1,000 ml in 1,000 mls @ 75 mls/hr 06/03/19 21:49 06/03/19 22:56 Lactated Ringers Solution IV 75 mls/hr ASDIR ABEL Administration Metoclopramide HCl 10 mg 06/02/19 17:21 Reglan Injection - IVPB Q6H PRN NAUSEA AND/OR VOMITING Morphine Sulfate 3 mg 06/02/19 17:21 06/04/19 02:20 Morphine Sulfate IVPUSH 3 mg Q3H PRN Administration PAIN SCALE 1-5 Ondansetron HCl 4 mg 06/02/19 17:21 Zofran Injection IVPUSH Q6H PRN NAUSEA AND/OR VOMITING Prochlorperazine Maleate 25 mg 06/02/19 17:21 Compazine Suppository - MN Q12H PRN NAUSEA AND/OR VOMITING Zolpidem Tartrate 5 mg 06/02/19 17:21 Ambien - PO HS PRN INSOMNIA ASSESSMENT/PLAN: 54 y/o/f with PMHx of left and right breast cx s/p bilateral mastectomy (left breast mastectomy 2002, right breast mastectomy 12/09/18 at [facility] ), left breast implant 2007, now s/p 6 rounds carboplatin / docetaxel chemotherapy (last 10/29/18), presenting for bilateral breast reconstruction with VERENICE, now POD#2. Taken back to the OR for evacuation of 100cc hematoma, now POD# 1. #Neuro - A&Ox3 at baseline - Pain control per surgical team - Dilaudid and Morphine PRNs - Home ambien 5mg qHS #CV: remains tachycardic, stable H&H - Monitoring for thrombus formation / graft failure. dopplerable pulses bilaterally over skin flaps - Monitor vitals, continuous cardiac monitoring - Q1H doppler pulse checks and flap inspection - Hgb/Hct 7.2/21.1 -> 9.9/27.9 - Returned to OR 06/03 100cc hematoma evacuated. No anastamotic problems seen, flap trimmed and re-inserted. - S/P 2 Units PRBC. Monitor H&H. Transfuse as needed. #Pulm - Currently on NC 1L for comfort with 100% O2 Sat - Encourage ISS use - Maintain O2 Sat > 92% #Renal - Monitory I&Os, Espitia, 4x BISMARK drains - Trend lytes, replete as necessary - Trend BUN/Cr #ID - s/p Ancef x3 - WBC at 7.8 - Febrile during blood transfusion, ID consulted per request by Heme/Onc - Cefazolin IV Q8 per surgery - Tylenol for fever, could be component of atelectasis #GI - Continuing to advance diet per surgery - Zosyn, reglan, compazine PRNs for nausea/vomiting #PPX - SCDs/TEDs - Opal Hugger - OOB, PT - Holding Heparin due to bleeding risk #FEN - LR @ 125mls/hr - Diet as per surgery. NPO except for meds now. #Dispo - Continue ICU monitoring, disposition per surgery team Visit type - Emergency Visit Emergency Visit: No - New Patient This patient is new to me today: No - Critical Care Critical Care patient: Yes Total Critical Care Time (in minutes): 36 Critical Care Statement: The care of this patient involved high complexity decision making to prevent further life threatening deterioration of the patient 's condition and/or to evaluate & treat vital organ system(s) failure or risk of failure. ATTENDING PHYSICIAN STATEMENT I saw and evaluated the patient. I reviewed the resident's note and discussed the case with the resident. I agree with the resident's findings and plan as documented. SUBJECTIVE: OBJECTIVE: ASSESSMENT AND PLAN:
[2019-06-04] MEDS ORDERED: PT OWN MED DRAWER 7, Y5N ONE ×2 (09:56→17:32)
--- NOTE | 2019-06-04 11:42 | PN ---
Teaching Attending Note Name of Resident: Los Burch ATTENDING PHYSICIAN STATEMENT I saw and evaluated the patient. I reviewed the resident's note and discussed the case with the resident. I agree with the resident's findings and plan as documented. SUBJECTIVE: Patient seen and examined in the ICU. Awake and alert. Reports MSK type "soreness". No CP or SOB. Intake & Output 06/01/19 06/02/19 06/03/19 06/04/19 23:59 23:59 23:59 23:59 Intake Total 5300 6780 1250 Output Total 975 8694 3886 Balance 4325 4406 -2636 Weight 158 lb Last Vital Signs Temp Pulse Resp BP Pulse Ox 99.5 F 103 H 17 109/68 99 06/04/19 10:00 06/04/19 10:00 06/04/19 10:00 06/04/19 10:00 06/04/19 09:00 Active Medications Acetaminophen (Ofirmev Injection -) 1,000 mg IVPB Q6H PRN PRN Reason: FEVER Last Admin: 06/04/19 06:20 Dose: 1,000 mg Fentanyl (Sublimaze Injection -) 50 mcg IVPUSH [id number] PRN PRN Reason: PAIN-PACU ORDER X 4 DOSES ONLY Last Admin: 06/02/19 20:30 Dose: 50 mcg Hydromorphone HCl (Dilaudid Vial -) 2 mg IVPB Q3H PRN PRN Reason: PAIN SCALE 7-10 Vancomycin HCl (Vancomycin (Pre-Docked)) 1,000 mg in 250 mls @ 166.667 mls/hr IVPB Q12H ABEL; Protocol Last Admin: 06/04/19 05:59 Dose: 166.667 mls/hr Cefepime HCl 2 gm/ Dextrose 100 mls @ 200 mls/hr IVPB Q8H-IV ABEL; Protocol Last Admin: 06/04/19 10:15 Dose: 200 mls/hr Lactated Ringer's (Lactated Ringers Solution) 1,000 ml in 1,000 mls @ 75 mls/ hr IV ASDIR ABEL Last Admin: 06/03/19 22:56 Dose: 75 mls/hr Metoclopramide HCl (Reglan Injection -) 10 mg IVPB Q6H PRN PRN Reason: NAUSEA AND/OR VOMITING Morphine Sulfate (Morphine Sulfate) 3 mg IVPUSH Q3H PRN PRN Reason: PAIN SCALE 1-5 Last Admin: 06/04/19 09:00 Dose: 3 mg Ondansetron HCl (Zofran Injection) 4 mg IVPUSH Q6H PRN PRN Reason: NAUSEA AND/OR VOMITING Prochlorperazine Maleate (Compazine Suppository -) 25 mg PA Q12H PRN PRN Reason: NAUSEA AND/OR VOMITING Zolpidem Tartrate (Ambien -) 5 mg PO HS PRN PRN Reason: INSOMNIA Gen: NAD at rest Heart: RRR Lung: decreased breath sounds at the bases Abd: soft, dressings intact Ext: no edema Laboratory Results - last 24 hr 06/02/19 06/03/19 06/03/19 06:32 13:55 16:25 WBC 8.4 8.0 RBC 3.05 L 2.98 L Hgb 9.8 L 9.7 L Hct 28.3 L D 27.7 L MCV 92.8 D 92.9 MCH 32.2 32.5 MCHC 34.7 35.0 RDW 16.7 H 17.3 H Plt Count 117 L 109 L MPV 7.4 L 7.5 Manual Slide Review Nc Platelet Comment Decreased Sodium Potassium Chloride Carbon Dioxide Anion Gap BUN Creatinine Est GFR (CKD-EPI)AfAm Est GFR (CKD-EPI)NonAf Random Glucose Calcium Phosphorus Magnesium Total Bilirubin AST ALT Alkaline Phosphatase Total Protein Albumin Blood Type O POSITIVE Antibody Screen Negative Crossmatch See Detail 06/03/19 06/04/19 06/04/19 20:05 05:12 05:12 WBC 9.0 8.8 RBC 3.16 L 3.04 L Hgb 10.3 L 9.9 L Hct 29.4 L 27.9 L MCV 93.1 91.8 MCH 32.5 32.4 MCHC 34.9 35.3 RDW 17.5 H 17.0 H Plt Count 113 L 124 L MPV 7.9 7.3 L Manual Slide Review Platelet Comment Sodium 139 Potassium 3.9 Chloride 105 Carbon Dioxide 29 Anion Gap 5 L BUN 5.6 L Creatinine 0.4 L Est GFR (CKD-EPI)AfAm 135.90 Est GFR (CKD-EPI)NonAf 117.26 Random Glucose 108 H Calcium 7.8 L Phosphorus 2.5 Magnesium 1.7 L Total Bilirubin 1.2 H AST 25 ALT 20 Alkaline Phosphatase 56 Total Protein 4.6 L Albumin 2.2 L Blood Type Antibody Screen Crossmatch ASSESSMENT AND PLAN: POD # 2 s/p Bilateral Breast Reconstruction with VERENICE flap/Bilateral Rib Resections/Bilateral SIEV ligations POD #1 exploration of left chest wound with evacuation and hematoma and revision of flap History of Breast CA Anemia Pain control Incentive spirometry Monitor H/H Normal transfusion thresholds Monitor drain output Flap monitoring Decrease IVF PO per surgery DVT prophylaxis Dr Fields
--- NOTE | 2019-06-04 12:24 | CONS ---
DATE OF CONSULTATION: DATE OF DICTATION: 06/04/2019 INFECTIOUS DISEASE CONSULTATION HISTORY OF PRESENT ILLNESS: The patient is a 54-year-old female who is evaluated for fever. She has a history of recurrent breast CA. She underwent a bilateral VERENICE flap procedure on June 02, 2019. Her postoperative course was complicated by development of a hematoma in the breast. She required a return to the operating room where she underwent evacuation of the hematoma. Her course has been complicated by fever to 101.6. She was treated perioperatively with cefazolin. At the present time she is awake and alert. She is status post evacuation of hematoma. She has no complaints of pain and she denies any shaking chills. No complaints of shortness of breath, cough or sputum production, dysuria, hematuria. No vomiting or diarrhea. PAST MEDICAL HISTORY: Positive for breast cancer diagnosed in 2002. She is status post left mastectomy. She underwent a right mastectomy in 2018 as well as left breast implant in 2007. She is now status post bilateral VERENICE flap procedure. ALLERGIES: ZOSYN (patient reports developing pruritus). MEDICATIONS: At the present time include Tylenol, fentanyl, Reglan, morphine, Ambien. SOCIAL HISTORY: Resides at home in the community. Nonsmoker. Occasional ETOH. LABORATORY DATA: White count 9.0, hematocrit 29.4, platelets 113. Creatinine 0.4. Lactic acid 1.5. Blood cultures pending. PHYSICAL EXAMINATION:General: She is awake and alert. She is not acutely toxic appearing. Vital Signs: Temperature 99.5, T-max 101.6, blood pressure 109/68, pulse 103, regular, respirations 17 per minute. HEENT: Sclerae are anicteric. Cardiac: Heart sounds S1, S2. Lungs: Clear. Breasts: Surgical wounds appear to be intact. There is no erythema or drainage. Dopplers are in place. Abdomen: Soft and nontender. There is a low transverse surgical scar with no erythema or drainage. Abhay-Herring drains are draining serosanguineous fluid. Extremities: Negative for edema. Negative Homans sign. IMPRESSION: 1. Postoperative fever. 2. Postoperative bilateral deep inferior epigastric perforators flap procedure. 3. Status post evacuation of hematoma. 4. Recurrent breast cancer. RECOMMENDATIONS: Obtain cultures. Empiric antibiotic coverage in this non-neutropenic patient with a history of ZOSYN allergy with vancomycin and cefepime. Further recommendations pending cultures. Will follow. Thank you for the kind referral. MARLON AGUAYO M.D. GERMAINE/[id number]
--- NOTE | 2019-06-04 13:00 | PATH ---
Surgical Pathology Report Patient Name: GENE ARIAS Med. Rec. #: [id number] /Age/Gender: 1965 (Age: 54) / F Account: [id number] [facility] Taken: 06/02/2019 Received: 06/03/2019 Reported: 06/04/2019 Physicians: Jerome Bailey Specimen(s) Received A: RIGHT BREAST CAPSULE B: RIGHT BREAST IMPLANT C: LEFT BREAST IMPLANT Clinical History Breast cancer Final Diagnosis A. BREAST CAPSULE, RIGHT, EXCISION: DENSE FIBROUS TISSUE CONSISTENT WITH CAPSULE WITH PATCHY ACUTE AND CHRONIC INFLAMMATION INCLUDING FOCAL MILD HISTIOCYTIC INFILTRATE AND GIANT CELL REACTION WITH ASSOCIATED POLARIZABLE FOREIGN BODY MATERIAL. B. BREAST IMPLANT, RIGHT, REMOVAL: BREAST IMPLANT. MACROSCOPIC DIAGNOSIS. C. BREAST IMPLANT, LEFT, REMOVAL: BREAST IMPLANT. MACROSCOPIC DIAGNOSIS. Electronically Signed Ellen Vazquez M.D. Gross Description A. Received in formalin labeled "right breast capsule," is a 13.5 x 8.5 x 0.2 cm avalos, firm fibrous capsule. No lesions are identified. Barratte Operator sections are submitted in one cassette. B. Received fresh labeled "right breast implant," is a 14.0 x 11.5 x 5.0 cm avalos, intact breast implant. No soft tissue is present. No sections are submitted, gross only. C. Received fresh labeled "left breast implant," is a 14.0 x 11.5 x 5.0 cm avalos, intact breast implant. No soft tissue is present. No sections are submitted, gross only. DL/06/03/2019 saudi06/03/2019
[2019-06-04] MEDS: LACTATED RINGERS SOLUTION 1,000 ML/1,000 ML INFUS.BAG IV SCH (14:16)
--- NOTE | 2019-06-04 16:52 | OP ---
DATE OF ADMISSION: 06/02/2019 SURGEON: Kimo Yoo MD PREOPERATIVE DIAGNOSIS: Breast cancer. POSTOPERATIVE DIAGNOSIS: Breast cancer. PROCEDURES PERFORMED: 1. Bilateral tissue engagement liaison removal. 2. Bilateral revision of reconstructed breast. 3. Bilateral total capsulectomy. 4. Bilateral multilevel intercostal nerve blockage with liposomal bupivacaine for postoperative analgesia. 5. Transverse abdominal plane block. ESTIMATED BLOOD LOSS: 20 mL. DRAINS: 19-Khmer round in each breast pocket and 2 in the abdomen. ANESTHESIA: General endotracheal anesthesia was used. COMPLICATIONS: None. REASON FOR MEDICAL NECESSITY: This is a 54-year-old female who recently had bilateral mastectomy with tissue engagement liaison placement then with plans for a delayed autologous deep inferior epigastric artery carpenter streetcar flap reconstruction by Dr. Jerome Bailey and Dr. Lehman. Patient was given informed consent for the operation including all risks and benefits of the procedure. After she agreed, we proceeded to the operating room in standard fashion. DESCRIPTION OF MEDICAL PROCEDURE: Patient was laid supine on the operating room table. All noninvasive hemodynamic monitoring devices were placed as well as bilateral sequential compression devices. Atraumatic endotracheal intubation was performed. The transverse mastectomy incisions were then incised with a 15 blade skin knife. The nipple-sparing mastectomy was performed on the left and a pink and healthy, viable nipple and areola. The mastectomy skin flaps were then dissected circumferentially above the pectoralis major muscle bilaterally. The Alloderm or acellular dermal matrix was identified at the inferior border of the pectoralis major muscle and then encircled circumferentially around the tissue engagement liaison and was removed from each breast pocket completing the total capsulectomy and removal of the intact tissue expanders. The capsules were opened on the back table, and the expanders were intact on inspection. The pectoralis major muscle was then sutured back down to the chest wall using interrupted 2-0 Vicryl suture to avoid any potential animation deformity. The mastectomy pocket was then shaped in order to encompass the autologous reconstruction dissecting the lateral mammary fold bilaterally. A multilevel intercostal nerve blockade was then performed with liposomal bupivacaine injecting intercostal nerves 3-8 for postoperative analgesia of liposomal bupivacaine diluted in 100 mL of general normal saline. The pockets were then copiously irrigated, and bleeding points were controlled with Bovie cautery in preparation for the placement of the deep flaps. After the deep flaps were harvested by Dr. Lehman and Dr. Bailey, a transverse abdominal plane block was then performed injecting liposomal bupivacaine through each hemiabdomen just lateral to the semilunar line extending from intercostal nerves T8-L1 for postoperative analgesia. The infiltration of the intercostal nerves was placed just below the inferior oblique muscle and above the transversalis fascia. The bilateral deep inferior epigastric artery carpenter streetcar flap reconstruction will be dictated in a separate operative note by Efraín Lehman MD and Dr. Bailey. I was present for the entirety of the operation. MD YESENIA [place]/[id number]
--- NOTE | 2019-06-04 20:30 | PN ---
Progress Note (short form) - Note Progress Note: POD 2 from flap and 1 from takeback. Flaps are viable with good signals. OOB to chair with me this evening Excellent UOP. Plan for d/c cazares in AM. Ambulate and transfer to stepdown in AM ReStart sq heparin.
[2019-06-04] MEDS: HYDROmorphone HCl 2 MG/ML VIAL IVPB PRN (21:30)
[2019-06-04] MEDS: HEPARIN NA (PORCINE) 5,000 UNITS/ML 1ML VIAL SQ SCH (21:31)
[2019-06-05] MEDS: LACTATED RINGERS SOLUTION 1,000 ML/1,000 ML INFUS.BAG IV SCH (00:29)
[2019-06-05] MEDS: CEFEPIME 2 GM in DEXTROSE 5%-WATER 100 ML IVPB SCH ×3 (01:41→17:05)
[2019-06-05] MEDS: MORPHINE SULFATE 2 MG/ML VIAL IVPUSH PRN (04:53)
[2019-06-05] MEDS: VANCOMYCIN 1 GRAM (PRE-DOCKED) 1,000 MG/250 ML BAG IVPB SCH ×2 (04:55→16:52)
[2019-06-05] MEDS: ACETAMINOPHEN 1000 MG/100 ML VIAL (NON FORMULARY) IVPB PRN (04:59)
[2019-06-05 06:12] LABS: BASO % 0.2 % (0-2.0); EOS % 1.6 % (0-4.5); HEMATOCRIT 25.5 % (32.4-45.2); LYMPH % 17.2 % (8-40); MCH 32.4 pg (25.7-33.7); MCHC 35.2 g/dl (32.0-36.0); MEAN CELL VOLUME 92.1 fl (80-96); MEAN PLT VOLUME 7.5 fl (7.5-11.1); MONO % 9.2 % (3.8-10.2); NEUT % 71.8 % (42.8-82.8); PLATELET COUNT 123 K/MM3 (134-434); RBC 2.77 M/mm3 (3.60-5.2); RDW 16.1 % (11.6-15.6); WHITE BLOOD COUNT 6.9 K/mm3 (4.0-10.0)
[2019-06-05 06:40] LABS: ALBUMIN 1.9 g/dl (3.4-5.0); BILIRUBIN,TOTAL 0.9 mg/dL (0.2-1); BLOOD UREA NITROGEN 7.3 mg/dL (7-18); CALCIUM 7.8 mg/dL (8.5-10.1); CREATININE 0.3 mg/dL (0.55-1.3); MAGNESIUM 1.7 mg/dL (1.8-2.4); PHOSPHOROUS 2.5 mg/dL (2.5-4.9); POTASSIUM 3.2 mmol/L (3.5-5.1); TOT PROT 4.7 g/dl (6.4-8.2)
--- NOTE | 2019-06-05 07:16 | PN ---
Progress Note (short form) - Note Progress Note: POD 3 Flaps viable pt non-compliant with oob fever this morning with persistent tachycardia hct 25.5 mandatory OOB ambulate with PT d/c cazares reconsider transfuse 2u PRBC transfer to floor after
[2019-06-05] MEDS ORDERED: PT OWN MED DRAWER 7, Y5N ONE ×4 (07:52→21:21)
[2019-06-05] MEDS: HEPARIN NA (PORCINE) 5,000 UNITS/ML 1ML VIAL SQ SCH ×2 (10:19→21:25)
--- NOTE | 2019-06-05 10:46 | PN ---
Teaching Attending Note Name of Resident: Los Burch ATTENDING PHYSICIAN STATEMENT I saw and evaluated the patient. I reviewed the resident's note and discussed the case with the resident. I agree with the resident's findings and plan as documented. SUBJECTIVE: Patient seen and examined in the ICU. Awake and alert. Reports feeling a little better today. Less pain. No CP or SOB. Intake & Output 06/02/19 06/03/19 06/04/19 06/05/19 23:59 23:59 23:59 23:59 Intake Total 5300 6780 3250 1225 Output Total 975 2304 5607 1460 Balance 4325 4406 -2357 -235 Weight 158 lb Last Vital Signs Temp Pulse Resp BP Pulse Ox 98.2 F 89 17 95/52 L 99 06/05/19 10:00 06/05/19 10:00 06/05/19 10:00 06/05/19 10:00 06/05/19 10:10 Active Medications Fentanyl (Sublimaze Injection -) 50 mcg IVPUSH [id number] PRN PRN Reason: PAIN-PACU ORDER X 4 DOSES ONLY Last Admin: 06/02/19 20:30 Dose: 50 mcg Heparin Sodium (Porcine) (Heparin -) 5,000 unit SQ BID ABEL Last Admin: 06/05/19 10:19 Dose: 5,000 unit Hydromorphone HCl (Dilaudid Vial -) 2 mg IVPB Q3H PRN PRN Reason: PAIN SCALE 7-10 Last Admin: 06/04/19 21:30 Dose: 2 mg Vancomycin HCl (Vancomycin (Pre-Docked)) 1,000 mg in 250 mls @ 166.667 mls/hr IVPB Q12H ABEL; Protocol Last Admin: 06/05/19 04:55 Dose: 166.667 mls/hr Cefepime HCl 2 gm/ Dextrose 100 mls @ 200 mls/hr IVPB Q8H-IV ABEL; Protocol Last Admin: 06/05/19 10:18 Dose: 200 mls/hr Lactated Ringer's (Lactated Ringers Solution) 1,000 ml in 1,000 mls @ 75 mls/ hr IV ASDIR ABEL Last Admin: 06/05/19 00:29 Dose: Not Given Metoclopramide HCl (Reglan Injection -) 10 mg IVPB Q6H PRN PRN Reason: NAUSEA AND/OR VOMITING Morphine Sulfate (Morphine Sulfate) 3 mg IVPUSH Q3H PRN PRN Reason: PAIN SCALE 1-5 Last Admin: 06/05/19 04:53 Dose: 3 mg Ondansetron HCl (Zofran Injection) 4 mg IVPUSH Q6H PRN PRN Reason: NAUSEA AND/OR VOMITING Prochlorperazine Maleate (Compazine Suppository -) 25 mg AR Q12H PRN PRN Reason: NAUSEA AND/OR VOMITING Zolpidem Tartrate (Ambien -) 5 mg PO HS PRN PRN Reason: INSOMNIA Gen: NAD at rest Heart: RRR Lung: decreased breath sounds at the bases Abd: soft, dressings intact Ext: no edema Laboratory Results - last 24 hr 06/05/19 06/05/19 06/05/19 05:40 05:40 08:20 WBC 6.9 RBC 2.77 L Hgb 9.0 L Hct 25.5 L MCV 92.1 MCH 32.4 MCHC 35.2 RDW 16.1 H Plt Count 123 L MPV 7.5 Absolute Neuts (auto) 5.0 Neutrophils % 71.8 Lymphocytes % 17.2 Monocytes % 9.2 Eosinophils % 1.6 D Basophils % 0.2 Nucleated RBC % 0 Sodium 137 Potassium 3.2 L Chloride 99 Carbon Dioxide 31 Anion Gap 6 L BUN 7.3 Creatinine 0.3 L Est GFR (CKD-EPI)AfAm 149.39 Est GFR (CKD-EPI)NonAf 128.90 Random Glucose 102 Calcium 7.8 L Phosphorus 2.5 Magnesium 1.7 L Total Bilirubin 0.9 AST 17 ALT 16 Alkaline Phosphatase 58 Total Protein 4.7 L Albumin 1.9 L Blood Type O POSITIVE Antibody Screen Negative Crossmatch See Detail ASSESSMENT AND PLAN: POD #3 S/P Bilateral Breast Reconstruction with VERENICE flap/Bilateral Rib Resections/Bilateral SIEV ligations POD #2 Exploration of left chest wound with evacuation and hematoma and revision of flap History of Breast CA Anemia Transfusion per Surgery Pain control Incentive spirometry Monitor H/H Monitor drain output Flap monitoring PO per surgery DVT prophylaxis Floor Dr Fields
--- NOTE | 2019-06-05 12:56 | PN ---
Physical Exam: SUBJECTIVE: Patient seen and examined on bedside rounds. Temperature to 101.2 overnight, defervesced with tylenol. Patient agrees to work with PT and get OOB today, demonstrates use of ISS for me. Endorses moderate appetite, tolerating PO well, no nausea or vomiting. Denies fevers, chills, chest pain, SOB, leg pain. OBJECTIVE: Vital Signs Period Temp Pulse Resp BP Sys/Wolf Pulse Ox Last 24 Hr 98.0 F-101.2 F 89-113 12-18 84-107/50-68 99-99 GENERAL: The patient is awake, alert, and fully oriented, in no acute distress. HEENT: Normal with no signs of trauma, EOMI, moist mucous membranes, trachea midline. LUNGS: Breath sounds equal, clear to auscultation bilaterally, no wheezes, no crackles, no accessory muscle use. HEART: NSR, nl S1/S2 without murmur, rub or gallop. ABDOMEN: Non-tender, non-distended. BISMARK drains in place x4 with serosanguinous drainage. Abd binder in place c/d/i. EXTREMITIES: 2+ pulses, warm, well-perfused, no edema. SCDs in place. Calves non -tender. NEUROLOGICAL: Normal speech, gait not observed. SKIN: Skin flaps soft, warm, non-tender to palpation. Doppler pulses bilaterally over skin flaps. Laboratory Results - last 24 hr 06/02/19 06/05/19 06/05/19 06:32 05:40 05:40 WBC 6.9 RBC 2.77 L Hgb 9.0 L Hct 25.5 L MCV 92.1 MCH 32.4 MCHC 35.2 RDW 16.1 H Plt Count 123 L MPV 7.5 Absolute Neuts (auto) 5.0 Neutrophils % 71.8 Lymphocytes % 17.2 Monocytes % 9.2 Eosinophils % 1.6 D Basophils % 0.2 Nucleated RBC % 0 Sodium 137 Potassium 3.2 L Chloride 99 Carbon Dioxide 31 Anion Gap 6 L BUN 7.3 Creatinine 0.3 L Est GFR (CKD-EPI)AfAm 149.39 Est GFR (CKD-EPI)NonAf 128.90 Random Glucose 102 Calcium 7.8 L Phosphorus 2.5 Magnesium 1.7 L Total Bilirubin 0.9 AST 17 ALT 16 Alkaline Phosphatase 58 Total Protein 4.7 L Albumin 1.9 L Blood Type Antibody Screen Crossmatch See Detail 06/05/19 08:20 WBC RBC Hgb Hct MCV MCH MCHC RDW Plt Count MPV Absolute Neuts (auto) Neutrophils % Lymphocytes % Monocytes % Eosinophils % Basophils % Nucleated RBC % Sodium Potassium Chloride Carbon Dioxide Anion Gap BUN Creatinine Est GFR (CKD-EPI)AfAm Est GFR (CKD-EPI)NonAf Random Glucose Calcium Phosphorus Magnesium Total Bilirubin AST ALT Alkaline Phosphatase Total Protein Albumin Blood Type O POSITIVE Antibody Screen Negative Crossmatch See Detail Active Medications Generic Name Dose Route Start Last Admin Trade Name Freq PRN Reason Stop Dose Admin Fentanyl 50 mcg 06/02/19 16:48 06/02/19 20:30 Sublimaze Injection - IVPUSH 50 mcg [id number] PRN Administration PAIN-PACU ORDER X 4 DOSES ONLY Heparin Sodium (Porcine) 5,000 unit 06/04/19 22:00 06/05/19 10:19 Heparin - SQ 5,000 unit BID ABEL Administration Hydromorphone HCl 2 mg 06/02/19 18:48 06/04/19 21:30 Dilaudid Vial - IVPB 2 mg Q3H PRN Administration PAIN SCALE 7-10 Vancomycin HCl 1,000 mg in 250 mls @ 166.667 mls/hr 06/03/19 17:00 06/05/19 04:55 Vancomycin (Pre-Docked) IVPB 166.667 mls/hr Q12H ABEL Administration Protocol Cefepime HCl 2 gm/ Dextrose 100 mls @ 200 mls/hr 06/03/19 18:00 06/05/19 10: 18 IVPB 200 mls/hr Q8H-IV ABEL Administration Protocol Metoclopramide HCl 10 mg 06/02/19 17:21 Reglan Injection - IVPB Q6H PRN NAUSEA AND/OR VOMITING Morphine Sulfate 3 mg 06/02/19 17:21 06/05/19 04:53 Morphine Sulfate IVPUSH 3 mg Q3H PRN Administration PAIN SCALE 1-5 Ondansetron HCl 4 mg 06/02/19 17:21 Zofran Injection IVPUSH Q6H PRN NAUSEA AND/OR VOMITING Prochlorperazine Maleate 25 mg 06/02/19 17:21 Compazine Suppository - [place] Q12H PRN NAUSEA AND/OR VOMITING Zolpidem Tartrate 5 mg 06/02/19 17:21 Ambien - PO HS PRN INSOMNIA ASSESSMENT/PLAN: 54 y/o/f with PMHx of left and right breast cx s/p bilateral mastectomy (left breast mastectomy 2002, right breast mastectomy 12/09/18 at [facility] ), left breast implant 2007, now s/p 6 rounds carboplatin / docetaxel chemotherapy (last 10/29/18), presenting for bilateral breast reconstruction with VERENICE, now POD#3. Taken back to the OR for evacuation of 100cc hematoma, now POD# 2. #Neuro - A&Ox3 at baseline - Pain control per surgical team - Dilaudid and Morphine PRNs - Home ambien 5mg qHS #CV: remains tachycardic, stable H&H - Monitoring for thrombus formation / graft failure. Dopplerable pulses bilaterally over skin flaps - Monitor vitals, continuous cardiac monitoring - Q4H doppler pulse checks and flap inspection - Hgb/Hct 7.2/21.1 -> 9.9/27.9 -> 9.0/25.5 - Returned to OR 06/03 100cc hematoma evacuated. No anastamotic problems seen, flap trimmed and re-inserted. - S/P 2 Units PRBC. Monitor H&H. Transfuse as needed. - Ordered for 1 U PRBC per surgery, T&S updated. #Pulm - Currently on NC 1L for comfort with 100% O2 Sat - Encourage ISS use - Maintain O2 Sat > 92% #Renal - Monitory I&Os, Espitia, 4x BISMARK drains - Trend lytes, replete as necessary - Trend BUN/Cr #ID - s/p Ancef x3 - WBC at 7.8 > 9.0 - Febrile during blood transfusion, ID consulted per request by Heme/Onc - Cefazolin IV Q8 per surgery - Tylenol for fever, likely component of atelectasis - BCx NGTD #GI - Continuing to advance diet per surgery - Zosyn, reglan, compazine PRNs for nausea/vomiting #PPX - SCDs/TEDs - Opal Humihaelaer - OOB, PT - Holding Heparin due to bleeding risk #FEN - Holding IVF, s/p LR @ 125mls/hr - Diet as per surgery. Regular Diet #Dispo - Transfer to Tele Visit type - Emergency Visit Emergency Visit: No - New Patient This patient is new to me today: No - Critical Care Critical Care patient: Yes Total Critical Care Time (in minutes): 36 Critical Care Statement: The care of this patient involved high complexity decision making to prevent further life threatening deterioration of the patient 's condition and/or to evaluate & treat vital organ system(s) failure or risk of failure. ATTENDING PHYSICIAN STATEMENT I saw and evaluated the patient. I reviewed the resident's note and discussed the case with the resident. I agree with the resident's findings and plan as documented. SUBJECTIVE: OBJECTIVE: ASSESSMENT AND PLAN:
--- NOTE | 2019-06-05 15:56 | PN ---
Progress Note, Physician History of Present Illness: OOB IN CHAIR TEMP ELEVATION EARLY AM NOTED NO C/O PAIN - Current Medication List Current Medications: Active Medications Fentanyl (Sublimaze Injection -) 50 mcg IVPUSH [id number] PRN PRN Reason: PAIN-PACU ORDER X 4 DOSES ONLY Last Admin: 06/02/19 20:30 Dose: 50 mcg Heparin Sodium (Porcine) (Heparin -) 5,000 unit SQ BID ABEL Last Admin: 06/05/19 10:19 Dose: 5,000 unit Hydromorphone HCl (Dilaudid Vial -) 2 mg IVPB Q3H PRN PRN Reason: PAIN SCALE 7-10 Last Admin: 06/04/19 21:30 Dose: 2 mg Vancomycin HCl (Vancomycin (Pre-Docked)) 1,000 mg in 250 mls @ 166.667 mls/hr IVPB Q12H ABEL; Protocol Last Admin: 06/05/19 04:55 Dose: 166.667 mls/hr Cefepime HCl 2 gm/ Dextrose 100 mls @ 200 mls/hr IVPB Q8H-IV ABEL; Protocol Last Admin: 06/05/19 10:18 Dose: 200 mls/hr Metoclopramide HCl (Reglan Injection -) 10 mg IVPB Q6H PRN PRN Reason: NAUSEA AND/OR VOMITING Morphine Sulfate (Morphine Sulfate) 3 mg IVPUSH Q3H PRN PRN Reason: PAIN SCALE 1-5 Last Admin: 06/05/19 04:53 Dose: 3 mg Ondansetron HCl (Zofran Injection) 4 mg IVPUSH Q6H PRN PRN Reason: NAUSEA AND/OR VOMITING Prochlorperazine Maleate (Compazine Suppository -) 25 mg [place] Q12H PRN PRN Reason: NAUSEA AND/OR VOMITING Zolpidem Tartrate (Ambien -) 5 mg PO HS PRN PRN Reason: INSOMNIA - Objective Vital Signs: Vital Signs Temperature 97.9 F 06/05/19 14:00 Pulse Rate 105 H 06/05/19 14:00 Respiratory Rate 17 06/05/19 14:00 Blood Pressure 107/68 06/05/19 14:00 O2 Sat by Pulse Oximetry (%) 99 06/05/19 10:10 Constitutional: Yes: No Distress Cardiovascular: Yes: Regular Rate and Rhythm, S1, S2 Respiratory: Yes: Diminished, Other (DECREASED BS BASES) Gastrointestinal: Yes: Normal Bowel Sounds, Soft. No: Tenderness Breast(s): Yes: Other (SURGICAL WOUNDS CLEAR) Extremities: No: Calf Tenderness Edema: Yes Labs: CBC, BMP 06/05/19 05:40 06/05/19 05:40 INR, PTT INR 1.39 (0.83-1.09) H 06/03/19 05:00 Assessment/Plan POST OP VERENICE FLAP POST OP EVACUATION OF HEMATOMA FEVER AWAIT C/S CONTINUE EMPIRIC VANCOMYCIN /CEFEPIME
[2019-06-05 17:03] LABS: BASO % 0.2 % (0-2.0); EOS % 2.6 % (0-4.5); HEMATOCRIT 34.7 % (32.4-45.2); HEMOGLOBIN 11.7 GM/dL (10.7-15.3); MCH 31.5 pg (25.7-33.7); MCHC 33.8 g/dl (32.0-36.0); MEAN CELL VOLUME 93.3 fl (80-96); MONO % 10.9 % (3.8-10.2); NEUT % 71.3 % (42.8-82.8); PLATELET COUNT 149 K/MM3 (134-434); RBC 3.72 M/mm3 (3.60-5.2); RDW 15.7 % (11.6-15.6)
[2019-06-05] MEDS: HYDROmorphone HCl 2 MG/ML VIAL IVPB PRN (18:48)
[2019-06-05] MEDS ORDERED: MAGNESIUM OXIDE 400 MG TABLET (FP) PO ONE (19:39)
[2019-06-05] MEDS ORDERED: POTASSIUM CHLORIDE TABS 20 MEQ TABLET.ER (FP) PO ONE (19:40)
[2019-06-06] MEDS: CEFEPIME 2 GM in DEXTROSE 5%-WATER 100 ML IVPB SCH ×2 (02:16→09:37)
[2019-06-06] MEDS: VANCOMYCIN 1 GRAM (PRE-DOCKED) 1,000 MG/250 ML BAG IVPB SCH (05:02)
[2019-06-06] MEDS ORDERED: ACETAMINOPHEN 1000 MG/100 ML VIAL (NON FORMULARY) IVPB ONE (06:06)
[2019-06-06 07:37] LABS: BASO % 0.3 % (0-2.0); HEMATOCRIT 27.6 % (32.4-45.2); HEMOGLOBIN 9.6 GM/dL (10.7-15.3); LYMPH % 19.6 % (8-40); MCH 32.4 pg (25.7-33.7); MCHC 34.9 g/dl (32.0-36.0); MEAN CELL VOLUME 92.8 fl (80-96); MEAN PLT VOLUME 8.2 fl (7.5-11.1); MONO % 11.4 % (3.8-10.2); NEUT % 63.7 % (42.8-82.8); PLATELET COUNT 142 K/MM3 (134-434); RBC 2.97 M/mm3 (3.60-5.2); RDW 15.4 % (11.6-15.6); WHITE BLOOD COUNT 5.2 K/mm3 (4.0-10.0)
[2019-06-06 08:34] LABS: BILIRUBIN,TOTAL 0.8 mg/dL (0.2-1); BLOOD UREA NITROGEN 7.2 mg/dL (7-18); CALCIUM 7.6 mg/dL (8.5-10.1); CREATININE 0.3 mg/dL (0.55-1.3); MAGNESIUM 1.7 mg/dL (1.8-2.4); PHOSPHOROUS 2.5 mg/dL (2.5-4.9); POTASSIUM 3.4 mmol/L (3.5-5.1); TOT PROT 4.8 g/dl (6.4-8.2)
[2019-06-06] MEDS ORDERED: PT OWN MED DRAWER 7, Y5N ONE (09:24)
--- NOTE | 2019-06-06 09:28 | PN ---
Teaching Attending Note Name of Resident: Tyler Baez ATTENDING PHYSICIAN STATEMENT I saw and evaluated the patient. I reviewed the resident's note and discussed the case with the resident. I agree with the resident's findings and plan as documented. SUBJECTIVE: Patient seen and examined in the ICU. Awake and alert. Reports feeling a little better today. Less pain. No CP or SOB. Intake & Output 06/03/19 06/04/19 06/05/19 06/06/19 23:59 23:59 23:59 23:59 Intake Total 6780 3250 2660 650 Output Total 7434 5607 2704 820 Balance 4406 -2357 -44 -170 Weight 158 lb Last Vital Signs Temp Pulse Resp BP Pulse Ox 98.6 F 92 H 13 88/58 L 99 06/06/19 04:00 06/06/19 06:00 06/06/19 06:00 06/06/19 06:00 06/05/19 20:09 Active Medications Fentanyl (Sublimaze Injection -) 50 mcg IVPUSH [id number] PRN PRN Reason: PAIN-PACU ORDER X 4 DOSES ONLY Last Admin: 06/02/19 20:30 Dose: 50 mcg Heparin Sodium (Porcine) (Heparin -) 5,000 unit SQ BID ABEL Last Admin: 06/05/19 21:25 Dose: 5,000 unit Vancomycin HCl (Vancomycin (Pre-Docked)) 1,000 mg in 250 mls @ 166.667 mls/hr IVPB Q12H ABEL; Protocol Last Admin: 06/06/19 05:02 Dose: 166.667 mls/hr Cefepime HCl 2 gm/ Dextrose 100 mls @ 200 mls/hr IVPB Q8H-IV ABEL; Protocol Last Admin: 06/06/19 02:16 Dose: 200 mls/hr Metoclopramide HCl (Reglan Injection -) 10 mg IVPB Q6H PRN PRN Reason: NAUSEA AND/OR VOMITING Ondansetron HCl (Zofran Injection) 4 mg IVPUSH Q6H PRN PRN Reason: NAUSEA AND/OR VOMITING Prochlorperazine Maleate (Compazine Suppository -) 25 mg LA Q12H PRN PRN Reason: NAUSEA AND/OR VOMITING Gen: NAD at rest Heart: RRR Lung: decreased breath sounds at the bases Abd: soft, dressings intact Ext: no edema Laboratory Results - last 24 hr 06/02/19 06/05/19 06/05/19 06:32 08:20 16:20 WBC 8.0 RBC 3.72 Hgb 11.7 Hct 34.7 D MCV 93.3 MCH 31.5 MCHC 33.8 RDW 15.7 H Plt Count 149 D MPV 8.0 Absolute Neuts (auto) 5.7 Neutrophils % 71.3 Lymphocytes % 15.0 Monocytes % 10.9 H Eosinophils % 2.6 Basophils % 0.2 Nucleated RBC % 0 Sodium Potassium Chloride Carbon Dioxide Anion Gap BUN Creatinine Est GFR (CKD-EPI)AfAm Est GFR (CKD-EPI)NonAf Random Glucose Calcium Phosphorus Magnesium Total Bilirubin AST ALT Alkaline Phosphatase Total Protein Albumin Blood Type O POSITIVE O POSITIVE Antibody Screen Negative Negative Crossmatch See Detail See Detail 06/06/19 06/06/19 06:33 06:33 WBC 5.2 RBC 2.97 L Hgb 9.6 L Hct 27.6 L D MCV 92.8 MCH 32.4 MCHC 34.9 RDW 15.4 Plt Count 142 MPV 8.2 Absolute Neuts (auto) 3.3 Neutrophils % 63.7 Lymphocytes % 19.6 D Monocytes % 11.4 H Eosinophils % 5.0 H D Basophils % 0.3 Nucleated RBC % 0 Sodium 136 Potassium 3.4 L Chloride 98 Carbon Dioxide 35 H Anion Gap 3 L BUN 7.2 Creatinine 0.3 L Est GFR (CKD-EPI)AfAm 149.39 Est GFR (CKD-EPI)NonAf 128.90 Random Glucose 132 H Calcium 7.6 L Phosphorus 2.5 Magnesium 1.7 L Total Bilirubin 0.8 AST 14 L ALT 18 Alkaline Phosphatase 59 Total Protein 4.8 L Albumin 2.0 L Blood Type Antibody Screen Crossmatch ASSESSMENT AND PLAN: POD #4 S/P Bilateral Breast Reconstruction with VERENICE flap/Bilateral Rib Resections/Bilateral SIEV ligations POD #3 Exploration of left chest wound with evacuation and hematoma and revision of flap History of Breast CA Anemia Transfusion thresholds per Surgery Pain control Incentive spirometry Monitor H/H Monitor drain output Flap monitoring PO as tolerated DVT prophylaxis Floor Dr Fields
[2019-06-06] MEDS: HEPARIN NA (PORCINE) 5,000 UNITS/ML 1ML VIAL SQ SCH (09:37)
[2019-06-06] MEDS ORDERED: POTASSIUM CHLORIDE TABS 20 MEQ TABLET.ER (FP) PO ONE (09:59)
[2019-06-06] MEDS ORDERED: MAGNESIUM SULF 50% (8.12 MEQ/2 ML-1 GM VIAL) IVPB ONE (09:59)
--- NOTE | 2019-06-06 10:08 | PN ---
Progress Note, Physician History of Present Illness: OOB IN CHAIR NO COMPLAINTS OFFERRED LOW GRADE TEMP NOTED WBC WNL BC (-) - Current Medication List Current Medications: Active Medications Fentanyl (Sublimaze Injection -) 50 mcg IVPUSH [id number] PRN PRN Reason: PAIN-PACU ORDER X 4 DOSES ONLY Last Admin: 06/02/19 20:30 Dose: 50 mcg Heparin Sodium (Porcine) (Heparin -) 5,000 unit SQ BID ABEL Last Admin: 06/06/19 09:37 Dose: 5,000 unit Vancomycin HCl (Vancomycin (Pre-Docked)) 1,000 mg in 250 mls @ 166.667 mls/hr IVPB Q12H ABEL; Protocol Last Admin: 06/06/19 05:02 Dose: 166.667 mls/hr Cefepime HCl 2 gm/ Dextrose 100 mls @ 200 mls/hr IVPB Q8H-IV ABEL; Protocol Last Admin: 06/06/19 09:37 Dose: 200 mls/hr Metoclopramide HCl (Reglan Injection -) 10 mg IVPB Q6H PRN PRN Reason: NAUSEA AND/OR VOMITING Ondansetron HCl (Zofran Injection) 4 mg IVPUSH Q6H PRN PRN Reason: NAUSEA AND/OR VOMITING Prochlorperazine Maleate (Compazine Suppository -) 25 mg RI Q12H PRN PRN Reason: NAUSEA AND/OR VOMITING - Objective Vital Signs: Vital Signs Temperature 98.6 F 06/06/19 04:00 Pulse Rate 92 H 06/06/19 06:00 Respiratory Rate 13 06/06/19 06:00 Blood Pressure 88/58 L 06/06/19 06:00 O2 Sat by Pulse Oximetry (%) 99 06/05/19 20:09 Constitutional: Yes: No Distress Eyes: Yes: Conjunctiva Clear Cardiovascular: Yes: Regular Rate and Rhythm, S1, S2 Respiratory: Yes: CTA Bilaterally Gastrointestinal: Yes: Normal Bowel Sounds, Soft, Other (SURGICAL WOUND NO ERYTHEMA/ DRAINAGE). No: Tenderness Breast(s): Yes: Other (SURGICAL WOUNDS NO ERYTHEMA / DRAINAGE) Labs: CBC, BMP 06/06/19 06:33 06/06/19 06:33 INR, PTT INR 1.39 (0.83-1.09) H 06/03/19 05:00 Assessment/Plan POST OP VERENICE FLAP POST OP EVACUATION OF HEMATOMA LOW GRADE FEVER CONTINUE EMPIRIC VANCOMYCIN /CEFEPIME
--- NOTE | 2019-06-06 10:16 | PN ---
Physical Exam: SUBJECTIVE: Patient seen and examined. no acute events overnight. offers no complaints. says she is feeling better. OBJECTIVE: Vital Signs Period Temp Pulse Resp BP Sys/Wolf Pulse Ox Last 24 Hr 97.9 F-100.2 F 92-111 13-21 88-107/54-86 99-99 GENERAL: a/o x 3, in nad HEENT: EOMI, moist mucous membranes, supple neck LUNGS:cta b/l, no rales rhonchi or wheezing HEART:RRR, nl S1/S2 without murmur, rub or gallop. ABDOMEN: Non-tender, non-distended. BISAMRK drains in place x4 with serosanguinous drainage. Abd binder in place c/d/i. EXTREMITIES: 2+ pulses, warm, well-perfused, no edema. SCDs in place. Calves non -tender. NEUROLOGICAL: Normal speech SKIN: Skin flaps soft, warm, non-tender to palpation. Doppler pulses bilaterally over skin flaps. Laboratory Results - last 24 hr 06/02/19 06/05/19 06/05/19 06:32 08:20 16:20 WBC 8.0 RBC 3.72 Hgb 11.7 Hct 34.7 D MCV 93.3 MCH 31.5 MCHC 33.8 RDW 15.7 H Plt Count 149 D MPV 8.0 Absolute Neuts (auto) 5.7 Neutrophils % 71.3 Lymphocytes % 15.0 Monocytes % 10.9 H Eosinophils % 2.6 Basophils % 0.2 Nucleated RBC % 0 Sodium Potassium Chloride Carbon Dioxide Anion Gap BUN Creatinine Est GFR (CKD-EPI)AfAm Est GFR (CKD-EPI)NonAf Random Glucose Calcium Phosphorus Magnesium Total Bilirubin AST ALT Alkaline Phosphatase Total Protein Albumin Blood Type O POSITIVE O POSITIVE Antibody Screen Negative Negative Crossmatch See Detail See Detail 06/06/19 06/06/19 06:33 06:33 WBC 5.2 RBC 2.97 L Hgb 9.6 L Hct 27.6 L D MCV 92.8 MCH 32.4 MCHC 34.9 RDW 15.4 Plt Count 142 MPV 8.2 Absolute Neuts (auto) 3.3 Neutrophils % 63.7 Lymphocytes % 19.6 D Monocytes % 11.4 H Eosinophils % 5.0 H D Basophils % 0.3 Nucleated RBC % 0 Sodium 136 Potassium 3.4 L Chloride 98 Carbon Dioxide 35 H Anion Gap 3 L BUN 7.2 Creatinine 0.3 L Est GFR (CKD-EPI)AfAm 149.39 Est GFR (CKD-EPI)NonAf 128.90 Random Glucose 132 H Calcium 7.6 L Phosphorus 2.5 Magnesium 1.7 L Total Bilirubin 0.8 AST 14 L ALT 18 Alkaline Phosphatase 59 Total Protein 4.8 L Albumin 2.0 L Blood Type Antibody Screen Crossmatch Active Medications Generic Name Dose Route Start Last Admin Trade Name Freq PRN Reason Stop Dose Admin Fentanyl 50 mcg 06/02/19 16:48 06/02/19 20:30 Sublimaze Injection - IVPUSH 50 mcg [id number] PRN Administration PAIN-PACU ORDER X 4 DOSES ONLY Heparin Sodium (Porcine) 5,000 unit 06/04/19 22:00 06/06/19 09:37 Heparin - SQ 5,000 unit BID ABEL Administration Vancomycin HCl 1,000 mg in 250 mls @ 166.667 mls/hr 06/03/19 17:00 06/06/19 05:02 Vancomycin (Pre-Docked) IVPB 166.667 mls/hr Q12H ABEL Administration Protocol Cefepime HCl 2 gm/ Dextrose 100 mls @ 200 mls/hr 06/03/19 18:00 06/06/19 09: 37 IVPB 200 mls/hr Q8H-IV ABEL Administration Protocol Metoclopramide HCl 10 mg 06/02/19 17:21 Reglan Injection - IVPB Q6H PRN NAUSEA AND/OR VOMITING Ondansetron HCl 4 mg 06/02/19 17:21 Zofran Injection IVPUSH Q6H PRN NAUSEA AND/OR VOMITING Prochlorperazine Maleate 25 mg 06/02/19 17:21 Compazine Suppository - [place] Q12H PRN NAUSEA AND/OR VOMITING ASSESSMENT/PLAN: #POD #4 S/P Bilateral Breast Reconstruction with VERENICE flap/Bilateral Rib Resections/Bilateral SIEV ligations #POD #3 Exploration of left chest wound with evacuation and hematoma and revision of flap #History of Breast CA #Anemia -Pain control -Incentive spirometry -Monitor H/H -Monitor drain output -Transfusion thresholds per Surgery -Flap monitoring -tolerating po -DVT prophylaxis Can be transferred to [facility] [place] Visit type - Emergency Visit Emergency Visit: Yes ED Registration Date: 06/02/19 Care time: The patient presented to the Emergency Department on the above date and was hospitalized for further evaluation of their emergent condition. - New Patient This patient is new to me today: Yes Date on this admission: 06/06/19 - Critical Care Critical Care patient: Yes Total Critical Care Time (in minutes): 35 Critical Care Statement: The care of this patient involved high complexity decision making to prevent further life threatening deterioration of the patient 's condition and/or to evaluate & treat vital organ system(s) failure or risk of failure. ATTENDING PHYSICIAN STATEMENT I saw and evaluated the patient. I reviewed the resident's note and discussed the case with the resident. I agree with the resident's findings and plan as documented. SUBJECTIVE: OBJECTIVE: ASSESSMENT AND PLAN:
[2019-06-06] MEDS ORDERED: DOCUSATE SODIUM 100 MG CAPSULE (FP) PO SCH (10:45)
[2019-06-06] MEDS ORDERED: POLYETHYLENE GLYCOL 3350 119 GM BTL PO ONE (15:31)
--- NOTE | 2019-06-06 15:37 | PN ---
Progress Note (short form) - Note Progress Note: POD 4 from flap. All tissues are viable without any signs of infection, collection, or ischemia Flaps with good signals and color Patient subjectively improved with good response to transfusion BISMARK's are pure serous. There is clearly no bleeding. OK for discharge with instructions
[2019-06-06 17:33] VITALS: BP 100/76; PULSE 95; TEMP 98.4
--- NOTE | 2019-06-08 14:50 | SURG ---
Surgery Textile Knitter Note Textile Knitter: ERIKA Mitchell Date of Service: 06/02/19 Diagnosis: Breast Cancer Procedure: Bilateral breast reconstruction with VERENICE (deep inferior epigastric perforators ) flap I was present for the entirety of the operative procedure. For further detail, please refer to operative report. Visit type - Case Type Case Type: Scheduled - New patient This patient is new to me today: Yes Date on this admission: 06/08/19
--- NOTE | 2019-06-11 12:54 | OP ---
DATE OF OPERATION: 06/02/2019 ADDENDUM Please add the rn first assist to the operation is Kimo oYo MD. He is the rn first assist for the VERENICE flap reconstruction of the bilateral breasts. MADHAV FERREIRA M.D. [id number]
--- NOTE | 2019-06-11 13:20 | OP ---
DATE OF OPERATION: 06/02/2019 ADDENDUM SURGEON: Jerome Bailey MD CO-SURGEON: Efraín Lehman MD BLANKET WASHER: Kimo Yoo MD SECOND SEWING MACHINE OPERATOR PAPER BAGS: ERIKA Bruno PREOPERATIVE DIAGNOSIS: Breast cancer to the right breast but acquired absence of bilateral breasts. POSTOPERATIVE DIAGNOSIS: Breast cancer to the right breast but acquired absence of bilateral breasts. ANESTHESIA: General endotracheal anesthesia. Darlene [place]/[id number]
== END 2019-06-06 18:00 | disposition home health service (06) | DRG 363 ==
LOC: JSAMEDAYSX 06:21 → JICU 20:05
PROVIDERS: ADMIT Plastic Surgery; ATTEND Plastic Surgery
PROC: 0PT10ZZ Resection of 1 to 2 Ribs, Open Approach (ICD-10-PCS; 2019-06-03)
PROC: 0H9 Skin and Breast, Drainage (ICD-10-PCS; 2019-06-03)
PROC: 30233N1 Transfusion of Nonautologous Red Blood Cells into Peripheral Vein, Percutaneous Approach (ICD-10-PCS; 2019-06-03)
PROC: 0HRV077 Replacement of Bilateral Breast using Deep Inferior Epigastric Artery Perforator Flap, Open Approach (ICD-10-PCS; principal; 2019-06-03 09:00)
DX: Z42.1 Encounter for breast reconstruction following mastectomy (principal); L76.32 Postprocedural hematoma of skin and subcutaneous tissue following other procedure; D62 Acute posthemorrhagic anemia; R00.0 Tachycardia, unspecified; Y83.9 Surgical procedure, unspecified as the cause of abnormal reaction of the patient, or of later complication, without mention of misadventure at the time of the procedure
CPT/HCPCS: 36415; 36430; 36511; 71045-TC-FY; 80053; 82565; 83605; 83735; 84100; 84300; 85025; 85027; 85610; 86850; 86900; 86901; 86922; 87040; 94760; 97161-GP; J0131; J1644; J7030; P9038; P9058

== ENCOUNTER → 2021-05-03 | Day surgery (SDC) | payer MEDICARE, OTHER | END | disposition home or self-care (01) | LOC: JRADIR 09:18 | PROVIDERS: ATTEND Internal Medicine Hematology & Oncology | PROC: 0G9K3ZX Drainage of Thyroid Gland, Percutaneous Approach, Diagnostic (ICD-10-PCS; principal; 2021-05-03) | DX: E04.1 Nontoxic single thyroid nodule (principal) | CPT/HCPCS: 10005; 76942 ==